=== PATIENT | female | born 1995 | race Caucasian/White ===

== ENCOUNTER 2018-10-06 20:30 | Observation (INO) | payer OTHER, SELFPAY ==
[2018-10-06 20:32] VITALS: BP 116/68; PULSE 73; RESP 27; TEMP 36.4; O2SAT 100; BMI 27.4
--- NOTE | 2018-10-06 20:38 | NURSING ---
PT WITH ABRASION TO RIGHT KNEE.
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
[2018-10-06] MEDS: Morphine 4 MG/ML Syringe IV (20:55)
[2018-10-06] MEDS: Ondansetron 4 MG/2 ML Vial IV (20:55)
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
[2018-10-06 21:30] VITALS: BP 126/72; PULSE 88; RESP 20; O2SAT 100
[2018-10-06 22:00] VITALS: BP 133/83; PULSE 85; RESP 16; O2SAT 100
[2018-10-06 23:00] VITALS: BP 118/71; PULSE 98; RESP 20; O2SAT 100
[2018-10-06] MEDS: Diphth,Pertuss(Acell),Tet Vac 0.5 ML Vial IM (23:58)
[2018-10-06] MEDS: Lidocaine/Epi/Tetracaine 50 ML 1 APPLIC TOPICAL (23:59)
[2018-10-07] VITALS: BP 121/66; PULSE 81; RESP 16; O2SAT 99
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
[2018-10-07] MEDS: Ibuprofen 600 MG Tablet PO (01:46)
[2018-10-07] MEDS: proMETHazine 25 MG/ML Syringe 6.25 MG IV (01:47)
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
[2018-10-07 03:49] VITALS: BMI 28.3; BMI 28.4
[2018-10-07 04:00] VITALS: BP 117/68; PULSE 76; RESP 18; TEMP 37; O2SAT 98
[2018-10-07] MEDS: 0.9% Normal Saline 1,000 ML 125 ML IV (04:22)
[2018-10-07] MEDS: 0.9% NaCl Peripheral Flush Adult/Peds IV ×2 (04:23→10:42)
[2018-10-07 05:12] LABS: Absolute Lymphocyte Count 1.49 X10^3/ul (0.83-4.51); Absolute Neutrophil Count 10.5 X10^3/uL (2.0-7.7); Basophil# 0.04 X10^3/uL; Basophil% 0.3 % (0-1); Eosinophil# 0.08 X10^3/uL; Eosinophils% 0.6 % (0-5); Hematocrit 38.8 % (37-47); Hemoglobin 12.5 g/dl (12.0-15.0); Lymphocyte # 1.49 X10^3/ul (4.0); Lymphocyte % 11.5 % (19-41); Mean Corp Hgb Conc 32.2 g/gl (32-36); Mean Corpuscular Hgb 26.5 pg (27.0-32.0); Mean Corpuscular Volume 82.4 fL (81-99); Mean Platelet Vol. 11.4 fl (6.2-12.0); Monocyte% 6.2 % (0-10); Neutrophil # 10.51 X10^3/uL (2.7-7.7); Neutrophil % 81.2 % (47-70); Platelet Count 288 K/mm3 (150-450); RBC Distribution Width CV 14.3 % (11.6-14.6); RBC Distribution Width SD 42.9 fl (35.1-43.9); Red Blood Count 4.71 M/mm3 (4.2-5.4)
[2018-10-07 05:17] LABS: POSITIVE COUNT NO; POSITIVE DIFFERENTIAL NO; POSITIVE MORPHOLOGY NO
[2018-10-07 05:20] LABS: Anion Gap 11 (5-15); BUN 11 mg/dL (7-18); BUN/Creat Ratio 12.6 RATIO (10-20); Calcium,Total 8.8 mg/dL (8.5-10.1); Chloride 109 mmol/L (98-107); Creatinine, Serum 0.87 mg/dL (0.55-1.02); EST Glomerular Filtration Rate 85 mL/min (>60); Est Glom Filt Rate - Afr Amer 103 mL/min (>60); Estimated Creatinine Clearance 89.72 ml/min; Glucose 96 mg/dL (74-106); Potassium 4.2 mmol/L (3.5-5.1); Sodium Level 137 mmol/L (136-145)
[2018-10-07 05:21] VITALS: BP 120/68
[2018-10-07 08:30] VITALS: BP 97/54; PULSE 73; RESP 18; TEMP 36.9; O2SAT 100
[2018-10-07] MEDS: Ketorolac 30 MG/ML Syringe IV (10:42)
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
[2018-10-07 13:06] VITALS: BP 109/59; PULSE 72; RESP 18; TEMP 36.7; O2SAT 100
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
== END 2018-10-07 13:15 | disposition home or self-care (01) ==
LOC: ED 21:04 → MS3 10-07 03:04
PROVIDERS: Admitting Provider Student in an Organized Health Care Education/Training Program; Emergency Provider Emergency Medicine; Family Provider Pediatrics; PCP Pediatrics; Visit Provider Internal Medicine
DX: F07.81 Postconcussional syndrome (principal); S81.011A Laceration without foreign body, right knee, initial encounter; V49.50XA Passenger injured in collision with unspecified motor vehicles in traffic accident, initial encounter; Y93.9 Activity, unspecified; Y92.9 Unspecified place or not applicable; Y99.9 Unspecified external cause status; S00.91XA Abrasion of unspecified part of head, initial encounter; R10.9 Unspecified abdominal pain; S90.31XA Contusion of right foot, initial encounter
CPT/HCPCS: 12001; 70450; 71260; 72125; 73564; 73630; 74177; 80048; 85025; 90715; 96361; 96374; 96375; 99218; 99285; J7030; Q9967; A4216; G0378; J2405

== ENCOUNTER 2018-12-26 08:07 | Day surgery (SDC) | payer OTHER, SELFPAY ==
[2018-10-07 03:49] VITALS: BMI 28.3
--- NOTE | 2018-12-25 13:42 | HP.PCM_ITS ---
History and Physical Date of Admission: 12/26/18 Pre-Op History and Physical ? HPI: The patient is a 23 year old female presenting for pre-operative visit. She is scheduled for laparoscopic removal of left adnexal mass, likely ovarian cyst or paratubal cyst, for adnexal mass on?12/26/18. ??Procedure discussed along with risks, benefits and complications. ?Other alternatives discussed for management. Consent form signed??Yes.? PAST?MEDICAL?HISTORY PAST MEDICAL HISTORY Diagnosis Date ? Irregular menstrual cycle ? ? Menarche ? ? 2007 age 11 ? NEGATIVE HISTORY OF --2011 ? Normal Color Vision ? ? PAST?SURGICAL?HISTORY PAST SURGICAL HISTORY Procedure Laterality Date ? NONE ? CURRENT?MEDICATIONS ? Current Outpatient Medications: zonisamide (ZONEGRAN) 50 mg capsule Take 1-3 capsules by mouth once daily. Disp: 90 capsule Rfl: 3 albuterol HFA (PROAIR HFA) 90 mcg/actuation inhaler Inhale 2 Puffs as instructed every 4 hours as needed. Disp: 1 Inhaler Rfl: 0 ? No current facility-administered medications for this visit.? ? ALLERGIES:?Ceclor [Cefaclor]; Environmental [Other] ? PERSONAL HISTORY:? SOCIAL?HISTORY Social History ??Socioeconomic History ?Marital status: Single ?Spouse name: Not on file ?Number of children: 0 ?Years of education: Not on file ?Highest education level: Not on file ??Social Needs ?Financial resource strain: Not on file ?Food insecurity - worry: Not on file ?Food insecurity - inability: Not on file ?Transportation needs - medical: Not on file ?Transportation needs - non-medical: Not on file ??Occupational History ?Comment: student/[place] ??Tobacco Use ?Smoking status: Never Smoker ?Smokeless tobacco: Never Used ??Substance and Sexual Activity ?Alcohol use: No ?Drug use: No ?Sexual activity: Not Currently ?Comment: never SA ??Other Topics ?Concerns: ?Not on file ??Social History Narrative ?Not on file ? FAMILY HISTORY:? FAMILY?HISTORY FAMILY HISTORY Problem Relation Age of Onset ? Heart Father ?Stent - 09/2007 ? Cervical Cancer Maternal Grandmother ? ? Cancer Paternal Grandfather ? ? REVIEW OF SYMPTOMS: GENERAL: denies fevers or chills ENDOCRINOLOGY: has not been on steroids Cardiology : denies palpitations or chest pain Respiratory: denies SOB or cough Hematology: denies history of prolonged bleeding or easy bruising or VTE Allergy: Denies history of personal or family history of allergy to anesthesia ? ? PHYSICAL EXAMINATION: ? VITALS:?There were no vitals taken for this visit. ? GENERAL:??The patient is well nourished, well hydrated in no acute distress. ?, The patient is oriented to time, place, and person. NECK:?Supple. No lynphadenopathy, normal thyroid, no thyromegaly. LUNGS:?Clear to auscultation bilaterally. no wheezes, rhonchi or rales HEART:?Regular rate and rhythm, Normal heart sounds and No murmurs or gallops ? IMPRESSION:?left adexal mass, likely ovarian cyst or paratubal cyst ? PLAN:???The risks/benefits/alternatives and personal involved for the planned laparoscopic removal of left adnexal mass were reviewed with the patient. Her questions were answered to her satisfaction and she desires to proceed. ?Consent was signed. ?I reviewed with her postop instructions and expectations. ?Likely benign but discussed with her final determination cannot be made until pathology is back. Understands small risk of oophorectomy. ?Does not need to have ca 125 drawn ? ? I have reviewed and updated past medical and surgical history, medications and allergies? H&P completed in my office on 12/25/18. Taylor Maldonado M.D. No clinically relevant updates since entered.
[2018-12-26] VITALS (8 sets, daily range): BP systolic 112–127; BP diastolic 67–74; PULSE 52–100; RESP 16–18; TEMP 36.1–37.1; O2SAT 99–100; BMI 27.5
--- NOTE | 2018-12-26 | MASS_PTH ---
PATIENT: STAN DAI LOC: [facility] [place] U#:[id number] AGE/SX: 23/F ROOM: RE12/26/[address]: Dr. Taylor Maldonado MD : 1995 BED: DIS: 12/26/2018 SPEC #: [id number] RECD: 12/26/18 10:40 STATUS: UDLCE CINDI #: [id number] KENYA: 12/26/18 00:[address]: Taylor Maldonado DEPT: SURGICAL PATHOLOGY RECD BY: Kiley Li ENTERED: 12/26/18 11:04 SP TYPE: Mass OTHR DR: Dr. Kirk Prasad DO Tissues: A - OVARIAN CYST Procedures: Frozen Section (charge) Frozen Section Add'l ([facility]) Surgery Specimen Level IV Surgery Specimen Level V HEADER OPERATION: Laparoscopic left ovarian cystectomy, frozen section; left salpingo-oophorectomy PRE-OP DIAGNOSIS: Left adnexal mass TISSUE SUBMITTED: A - Left ovarian cyst wall, frozen section, B - Left ovary and fallopian tube FROZEN SECTION DIAGNOSIS A. Left ovarian cyst wall, biopsy: Negative for malignancy. MIGUEL ÁNGEL:lis 12/26/18 MICROSCOPIC DIAGNOSIS A. Left ovarian cyst wall, biopsy: Consistent with fragments of serous cystadenofibroma. B. Left ovary and fallopian tube, salpingo-oophorectomy: Serous cystadenofibroma. Hemorrhagic corpus luteal cysts. Left fallopian tube with no pathologic change. AM:lis 12/27/18 COMMENT Case has been reviewed in consultation with Dr. Mccray who concurs with the above diagnosis. IDC:MIGUEL ÁNGEL MICROSCOPIC DESCRIPTION Slides are reviewed. GROSS DESCRIPTION A - Received fresh for frozen section diagnosis labeled with the patient's name is a specimen designated left ovarian cyst wall. The specimen consists of a piece of saunders, indurated tissue consisting of cyst wall measuring 4 x 2 x 0.3 cm. One surface is inked. No papillations are identified. The entire specimen is submitted in two cassettes as follows: 1 - frozen section, 2 - rest of the specimen. B - Received in fixative is one container labeled with the patient's name and designated left ovary and fallopian tube. The specimen consists of a previously opened cyst, fallopian tube and ovary. The previously opened cyst is adherent to the fimbrial end of the fallopian tube. No connection of this cyst is noted with the ovary. The fallopian tube measures 9 cm in length and up to 0.7 cm in diameter. No tuboovarian adhesions are noted. A focal area of adhesion of fimbrial end with the cyst is noted. Sections of fallopian tube reveal unremarkable cut surfaces. The soft to cystic ovary measures 5 x 2.5 x 2 cm. Sections reveal multiple cysts filled with clear to hemorrhagic fluid. The largest cyst measures 1.5 cm in greatest dimension. A hemorrhagic corpus luteum is also noted measuring 1 cm in greatest dimension. The previously opened cyst measures 8.5 x 6.5 x 2 cm. The outer cyst wall is smooth. The inner cyst wall shows focal area of papillation. The largest area of papillation measures 4 x 1 x 0.3 cm. The cyst wall measures up to 0.2 cm in thickness. Embossing Press Operator Apprentice sections are submitted in eight cassettes as follows: 1 - fallopian tube, 2-4 - ovary, 5 - ovary with adherent portion of fimbrial end of the fallopian tube, 6-8 - cyst, entire area with papillation is submitted. / MIGUEL ÁNGEL:lis 12/26/18 TC:1 CPT: 17775, 04691, 40083, 74795
--- NOTE | 2018-12-26 | FLU_PTH ---
PATIENT: STAN DAI LOC: [facility] [place] U#:[id number] AGE/SX: 23/F ROOM: RE12/26/[address]: Dr. Taylor Maldonado MD : 1995 BED: DIS: 12/26/2018 SPEC #: [id number] RECD: 12/26/18 12:50 STATUS: DULCE CINDI #: [id number] KENYA: 12/26/18 00:[address]: Taylor Maldonado DEPT: CYTOLOGY RECD BY: Sunil Márquez ENTERED: 12/26/18 12:51 SP TYPE: Fluid OTHR DR: Dr. Kirk Prasad, Tissues: OVARIAN CYST Procedures: Special Stain Group II Surgery Specimen Level IV Cytospin Fluid HEADER OPERATION: Left ovarian cystectomy PRE-OP DIAGNOSIS: Left adnexal mass TISSUE SUBMITTED: Ovarian cyst fluid for cytology DIAGNOSIS CYTOLOGY Ovarian cyst fluid for cytology (cytospin and cell block): Negative for malignant cells. AM:lis 12/27/18 CYTOLOGY STUDY Slides are reviewed. CYTOLOGY GROSS Received is 25 ml of clear yellow fluid labeled with the patient's name and and designated per the requisition as left ovarian cyst. Submitted for cytology preparation including cell block. / 12/26/18 TC:5 CPT: 88760, 37809
[2018-12-26 08:31] LABS: Internal QC Validated? YES +Cl - CLEAR BKGD; Pregnancy, Urine Negative Negative
[2018-12-26 09:00] LABS: Hematocrit 39.7 % (37-47); Hemoglobin 12.9 g/dl (12.0-15.0); Mean Corp Hgb Conc 32.5 g/gl (32-36); Mean Corpuscular Volume 83.1 fL (81-99); Mean Platelet Vol. 11.2 fl (6.2-12.0); Platelet Count 289 K/mm3 (150-450); RBC Distribution Width CV 13.8 % (11.6-14.6); RBC Distribution Width SD 41.8 fl (35.1-43.9); Red Blood Count 4.78 M/mm3 (4.2-5.4); White Blood Count 5.9 K/mm3 (4.4-11.0)
[2018-12-26] MEDS: Celecoxib 200 MG Capsule PO (09:00)
[2018-12-26] MEDS: Acetaminophen 500 MG Tablet 1000 MG PO (09:00)
[2018-12-26 09:01] LABS: Scan Indicated on CBC? Y/N NO
[2018-12-26] MEDS: Bupivacaine Mpf 0.5% 30 ML VIAL (09:12)
[2018-12-26 11:06] LABS: Cytology, Body Fluid / CSF SEE PATHOLOGY REPORT
--- NOTE | 2018-12-26 11:10 | PCM.DC.TUB ---
Discharge Diet: No Restrictions - Increase fluid intake for the next 48 hours. Discharge Activity: Return to Normal Activity, May Drive - when you are no longer taking pain/narcotic meds., May Shower, May Take a Tub Bath - in 7 days Return to work on:: 12/31/18 May shower in (days): 1 May resume sexual activity in: 1 week Additional Activity Instructions:: Ambulate often the next week after surgery. Nothing in the vagina for 5 days. Call your doctor if your incision/area has: Continuous Slow Oozing, Sudden Increased Bleeding, Increased Pain/ Swelling, Increased Redness, Foul Smelling Discharge Call your doctor if you observe: Fever of 101 or Higher Cleanse incision/area with: Soap & Water, - - leave skin glue on for at least 10 days Allergies/Adverse Reactions: Allergies cefaclor [From Ceclor] Allergy (Verified 12/26/18 08:45) Unknown Medications to take at Discharge Zonisamide [Zonegran] 50 mg PO DAILY 12/19/18 Hydrocodone Bitart/Apap 5-325 [[place] 5MG-325MG] 1 tablet PO Q6H PRN PRN 4 Days #14 tablet 12/26/18 Ibuprofen [Motrin] 600 mg PO Q6H PRN #60 tablet 12/26/18 The following prescriptions were given: Hydrocodone Bitart/Apap 5-325 [[place] 5MG-325MG] 1 tablet PO Q6H PRN PRN 4 Days #14 tablet PRN Reason: Pain Ibuprofen [Motrin] 600 mg PO Q6H PRN #60 tablet PRN Reason: Pain Primary Care Physician: Kirk Prasad DO [Primary Care Provider] - Test Results: Test results from this visit will be discussed in further detail at your follow-up appointment, if applicable. Please Follow Up With: Taylor Maldonado MD - [phone] When: 1-3 weeks or prn
--- NOTE | 2018-12-26 11:12 | OP.PCM_ITS ---
Report of Operation Date of Procedure: 12/26/18 Pre-Operative Diagnosis: left ovarian cyst Post-Operative Diagnosis: same Surgery/Procedure Performed:: Laparoscopic left salpingo-oophorectomy Description of Surgical Findings:: Normal-appearing right tube and ovary, uterus, appendix and remainder of peritoneal cavity. Left ovary there is an approximately a 5 x 5 x 4 cm ovary, the tube is stretched over this portion of the ovary and there is then a pedunculated area of the ovary that extends into the entire posterior cul-de-sac and feels this entire space. It is attached to the left ovary. The tube is stretched over this and around it. The ovarian cyst itself is smooth. There are no excrescences externally. The cyst fluid was clear to grayish-yellow color. There did appear to be some excrescences on the inside of the ovarian cyst and the wall was very thick and firm. advisory application developer: Scar Minor advisory application developer: Cassidy Lindsey [email or web address] Type of Anesthesia:: General Special Medications: none Specimen's removed: left tube and ovary, ovarian cyst fluid Drains: none Estimated Blood Loss (mL): 10 Fluids Replaced: 1000cc Description of Procedure: The patient was taken to the operating room where she was prepped and draped in the dorsolithotomy position. A weighted speculum was placed in the vagina and the anterior lip of the cervix was grasped with a tenaculum. The Konn cannula uterine manipulator was placed and the remainder of the instruments were removed from the vagina. The Radha uterine manipulator was not placed due to having an stenotic internal cervical loss. Attention was turned to the abdomen. All port sites were infiltrated with 0.5% Marcaine before skin incisions were made. A 5 mm intraumbilical incision was made. The anterior abdominal wall was tented up with 2 towel clamps while a 5 mm blade less trocar and sleeve were directly inserted. Intraperitoneal placement was confirmed with the laparoscope. The pneumoperitoneum was created and the underlying abdominal contents were intact. The patient was placed in Trendelenburg. A left lower quadrant 5 mm was placed under direct visualization lateral to the inferior epigastric vessels. The bowel was swept away and the above findings were noted. Decision was then made to place a 12 mm port in the right lower quadrant. This was placed under direct visualization without difficulty. The suction director of corporate sponsorships was used to perforate the ovarian cyst and some of the fluid was suctioned out. Some of the fluid was collected to send a cytology. Scissors were then used to extend the incision in the ovary and it was noted that the thick wall was very firm and difficult to cut with the scissors. I then attempted to shell the cyst wall away from the ovary, but it was so adherent that I was unable to do so. It was then noted that there was some excrescences on the cyst wall. A portion of the cyst wall that was approximately 2 x 2 cm was excised with the LigaSure device and sent for frozen section. I then used the LigaSure device and attempted to remove the ovarian cyst and wall with the LigaSure device, but again the wall was so thick that it was difficult to get a grasp in the tissue with just slide directly out of the LigaSure every time I activated the device. The tube was also wrapped around the cyst. At this point, with the atypical appearance of the cyst and the large size, the decision was made that in order to remove the cyst the entire blood supply would have to be secured in the entire ovary removed. I attempted to separate the tube away from the ovary, but was unable to do so because of the dense adhesions between the 2. Decision was made to proceed with left salpingo- oophorectomy. The infundibulopelvic ligament was clamped, sealed and transected with the LigaSure device. The utero-ovarian ligament was clamped, transected and secured with the LigaSure device. The pedicles were hemostatic. The specimen was placed in an Endo Catch bag and brought out through the 12 mm port on the right side. The peritoneum and fascia had to be stretched somewhat to allow the specimen to come out intact in the bag. At this point, 2 L of saline were used to irrigate the peritoneal cavity. The pedicles were again examined and found to be hemostatic. An 0 Vicryl suture was placed through the fascia of the 12 mm port site and closure and secured. The lateral ports were removed under direct visualization and no active bleeding was noted. The pneumoperitoneum was released. The skin incisions were closed with Monocryl suture in a subcuticular fashion and skin glue by the DISTRIBUTION SYSTEMS SUPERINTENDENT. The vaginal instruments were removed and the vaginal sweep was completed by me. The procedure was performed by me with assistance other than as dictated above. All sponge and needle counts were correct and the patient was taken to the recovery room in stable condition. Grafts/Implants Used: none - Complications none - Admit VTE Documentation VTE Present on Admission: No VTE Mechan Device Prophylaxis: SCD's VTE Pharm Prophylaxis ordered?: No Reason prophylaxis not ordered:: Procedure Not Indicated
[2018-12-26] MEDS: Ketorolac 30 MG/ML Syringe IV (11:35)
== END 2018-12-26 14:43 | disposition home or self-care (01) ==
LOC: SDC 08:11 → AC 08:13
PROVIDERS: Family Provider Pediatrics; PCP Pediatrics; Referring Provider Obstetrics & Gynecology; Visit Provider Obstetrics & Gynecology
PROC: (CPT 58661; principal; 2018-12-26 09:45)
DX: N83.12 Corpus luteum cyst of left ovary (principal); Z79.899 Other long term (current) drug therapy; D27.1 Benign neoplasm of left ovary
CPT/HCPCS: 00840; 58661; 36415; 81025; 85027; 88108; 88305; 88307; 88313; 88331; 88332; J7120; J2405

== ENCOUNTER 2019-11-30 16:50 | Emergency (ER) | payer OTHER, SELFPAY ==
[2018-12-26 08:48] VITALS: BMI 27.5
[2019-11-30 16:50] VITALS: BP 134/74; PULSE 90; RESP 16; TEMP 36.6; O2SAT 100; BMI 26.8
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
[2019-11-30] MEDS: Ibuprofen 400 MG Tablet 800 MG PO (17:40)
== END 2019-11-30 18:42 | disposition home or self-care (01) ==
PROVIDERS: Emergency Provider Emergency Medicine; PCP Pediatrics
DX: S02.2XXA Fracture of nasal bones, initial encounter for closed fracture (principal); S16.1XXA Strain of muscle, fascia and tendon at neck level, initial encounter; R40.2410 Glasgow coma scale score 13-15, unspecified time; V49.9XXA Car occupant (driver) (passenger) injured in unspecified traffic accident, initial encounter; Y93.9 Activity, unspecified; Y92.9 Unspecified place or not applicable
CPT/HCPCS: 70160; 70450; 71045; 72125; 99283

== ENCOUNTER 2020-08-29 14:34 | Emergency (ER) | payer OTHER, SELFPAY ==
[2020-08-29 14:36] VITALS: BP 112/80; PULSE 70; RESP 16; TEMP 36.2; O2SAT 100; BMI 28.3
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
--- NOTE | 2020-08-29 14:53 | ED.VIS.UPPEX ---
History of Present Illness Chief Complaint: Upper Extremity Injury Informant: Patient Occurred: Today Mechanism/Context: Fall Onset: Today Context: Sudden Onset Timing: Continuous Quality of Pain: Sharp, Throbbing Location: Right hand and wrist Current Severity: Severe Maximum Severity: Severe Worsened by: Movement Relieved by: Rest Associated Symptoms: Negative for: Parasthesia, Weakness, Loss of Funtion Narrative: 25-year-old healthy female no significant past medical history [id number] presents to the emergency department with a right hand and wrist injury. She was on a sled being pulled by her mom's car and was holding onto a rope and she tried to fall off the sled and the rope got stuck on her hand and wrist jerked it and then she fell. Denies any other injuries. She was wearing a helmet. She is having pain and swelling over her hand and wrist. No history of injury or surgery previously. No numbness tingling or weakness. No other injuries are noted. Tetanus Immunization: Unknown Prior similar symptoms: No Recent Illness/Hospitalization: No Past Medical History - Allergies and Home Meds Allergies/Adverse Reactions: Allergies cefaclor [From Ceclor] Allergy (Verified 08/29/20 14:35) Unknown Primary Care Physician: Kirk Prasad DO [Primary Care Provider] - Prior records reviewed: Yes Past Medical History: None Surgical History: no surgical history, - - Left oophorectomy with cystectomy Smoking Status: Never smoker - Family History Maternal Family History: Reports: No pertinent history Paternal Family History: Reports: No pertinent history Review of Systems All systems negative except as indicated General: Denies: Chills, Fever, Sweats Eyes: Denies: Visual changes - bilaterally, Diplopia ENT: Denies: Rhinorrhea, Sore throat Cardiovascular: Denies: Chest pain, Palpitations Respiratory: Denies: Dyspnea, Cough, Dyspnea on exertion Gastrointestinal: Denies: Abdominal pain, Nausea, Vomiting, Diarrhea, Melena, Hematochezia Genitourinary: Denies: Dysuria, Hematuria, Frequency Musculoskeletal: Reports: Swelling, Extremity Pain. Denies: Back pain Skin: Denies: Rash, Wounds Neurological: Denies: Headache, Weakness, Numbness Physical Exam Vital Signs/Narrative: Vital Signs Temp Pulse Resp BP Pulse Ox 08/29/20 14:36 97.2 F L 70 16 112/80 100 Inital Vital Signs reviewed: Yes Right Hand: - - Swelling and bruising over the palmar aspect right hand over the thenar eminence. Diffusely tender on palpation over this area over the proximal phalanx of the thumb and the distal radius. No snuffbox tenderness. Limited range of motion of the thumb due to pain and swelling. NAROM wrist General: Well nourished, Well developed Head: Normocephalic, Atraumatic Eyes: Perrl, EOMI ENT: No Trauma, Moist Mucous Membranes Neck: Nontender, Full ROM Cardiovascular: Regular rate, Regular rhythm, No murmurs Respiratory: No distress, CTA bilaterally, Chest nontender Abdomen: Soft, Nontender, Nondistended, Normal bowel sounds Back: Nontender Skin: Normal color, No rash Neurological: Alert, Oriented x3, Cranial nerves II-XII grossly intact, Normal Strength, Normal Sensation Psychological: Normal affect Diagnostic/Tx/Re-eval Impressions Hand X-Ray 08/29/20 14:45 IMPRESSION: Normal x-ray examination of the hand. Electronically Signed: William Moura at 16:17 EST Tel , Service support , Wrist X-Ray 08/29/20 14:45 IMPRESSION: Normal x-ray examination of the wrist. Electronically Signed: Rm Torres MD at 15:54 EST , Service support , 08/29/20 14:45 Hand Min 3 Views [RAD] Stat Xray Wrist [Wrist min 3 Views] [RAD] Stat - Medical Decision Making Patient was given a dose of Tylenol for pain per her request. X-rays were obtained of the right hand and wrist, no acute abnormalities were noted per radiology. Repeat exam patient is feeling improved after the Tylenol. We will place her in a thumb spica splint for concern for a sprain of her thumb. She will be given follow-up with orthopedics. She has both Motrin and Tylenol at home to take for pain. She was advised to rest ice elevate and follow-up as directed or she is to return to the emergency department for worsening symptoms which were discussed. ED Disposition - Plan for ED Patient: Disposition: Home or Assisted Living Diagnosis: Sprain of hand, thumb, right, Sprain of right hand Instructions: ED Hand Sprain Referrals: Kirk Prasad DO [Primary Care Provider] - Pj Arellano DO [STAFF PHYSICIAN] -
[2020-08-29] MEDS: Acetaminophen 500 MG Tablet 1000 MG PO (15:48)
[2020-08-29 16:41] VITALS: RESP 16
== END 2020-08-29 16:42 | disposition home or self-care (01) ==
PROVIDERS: Emergency Provider Physician Assistant Medical; PCP Pediatrics
DX: S63.601A Unspecified sprain of right thumb, initial encounter (principal); S63.91XA Sprain of unspecified part of right wrist and hand, initial encounter; X50.1XXA Overexertion from prolonged static or awkward postures, initial encounter; Y93.23 Activity, snow (alpine) (downhill) skiing, snowboarding, sledding, tobogganing and snow tubing; Y92.9 Unspecified place or not applicable
CPT/HCPCS: 29125; 73110; 73130; 99283

== ENCOUNTER 2023-08-30 18:05 | Emergency (ER) | payer OTHER, SELFPAY ==
[2023-08-30 18:06] VITALS: BP 131/86; PULSE 88; RESP 18; TEMP 35.7; O2SAT 100; BMI 30.1
[2023-08-30 18:44] VITALS: BP 117/72; PULSE 71; RESP 16; O2SAT 98
--- NOTE | 2023-08-30 18:44 | ED.RN ---
PATIENT PRESENTS TAKE TO THE TRIAGE DESK COMPLAINS OF LIGHT HEADINESS SECONDARY EXAM COMPLETED
[2023-08-30 18:45] LABS: Absolute Lymphocyte Count 1.94 X10^3/uL (0.83-4.51); Absolute Neutrophil Count 4.7 X10^3/uL (2.0-7.7); Basophil# 0.07 X10^3/uL; Basophil% 0.9 % (0-1); Eosinophil# 0.39 X10^3/uL; Eosinophils% 5.1 % (0-5); Hematocrit 41.7 % (37-47); Hemoglobin 12.8 g/dL (12.0-15.0); Lymphocyte # 1.94 X10^3/ul (0.83-4.51); Lymphocyte % 25.5 % (19-41); Mean Corp Hgb Conc 30.7 g/dL (32-36); Mean Corpuscular Hgb 25.7 pg (27.0-32.0); Mean Corpuscular Volume 83.6 fL (81-99); Monocyte# 0.49 X10^3/uL; Monocyte% 6.4 % (0-10); NRBC Flagged by Analyzer 0 % (0-5); Neutrophil # 4.69 X10^3/uL (2.7-7.7); Neutrophil % 61.7 % (47-70); Platelet Count 333 K/mm3 (150-450); RBC Distribution Width CV 13.8 % (11.6-14.6); RBC Distribution Width SD 42.1 fl (35.1-43.9); Red Blood Count 4.99 M/mm3 (4.2-5.4); White Blood Count 7.6 K/mm3 (4.4-11.0)
[2023-08-30 18:53] LABS: Internal QC Validated? YES +Cl - CLEAR BKGD; Pregnancy, Serum, hCG Quali. NEGATIVE Negative
[2023-08-30 18:57] VITALS: BP 116/75; PULSE 76; RESP 18; O2SAT 100
[2023-08-30 19:01] LABS: AST(SGOT) 12 U/L (15-37); Alanine Aminotransfer ALT/SGPT 13 U/L (13-56); Alkaline Phosphatase 71 U/L (45-117); Anion Gap 5 (5-15); BUN 13 mg/dL (7-18); BUN/Creat Ratio 13.5 RATIO (10-20); Chloride 109 mmol/L (98-107); Creatinine, Serum 0.96 mg/dL (0.55-1.02); EST Glomerular Filtration Rate 73 mL/min (>60); Est Glom Filt Rate - Afr Amer 88 mL/min (>60); Estimated Creatinine Clearance 77.81 ml/min; Globulin 4.1 g/dL (2.2-4.2); Glucose 103 mg/dL (74-106); Potassium 3.3 mmol/L (3.5-5.1); Protein, Total 8.1 g/dL (6.4-8.2); Sodium Level 141 mmol/L (136-145)
--- NOTE | 2023-08-30 19:48 | ED.VIS.GI ---
HPI HPI - GI History of Present Illness Chief Complaint: Abd Pain Informant: patient Narrative Narrative: Patient having suprapubic cramping for the past 4 to 5 days, she states this started after her last menstrual cycle ended which was unusually irregular. She states the cramping feels like pelvic cramping that she gets during her cycle, as far as the type and location of discomfort. No back discomfort. She states for the past 2 or 3 days, she has had urinary frequency and urgency. No dysuria or hematuria. No fevers or chills or nausea or vomiting. However yesterday, the pain ramped up as she was doing light activity, helping to unload a truck at work, and she felt lightheaded like she may pass out but she did not. She eventually recovered and felt better but the pain persisted, just not as bad. The pain is there today but she has not had any near syncopal episodes today, but notes that when nursing placed an IV here prior to my evaluation, the needle made her feel like she was going to pass out as well. [facility] Medical History (Updated 08/30/23 @ 21:[address] Rm Connelly MD) Ovarian cyst Home Medications sulfamethoxazole 800 mg-trimethoprim 160 mg tablet 1 tab PO BID #6 TABLETS 08/30/23 [Rx Last Taken Unknown] Allergy/AdvReac Type Severity Reaction Status Date / Time cefaclor [From [facility]] Allergy Unknown Verified 08/30/23 18:06 Surgical History (Updated 08/30/23 @ 19:[address] Rm Connelly MD) History of left salpingo-oophorectomy Social History Smoking Status: Never smoker ROS ROS ED Constitutional Constitutional ED: Denies chills or fever(s) Eyes Eyes: Denies change in vision or diplopia ENT ENT ED: Denies rhinorrhea or sore throat Cardiovascular Cardiovascular: Reports lightheadedness; Denies chest pain, palpitations or syncope Respiratory/Chest Respiratory/Chest: Denies cough or dyspnea Gastrointestinal Gastrointestinal: Reports abdominal pain; Denies diarrhea, nausea or vomiting Genitourinary Genitourinary ED: Reports as per HPI, urinary frequency and urinary urgency; Denies dysuria, flank pain, hematuria, vaginal bleeding or vaginal discharge Musculoskeletal Musculoskeletal: Denies back pain or neck pain Integumentary Denies abscess or rash Neurologic Neurologic: Denies headache(s), paresthesias or weakness Psychiatric Psychiatric: Denies anxiety or suicidal thoughts EXAM Physical Exam Const Vital Signs: 08/30/23 18:06 08/30/23 18:44 08/30/23 18:57 Temperature 96.2 F L Temperature Source Temporal Pulse Rate 88 71 76 Respiratory Rate 18 16 18 Blood Pressure 131/86 H 117/72 116/75 Blood Pressure Mean 101 87 88 Pulse Ox 100 98 100 Oxygen Delivery Method Room Air Room Air Room Air Positive well nourished and well developed General Appearance ED: well developed and NAD HEENT Reports moist mucous membranes normocephalic and atraumatic Eyes PERRL and EOMs intact bilaterally Neck full ROM and supple Resp normal respiratory effort and clear to auscultation bilaterally Cardio regular rate, regular rhythm and no murmurs GI non-distended GI Narrative: Mild suprapubic tenderness. No lateralizing pelvic tenderness. No guarding or rebound. Benign abdomen overall. Auscultation: normoactive bowel sounds Palpation: soft Speculum Exam - Vagina: Negative for vaginal bleeding or vaginal discharge Back/Spine no CVA tenderness General Back: other FROM Extremity normal to inspection General Extremety ED: Negative for edema, pulses abnormal or tenderness General Extremity: Negative for edema or pulses abnormal Neuro oriented x3, CN's II-XII intact bilaterally and no sensory deficits noted Sensorium / Orientation: awake and alert Motor Exam: strength 5/5 throughout Skin no rashes or lesions noted and no wounds MDM MDM MDM Narrative Medical decision making narrative: Patient with urinary symptoms, seems like she has acute cystitis, this was confirmed with urinalysis. Seems uncomplicated I do not think we need to send her for culture she is healthy 28-year-old. Will place her on 3 days of Bactrim with the first dose being given here. The pain she is having certainly could be bladder related, in which case I would expect the pain and urinary symptoms to resolve together with the antibiotic. If not she should follow-up, indicating potential gynecologic etiology of the pain. Her exam is very benign and I do not think we need to emergently image her for an ovarian cyst or torsion, I discussed that with her and she is in agreement with this logic. She states that when urgent care sent her over here they said something about her appendix. I do not think this is appendicitis in any way, she has had pain for 5 days with a white blood count of 7.6, no leftward shift and no tenderness McBurney's point. I discussed that with her as well. We discussed reasons to return she comfortable with the plan. We did do a test which is negative, ruling out ectopic. With regards to the patient's lightheadedness and near syncopal episode yesterday, I suspect that this was vasovagal. She apparently has high vasovagal tone and/or is sensitive to this, especially since she had the exact same thing happen when nurses showed her the needle for the IV today. Lab Data Attestation: I reviewed the patient's lab results. Labs: Laboratory Results - last 24 hr 08/30/23 08/30/23 18:32 20:13 WBC 7.6 RBC 4.99 Hgb 12.8 Hct 41.7 MCV 83.6 MCH 25.7 L MCHC 30.7 L RDW Std Deviation 42.1 RDW Coeff of Imelda 13.8 Plt Count 333 MPV 11.0 Immature Gran % (Auto) 0.400 Neut % (Auto) 61.7 Lymph % (Auto) 25.5 [place] % (Auto) 6.4 Eos % (Auto) 5.1 H Baso % (Auto) 0.9 Absolute Neuts (auto) 4.7 Absolute Lymphs (auto) 1.94 Nucleated RBC % 0 Sodium 141 Potassium 3.3 L Chloride 109 H Carbon Dioxide 27.0 Anion Gap 5 BUN 13 Creatinine 0.96 Estim Creat Clear Calc 77.81 Est GFR (MDRD) Af Amer 88 Est GFR (MDRD) Non-Af 73 BUN/Creatinine Ratio 13.5 Glucose 103 Calcium 9.0 Total Bilirubin 0.30 AST 12 L ALT 13 Alkaline Phosphatase 71 Total Protein 8.1 Albumin 4.0 Globulin 4.1 Albumin/Globulin Ratio 1.0 Serum , Qual NEGATIVE Urine Color Yellow Urine Clarity Clear Urine pH 5.0 Ur Specific [place] 1.025 Urine Protein 15 H Urine Glucose (UA) Normal Urine Ketones 5 H Urine Occult Blood 150 H Urine Nitrite Negative Urine Bilirubin Negative Urine Urobilinogen Normal Ur Leukocyte Esterase 100 H Urine RBC 0-5 SEEN Urine WBC 25-50 SEEN Ur Squamous Epith Cells 0-5 SEEN Ur Transition Epith Cell 0 SEEN Urine Bacteria 0 SEEN Urine Mucus 1+ Discharge Plan Triage Chief Complaint: Abd Pain ED Provider: Rm Connelly Dx/Rx/DC Orders Clinical Impression: Acute cystitis without hematuria, Acute pelvic pain, female, Vasovagal near syncope Instructions: ED Cystitis Female Adult Prescriptions: New sulfamethoxazole-trimethoprim [sulfamethoxazole-trimethoprim] 800-160 mg tablet 1 tab PO BID Qty: 6 0RF Primary Care Provider: Sumaya Kaye NP Referrals: Sumaya Kaye NP, [facility] [Primary Care Provider] - 3-5 Days if not improving (If the antibiotic takes care of the urinary symptoms but the pain persists, follow-up) Disposition Disposition: Home, Self Care
--- OUTSIDE RECORDS SUMMARY | 2023-08-30 19:58 | XMS RPT_ITS | CCD ---
Author Name Unknown Address [address] [place] [address] Organization [facility] Care Team Providers Care Director Of Cardiopulmonary Services Name Role Phone BUCK ERWIN Referring Unavailable Mikki INTERNAL COMBUSTION ENGINE INSPECTOR.Sumaya GARRIDO Primary Care Provider SUMAYA KAYE Primary Care Unavailable MIKO WALKER Referring Unavailab MIKO Valentino Attending SUMAYA Granados Primary Care Unavailable CANDIE CAMARGO Referring Unavailable CANDIE CAMARGO Attending Unavailable SUMAYA KAYE Primary Care Unavailable Allergies Allergy Classification Reported Allergen(s) Allergy Type Date of Onset Reaction(s) Facility (5 sources) Cefaclor; Translations: [CEFACLOR] Drug Allergy 9 Rash [facility] Other [place] [facility] (2 sources) OTHER; Translations: [OTHER] Propensity to adverse reactions (disorder) 1 [facility] Other [place] [facility] (4 sources) Benzethonium / dyclonine; Translations: [DYCLONINE-BENZET HONIUM] Drug Allergy 9 Rash, Hives [facility] (3 sources) environmental [Other] Propensity to adverse reactions 1 Other: See Comments [facility] Medications Completed/Discontinued Medications Medication Drug Class(es) Dates Sig (Normalized) Sig (Original) acetaminophen 325 mg oral tablet (3 sources) Start: 10-07-2018 acetaminophen (TYLENOL) 325 mg tablet Acetaminophen Acetaminophen [Tylenol Tablet] 650 MG PO EVERY 6 HOURS NEEDED PRN For Pain October 07, 2018 Active 10-07-2018 [facility] ([id number]) 0 10/07/2018 Active Problems Active Problems Problem Classification Problem Date Documented Da te Episodic/Chronic Abdominal pain (2 sources) Unspecified abdominal pain; Translations: [Acute abdominal pain] Onset: 08-09-2022 08-09-2022 Episodic Immunizations and screening for infectious disease (1 source) Suspected disease caused by 2019-nCoV; Translations: [Suspected COVID-19 virus infection] 05-22-2023 Episodic Menstrual disorders (3 sources) Irregular periods; Translations: [Irregular menstruation, unspecified] Onset: 03-29-2015 03-29-2015 Chronic Other non-traumatic joint disorders (1 source) Pain in left ankle and joints of left foot; Translations: [Pain in left ankle and joints of left foot] Onset: 10-09-2018 Episodic Other screening for suspected conditions (not mental disorders or infectious disease) (2 sources) Patient encounter status; Translations: [Encounter for test, result unknown] Onset: 05-22-2023 05-22-2023 Episodic Other upper respiratory disease (3 sources) Seasonal allergy; Translations: [Other seasonal allergic rhinitis] Onset: 10-21-2011 10-21-2011 Chronic Unclassified (1 source) Suspected COVID-19 virus infection; Translations: [Suspected COVID-19 virus infection] Onset: 05-22-2023 Past or Other Problems Problem Classification Problem Date Documented Da te Episodic/Chronic Sprains and strains (3 sources) Injury of superior glenoid labrum of shoulder joint; Translations: [Superior glenoid labrum lesion of right shoulder, initial encounter] Onset: 03-13-2017 03-13-2017 Episodic Results Test Name Value Interpretation Reference Range Facil ity Vital Signs Date Time Vital Sign Value Performing Clinician Faci lity 05-22-2023 11:32-0400 Body temperature 98.49 [degF] Miko Walker MD Work Phone: [facility] 05-22-2023 11:32-0400 Diastolic blood pressure 72 mm[Hg] Miko Walker MD Work Phone: [facility] 05-22-2023 11:32-0400 Heart rate 88 /min Miko Walker MD Work Phone: [facility] 05-22-2023 11:32-0400 Respiratory rate 16 /min Miko Walker MD Work Phone: [facility] 05-22-2023 11:32-0400 SaO2% (BldA) [Mass fraction] 96 % Miko Walker MD Work Phone: [facility] 05-22-2023 11:32-0400 Systolic blood pressure 110 mm[Hg] Miko Walker MD Work Phone: [facility] Encounters Encounter Date Encounter Type Care Provider Facility Start: 05-23-2023 Telephone encounter Sumaya Zambrano INTERNAL COMBUSTION ENGINE INSPECTOR.GLASS BLOCK INSTALLER Work Phone: [facility] [place] Procedures Date Procedure Procedure Detail Performing Clinician Start: 05-22-2023 Urine test visual color cmprsn meths Miko Walker MD Work Phone: Start: 08-09-2022 Us transvaginal Candie Camargo MD Work Phone: Plan of Treatment Date Care Activity Detail Author Start: 10-06-2028 Urine microalbumin profile DTaP,Tdap,Td Vaccine (8 - Td or Tdap) [facility] Start: 05-04-2023 Influenza vaccination Influenza Vaccine (#1) [facility] Start: 09-03-2022 Depression Assessment Depression Assessment [facility] Start: 2015 Pap Testing Pap Testing [facility] Start: 2012 Hepatitis C Screening Hepatitis C Screening [facility] Start: 2012 HIV Screening HIV Screening [facility] Start: 01-19-1995 Covid-19 Vaccine (#1) Covid-19 Vaccine (#1) [facility] COVID & INFLUENZA A/ B & RSV NAAT, ROUTINE COVID & INFLUENZA A/B & RSV NAAT, ROUTINE Microbiology Routine Suspected COVID-19 virus infection 05/22/2023 12:03 PM EDT [facility] Work Phone: End: 08-09-2022 PELVIC US WHI PELVIC US WHI Anc Imaging Routine Acute abdominal pain 1 Occurrences starting 08/09/2022 until 08/09/2022 [facility] Work Phone: Immunizations Immunization Date Immunization Notes Care Provider Fa cility 08-12-2019 influenza, injectabl e, quadrivalent, contains preservative Miko Walker MD Work Phone: [facility] 08-12-2019 influenza virus vaccine, unspecified formulation Miko Walker MD Work Phone: [facility] 10-06-2018 tetanus toxoid, reduced diphtheria toxoid, and acellular pertussis vaccine, adsorbed Miko Walker MD Work Phone: [facility] Work Phone: 04-14-2013 Meningococcal, MCV4, unspecified conjugate formulation(groups A, C, Y and W-135) Miko Walker MD Work Phone: [facility] 04-06-2008 hepatitis A vaccine, unspecified formulation Miko Walker MD Work Phone: [facility] Work Phone: 04-11-2007 hepatitis A vaccine, unspecified formulation Miko Walker MD Work Phone: [facility] Work Phone: 04-11-2007 Meningococcal, MCV4, unspecified conjugate formulation(groups A, C, Y and W-135) Miko Walker MD Work Phone: [facility] Work Phone: 04-11-2007 tetanus toxoid, reduced diphtheria toxoid, and acellular pertussis vaccine, adsorbed Miko Walker MD Work Phone: [facility] Work Phone: 12-30-1999 diphtheria, tetanus toxoids and acellular pertussis vaccine Miko Walker MD Work Phone: [facility] Work Phone: 12-30-1999 measles, mumps and rubella virus vaccine Miko Walker MD Work Phone: [facility] Work Phone: 12-30-1999 poliovirus vaccine, inactivated Miko Walker MD Work Phone: [facility] Work Phone: 09-03-1996 chicken pox (disease) Den Walker MD Work Phone: [facility] Work Phone: 10-17-1995 diphtheria, tetanus toxoids and acellular pertussis vaccine Miko Walker MD Work Phone: [facility] Work Phone: 10-17-1995 haemophilus influenz ae type b vaccine, HbOC conjugate Miko Walker MD Work Phone: [facility] Work Phone: 07-23-1995 measles, mumps and rubella virus vaccine Miko Walker MD Work Phone: [facility] Work Phone: 01-20-1995 diphtheria, tetanus toxoids and acellular pertussis vaccine Miko Walker MD Work Phone: [facility] Work Phone: 01-20-1995 haemophilus influenz ae type b vaccine, HbOC conjugate Miko Walker MD Work Phone: [facility] Work Phone: 01-20-1995 hepatitis B vaccine, pediatric or pediatric/adolescent dosage Miko Walker MD Work Phone: [facility] Work Phone: 01-20-1995 poliovirus vaccine, inactivated Miko Walker MD Work Phone: [facility] Work Phone: 1994 diphtheria, tetanus toxoids and acellular pertussis vaccine Miko Walker MD Work Phone: [facility] Work Phone: 1994 haemophilus influenz ae type b vaccine, HbOC conjugate Miko Walker MD Work Phone: [facility] Work Phone: 1994 poliovirus vaccine, inactivated Miko Walker MD Work Phone: [facility] Work Phone: 1994 diphtheria, tetanus toxoids and acellular pertussis vaccine Miko Walker MD Work Phone: [facility] Work Phone: 1994 haemophilus influenz ae type b vaccine, HbOC conjugate Miko Walker MD Work Phone: [facility] Work Phone: 1994 poliovirus vaccine, inactivated Miko Walker MD Work Phone: [facility] Work Phone: 1994 hepatitis B vaccine, pediatric or pediatric/adolescent dosage Miko Walker MD Work Phone: [facility] Work Phone: 1994 hepatitis B vaccine, pediatric or pediatric/adolescent dosage Miko Walker MD Work Phone: [facility] Work Phone: Payers Date Payer Category Payer Private Health Insurance [employer] A ETNA ASA GENERIC [id number] 2022-Present [phone] [address] [place] [address] PPO [id number] 2022 Unknown [id number] Social History Date Type Detail Facility Start: 04-15-2014 Tobacco smoking stat us COIS Never smoked tobacco [facility] Start: 04-15-2014 Tobacco use and exposure Smoke less tobacco non-user [facility] Start: 07-26-2022 End: 05-22-2023 Alcohol intake Current non-drinker of alcohol (finding) [facility] Start: 08-10-2020 End: 05-22-2023 History of Social function [facility] Start: 08-10-2020 End: 05-22-2023 Tobacco use panel [facility] Adult Depression Scr eening Assessment 0 [facility] Start: 1994 Sex Assigned At Not on file [facility] Clinical Notes 10-21-2011 to 05-23-2023 Telephone Encounter - Sigrid Winkler RN - 05/23/2023 10:09 AM EDTTelephone Encounter - Tabatha Guerra RN - 05/23/2023 8:45 AM EDTBMiko alex MD - 05/22/2023 11:41 AM EDT Note Date & Type Note Facility 05-23-2023 Miscellaneous Notes Formattin g of this note might be different from the original. Patient notified of results and provider's instructions. Patient verbalizes understanding. Sigrid Winkler RN Images from the original note were not included. VM left for patient to contact provider's office to ensure she has received message below. Tabatha Guerra RN Result Notes Miko Walker MD 05/23/2023 8:05 AM EDT Patient is COVID positive. Flu and RSV negative. Recommend rest, supportive care, and should isolate until: At least 5 days have passed since symptoms first appeared and At least 24 hours have passed since last fever without the use of fever-reducing medications and Symptoms (e.g., cough, shortness of breath) have improved. Should wear mask for at least 5 days after she ends isolation to prevent spread to others. Return to work letter sent via [employer]. documented in this encounter [facility] 05-22-2023 Note HNO ID: [id number] Author: Miko Walker MD Service: ? Author Type: Physician Type: Progress Notes Filed: 05/22/2023 1:07 PM Note Text: Chief Complaint Patient presents with: Abdominal Pain Ear Problem Cough Sinus Problem Dizziness Diarrhea: Onset Sunday HPI Mili Loco is a 27 year old female who presents here today for Above Complaints.. Patient complaining of dry cough, SOB, chest congestion, headache, nasal congestion, rhinorrhea, ear fullness, diarrhea, abdominal pain for the last 2 days. Treating with Dayquil and benadryl at home. Symptoms were better today and are worse again today. Denies fever/chills, wheezing, chest pain, sore throat, myalgias, new loss of taste/smell, nausea, vomiting. No recent sick contacts. No known COVID exposure. Has not tested for COVID thus far. LMP 05/06. Does not think she is currently , but is trying to become . Past medical history, appointments, medications, allergies reviewed. Previous Medical History PAST MEDICAL HISTORY Diagnosis Date Irregular menstrual cycle Menarche 2007 age 11 NEGATIVE HISTORY OF - Normal Color Vision Previous Surgical History PAST SURGICAL HISTORY Procedure Laterality Date LAPAROSCOPY W/RMVL ADNEXAL STRUCTURES Left 12/26/2018 LSO for large atypical appearing cyst Family History FAMILY HISTORY Problem Relation Age of Onset No Known Problems Mother Heart Father Stent - 09/2007 Cervical Cancer Maternal Grandmother Cancer Paternal Grandfather Patient Allergies ALLERGIES Allergen Reactions Ceclor [Cefaclor] Rash Environmental [Othe* Other: See Comments trees (November, December and January) grasses (January and February) weeds (April, May and June) ragweed (April, May and June) Liquid Bandage [Dyc* Rash, Hives dermabond Current Medications Current Outpatient Medications on File Prior to Visit Medication Sig clotrimazole (LOTRIMIN, CLOTRIM) 1 % cream Apply to affected area twice daily. SUMAtriptan (IMITREX) 50 mg tablet Take 1 tablet by mouth at onset of migraine, may take again in 2 hours if necessary. Ibuprofen 200 mg cap 400 mg. acetaminophen (TYLENOL) 325 mg tablet Acetaminophen Acetaminophen [Tylenol Tablet] 650 MG PO EVERY 6 HOURS NEEDED PRN For Pain October 07, 2018 Active 10-07-2018 [facility] ([id number]) No current facility-administered medications on file prior to visit. Social History Social History Tobacco Use Smoking status: Never Smokeless tobacco: Never Vaping Use Vaping Use: Never used Substance Use Topics Alcohol use: No Drug use: No Review of Symptoms REVIEW OF SYSTEMS See HPI EXAM: BP 110/72 Pulse 88 Temp 36.9 ?C (98.5 ?F) Resp 16 LMP 05/06/2023 (Exact Date) SpO2 96% General Appearance: ill appearing, in no acute distress Skin: Skin color, texture, turgor normal, no suspicious rashes or lesions. Head: Normocephalic, no masses, lesions, tenderness or abnormalities. Eyes: Anicteric sclera. Pupils are equally round and reactive to light. Extraocular movements are intact. . Ears: External ears normal, canals clear. Nose/Sinuses: Nares normal, septum midline, mucosa normal, no drainage or sinus tenderness. Oropharynx: Lips, mucosa, and tongue normal, teeth and gums normal, oropharynx normal. Neck: Supple, no adenopathy; thyroid symmetric, normal size, no bruits. Lungs: Lungs clear to auscultation. No wheezing, rhonchi, rales.. Heart: RRR without murmur, gallop, or rubs. No ectopy. Abdomen: Normal abdominal exam, Abdomen soft, non-tender. Bowel sounds normal. No masses, organomegaly. Health Maintenance List Covid-19 Vaccine(1) Never done Hepatitis C Screening Never done HIV Screening Never done Pap Testing Never done Depression Assessment Never done Influenza Vaccine(1) due on 05/04/2023 DTaP,Tdap,Td Vaccine(8 - Td or Tdap) due on 10/06/2028 Hepatitis B Vaccine Completed HPV Vaccine Aged Out Data reviewed Urine HCG negative ASSESSMENT/PLAN: 1. Suspected COVID-19 virus infection - ICD9: V01.79, ICD10: Z20.822 (primary diagnosis) Recommend rest, supportive care, and should isolate until: At least 5 days have passed since symptoms first appeared and At least 24 hours have passed since last fever without the use of fever-reducing medications and Symptoms (e.g., cough, shortness of breath) have improved. Should wear mask for at least 5 days after he ends isolation to prevent spread to others. Red flags for re-assessment reviewed with patient in detail. - COVID AND INFLUENZA A/B AND RSV NAAT, ROUTINE - COVID NAAT, UPPER RESPIRATORY, ROUTINE - ROUTINE FLU A/B + RSV 2. Encounter for test, result unknown - ICD9: V72.40, ICD10: Z32.00 Urine testing negative. - HCG QUAL UR B/O Miko Walker MD [facility] 05-22-2023 History of Presen t illness Narrative Chief Complaint Patient presents with: Abdominal Pain Ear Problem Cough Sinus Problem Dizziness Diarrhea: Onset Sunday HPI Mili Loco is a 27 year old female who presents here today for Above Complaints.. Patient complaining of dry cough, SOB, chest congestion, headache, nasal congestion, rhinorrhea, ear fullness, diarrhea, abdominal pain for the last 2 days. Treating with Dayquil and benadryl at home. Symptoms were better today and are worse again today. Denies fever/chills, wheezing, chest pain, sore throat, myalgias, new loss of taste/smell, nausea, vomiting. No recent sick contacts. No known COVID exposure. Has not tested for COVID thus far. LMP 9/3. Does not think she is currently , but is trying to become . Past medical history, appointments, medications, allergies reviewed. Previous Medical History PAST MEDICAL HISTORY Diagnosis Date Irregular menstrual cycle Menarche 2006 age 11 NEGATIVE HISTORY OF 10-21-2011 Normal Color Vision Previous Surgical History PAST SURGICAL HISTORY Procedure Laterality Date LAPAROSCOPY W/RMVL ADNEXAL STRUCTURES Left 12/26/2018 LSO for large atypical appearing cyst Family History FAMILY HISTORY Problem Relation Age of Onset No Known Problems Mother Heart Father Stent - 09/2007 Cervical Cancer Maternal Grandmother Cancer Paternal Grandfather Patient Allergies ALLERGIES Allergen Reactions Ceclor [Cefaclor] Rash Environmental [Othe* Other: See Comments trees (November, December and January) grasses (January and February) weeds (April, May and June) ragweed (April, May and June) Liquid Bandage [Dyc* Rash, Hives dermabond Current Medications Current Outpatient Medications on File Prior to Visit Medication Sig clotrimazole (LOTRIMIN, CLOTRIM) 1 % cream Apply to affected area twice daily. SUMAtriptan (IMITREX) 50 mg tablet Take 1 tablet by mouth at onset of migraine, may take again in 2 hours if necessary. Ibuprofen 200 mg cap 400 mg. acetaminophen (TYLENOL) 325 mg tablet Acetaminophen Acetaminophen [Tylenol Tablet] 650 MG PO EVERY 6 HOURS NEEDED PRN For Pain October 07, 2018 Active 10-07-2018 [facility] ([id number]) No current facility-administered medications on file prior to visit. Social History Social History Tobacco Use Smoking status: Never Smokeless tobacco: Never Vaping Use Vaping Use: Never used Substance Use Topics Alcohol use: No Drug use: No Review of Symptoms REVIEW OF SYSTEMS See HPI EXAM: BP 110/72 Pulse 88 Temp 36.9 C (98.5 F) Resp 16 LMP 05/06/2023 (Exact Date) SpO2 96% General Appearance: ill appearing, in no acute distress Skin: Skin color, texture, turgor normal, no suspicious rashes or lesions. Head: Normocephalic, no masses, lesions, tenderness or abnormalities. Eyes: Anicteric sclera. Pupils are equally round and reactive to light. Extraocular movements are intact. . Ears: External ears normal, canals clear. Nose/Sinuses: Nares normal, septum midline, mucosa normal, no drainage or sinus tenderness. Oropharynx: Lips, mucosa, and tongue normal, teeth and gums normal, oropharynx normal. Neck: Supple, no adenopathy; thyroid symmetric, normal size, no bruits. Lungs: Lungs clear to auscultation. No wheezing, rhonchi, rales.. Heart: RRR without murmur, gallop, or rubs. No ectopy. Abdomen: Normal abdominal exam, Abdomen soft, non-tender. Bowel sounds normal. No masses, organomegaly. Health Maintenance List Covid-19 Vaccine(1) Never done Hepatitis C Screening Never done HIV Screening Never done Pap Testing Never done Depression Assessment Never done Influenza Vaccine(1) due on 05/04/2023 DTaP,Tdap,Td Vaccine(8 - Td or Tdap) due on 10/06/2028 Hepatitis B Vaccine Completed HPV Vaccine Aged Out Data reviewed Urine HCG negative ASSESSMENT/PLAN: 1. Suspected COVID-19 virus infection - ICD9: V01.79, ICD10: Z20.822 (primary diagnosis) Recommend rest, supportive care, and should isolate until: At least 5 days have passed since symptoms first appeared and At least 24 hours have passed since last fever without the use of fever-reducing medications and Symptoms (e.g., cough, shortness of breath) have improved. Should wear mask for at least 5 days after he ends isolation to prevent spread to others. Red flags for re-assessment reviewed with patient in detail. - COVID & INFLUENZA A/B & RSV NAAT, ROUTINE - COVID NAAT, UPPER RESPIRATORY, ROUTINE - ROUTINE FLU A/B + RSV 2. Encounter for test, result unknown - ICD9: V72.40, ICD10: Z32.00 Urine testing negative. - HCG QUAL UR B/O Miko Walker MD documented in this encounter [facility] 08-09-2022 Note HNO ID: [id number] Author: Nicole Velasquez RDMS Service: ? Author Type: Musical String Maker Type: Progress Notes Filed: 08/09/2022 9:10 AM Note Text: Radiology Service Progress Note PATIENT NAME: Mili Loco DATE OF SERVICE: August 09, 2022 TIME: 9:10 AM PATIENT IDENTITY VERIFICATION COMPLETED USING TWO (2) IDENTIFIERS: Name and Date of confirmed by patient verbally. FALL SCREENING: Has the patient had 2 falls in the last year or 1 fall with injury or currently using an Ambulatory Assistive Device (Walker, Cane, Wheelchair, Crutches, etc.)? No PATIENT GENDER DATA: Female. status: : No status: NO. PATIENT RELEVANT IMPLANT DATA REVIEWED: Not Applicable RADIOLOGY DEPARTMENT: Ultrasound PERIPHERAL IV DATA: Not applicable SIGNED BY: Nicole Velasquez RDMS August 09, 2022 9:10 AM [facility] 08-09-2022 History of Presen t illness Narrative Radiology Service Progress Note PATIENT NAME: Mili Loco DATE OF SERVICE: August 09, 2022 TIME: 9:10 AM PATIENT IDENTITY VERIFICATION COMPLETED USING TWO (2) IDENTIFIERS: Name and Date of confirmed by patient verbally. FALL SCREENING: Has the patient had 2 falls in the last year or 1 fall with injury or currently using an Ambulatory Assistive Device (Walker, Cane, Wheelchair, Crutches, etc.)? No PATIENT GENDER DATA: Female. status: : No status: NO. PATIENT RELEVANT IMPLANT DATA REVIEWED: Not Applicable RADIOLOGY DEPARTMENT: Ultrasound PERIPHERAL IV DATA: Not applicable SIGNED BY: Nicole Velasquez RDMS August 09, 2022 9:10 AM documented in this encounter [facility] 07-26-2022 Note HNO ID: [id number] Author: Candie Camargo MD Service: ? Author Type: Physician Type: Progress Notes Filed: 07/26/2022 4:39 PM Note Text: Wastewater Analyst offered: Patient declines. Mili Adamson is a 27 year old female who presents for problem visit for sharp pain across lower abdomen, happens acutely. Lasts a day or so and alternates tylenol and motrin. Last episode happened day before her menses. Resting finallyhelped and next day better but then menstrual cramps. Menses lasting about 5 days. A little vaginal pain occas. w/ intercourse but not anything she is concerned about and not related to this. Using condoms for contraception TEACHING PHYSICIAN NOTE OF PERSONAL INVOLVEMENT IN CARE: I have personally seen and examined the patient and performed the medical decision-making components. I have reviewed the medical student documentation and verified the findings in the note as written. Any additions or changes are noted in bold/italics. 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 History Comments: Sexual Activity: Yes; No partner data on record Contraception: No contraception data on record PAST MEDICAL HISTORY Diagnosis Date Irregular menstrual cycle Menarche 2006 age 11 NEGATIVE HISTORY OF 10-21-2011 Normal Color Vision PAST SURGICAL HISTORY Procedure Laterality Date LAPAROSCOPY W/RMVL ADNEXAL STRUCTURES Left 12/26/2018 LSO for large atypical appearing cyst FAMILY HISTORY Problem Relation Age of Onset No Known Problems Mother Heart Father Stent - 09/2007 Cervical Cancer Maternal Grandmother Cancer Paternal Grandfather Social History Tobacco Use Smoking status: Never Smokeless tobacco: Never Vaping Use Vaping Use: Never used Substance Use Topics Alcohol use: No Drug use: No Current Outpatient Medications Medication Sig clotrimazole (LOTRIMIN, CLOTRIM) 1 % cream Apply to affected area twice daily. SUMAtriptan (IMITREX) 50 mg tablet Take 1 tablet by mouth at onset of migraine, may take again in 2 hours if necessary. Ibuprofen 200 mg cap 400 mg. acetaminophen (TYLENOL) 325 mg tablet Acetaminophen Acetaminophen [Tylenol Tablet] 650 MG PO EVERY 6 HOURS NEEDED PRN For Pain October 07, 2018 Active 10-07-2018 [facility] ([id number]) methylPREDNISolone (MEDROL, JAKOB,) 4 mg Dose-Pack Take as directed (Patient not taking: Reported on 09/15/2020 ) No current facility-administered medications for this visit. Allergies As of Date: 07/26/2022 Allergen Noted Reaction CECLOR [CEFACLOR] 01/14/2009 Rash ENVIRONMENTAL [OTHER] 07/20/2011 Other: See Comments LIQUID BANDAGE [DYCLONINE-BENZETH*01/07/2019 Rash and Hives Fully Assessed 07/26/2022 REVIEW OF SYSTEMS Abdomen: No bloating, early satiety, indigestion, or increased flatulence. No abdominal pain, nausea, vomiting, diarrhea, or constipation. Bladder: No dysuria, gross hematuria, urinary frequency, urinary urgency, or incontinence. Breast: No breast lumps, nipple d/c, overlying skin changes, redness or skin retraction. Expanded ROS: N/A Allergies and current medication updated:Yes EXAM: BP 120/74 Wt 167 lb 4.8 oz (75.9kg) LMP 07/12/2022 GENERAL: pleasant, female in no apparent distress ABDOMEN: soft, non-tender, no hernia, and no masses PELVIC: external genitalia normal, normal Bartholin's glands, urethra, [place]'s glands, no vulvar lesions, no cervical lesions, good vaginal support, physiologic discharge present, normal appearing perineal body and perianal region BIMANUAL: uterus normal size, shape and consistency, no adnexal masses, and non-tender NEURO: alert and oriented x3,exam grossly non-focal EXTREMITIES: normal ASSESSMENT AND PLAN: pelvic pain, acute episode, h/o ovarian cyst d/w her could be spasm, ovarian cyst, endometriosis. Offered trial OCPs, declines. Check pelvic US. Tramadol w/ NSAIDs and tylenol prn. If changes/worsens/fever or gi symptoms notify office. Medical Decision Making: Medical Decision Making Level: 1 - N/A Candie Camargo MD [facility] documented as of this encounter (statuses as of 05/22/2023) [facility]02[facility]2012 History of Past illness Narrative* Problem Noted Date Diagnosed Date Resolved Date Arm edema 10/21/2011 03/29/2015 Shoulder pain 06/30/2009 03/29/2015 documented as of this encounter (statuses as of 05/23/2023) [facility]2012 History of Past illness Narrative* Problem Noted Date Diagnosed Date Resolved Date Arm edema 10/21/2011 03/29/2015 Shoulder pain 06/30/2009 03/29/2015 documented as of this encounter (statuses as of 07/08/2023) [facility] [place] [facility] Diagnosis Suspected COVID-19 virus infection- Primary Encounter for test, result unknown documented in this encounter [facility] note* Diagnosis Acute abdominal pain Abdominal pain, unspecified site documented in this encounter [facility] for referral (narrative)* Diagnostic Procedure Only (Routine) - Closed Specialty Diagnoses / Procedures Referred By Contac t Referred To Contact [facility] Diagnoses Acute abdominal pain Procedures PELVIC US WHI US PELVIC NONOBSTETRIC REAL-TIME IMAGE COMPLETE Candie Camargo MD [address] [place] [address] [facility] [address] [place] [address] Referral ID Status Reason Start Date Expiration Date V isits Requested Visits Authorized [id number] Closed Auto-Generate d Referral 07/26/2022 07/26/2023 1 1 * Diagnostic Procedure Only (Routine) - Closed Specialty Diagnoses / Procedures Referred By Contac t Referred To Contact [facility] Diagnoses Acute abdominal pain Procedures US FEMALE PELVIS TRANSVAG US TRANSVAGINAL Candie Camargo MD [address] [place] [address] [place] [id number] Referral ID Status Reason Start Date Expiration Date V isits Requested Visits Authorized [id number] Closed Auto-Generate d Referral 07/26/2022 08/25/2023 1 1 [facility] Summary Purpose Family History No Family History Records FoundNo Family History Records Found Advance Directives No Advanced Directives Records FoundNo Advanced Directives Records Found Health Concerns Infection Onset Date Last Indicated Resolved Time COVID-19 Confirmed 05/22/2023 05/22/2023 Additional Source Comments INFORMATION SOURCE (unrecogn ized section and content) DATE CREATED AUTHOR AUTHOR'S ORGANIZ ATION 07/06/2023 [facility] Source Comments (unrecognize d section and content) In the event this informatio n is protected by the Federal Confidentiality of Alcohol and Drug Abuse Patient Records regulations: The Federal rules restrict any use of the information to criminally investigate or prosecute any alcohol or drug abuse patient.[facility] the event this information is protected by the Federal Confidentiality of Alcohol and Drug Abuse Patient Records regulations: The Federal rules restrict any use of the information to criminally investigate or prosecute any alcohol or drug abuse patient.[facility] the event this information is protected by the Federal Confidentiality of Alcohol and Drug Abuse Patient Records regulations: The Federal rules restrict any use of the information to criminally investigate or prosecute any alcohol or drug abuse patient.[facility] Reason for Visit (unrecogniz ed section and content) Specialty Diagnoses / Procedures Referred By Contac t Referred To Contact Family Medicine / FAMILY MEDICINE Diagnoses Sinus infection sinus infection Procedures OFFICE/OUTPATIENT ESTABLISHED MOD MDM 30-39 MIN 4C EST Miko Walker MD [address] [place] [address] Miko Walker MD [address] [place] [address] Referral ID Status Reason Start Date Expiration Date Visits Re quested Visits Authorized [id number] Closed 05/22/2023 09/02/2023 1 1 Reason Comments Results Reason Comments Radiology US Specialty Diagnoses / Procedures Referred By Rosales payan Referred To Contact [facility] Diagnoses Acute abdominal pain Procedures US FEMALE PELVIS TRANSVAG US TRANSVAGINAL Candie Camargo MD [address] [place] [address] [place] [id number] Referral ID Status Reason Start Date Expiration Date V isits Requested Visits Authorized [id number] Closed Auto-Generate d Referral 07/26/2022 08/25/2023 1 1 Care Teams (unrecognized sec tion and content) Director Of Cardiopulmonary Services Relationship Specialty Start Date End Date Sumaya Kaye APRN.[employer] INST[employer]ER [address], [place] [id number] PCP - General Family Medicine 08/31/20 Director Of Cardiopulmonary Services Relationship Specialty Start Date End Date Sumaya Kaye, INTERNAL COMBUSTION ENGINE INSPECTOR.[employer] INSTALLER [address], [place] [id number] PCP - General Family Medicine 08/31/20 FOR RECORDS PERTAINING TO PATIENTS WHO ARE OR HAVE BEEN ENROLLED IN A CHEMICAL DEPENDENCY/SUBSTANCEABUSE PROGRAM, SOME INFORMATION MAY BE OMITTED. This clinical summary was aggregated from multiple sources. Caution should be exercised in using it in the provision of clinical care. This summary normalizes information from multiple sources, and as a consequence, information in this document may materially change the coding, format and clinical context of patient data. In addition, data may be omitted in some cases. CLINICAL DECISIONS SHOULD BE BASED ON THE PRIMARY CLINICAL RECORDS. [employer] provides no warranty or guarantee of the accuracy or completeness of information in this document.
[2023-08-30] MEDS: Ketorolac 15 MG/ML Vial IV (20:11)
[2023-08-30] MEDS: 0.9% Normal Saline (500mL Bag) 500 ML 999 ML IV (20:11)
[2023-08-30 20:20] LABS: Bacteria 0 SEEN /hpf (None Seen)
[2023-08-30 20:30] LABS: Glucose, Dipstick Normal (Normal); Ketone-Dipstick 5 mg/dl (Negative); Leukocyte Esterase-Dipstick 100 /ul (Negative); Nitrite-Dipstick Negative (Negative); Occult Blood-Urine 150 /ul (Negative); Protein-Dipstick 15 mg/dl (Negative); Specific Gravity, Urine 1.025 (1.002-1.030); Urine Bilirubin Dipstick Negative (Negative); Urine Urobilinogen Normal (Normal)
[2023-08-30 20:37] LABS: Color, Urine Yellow (Yellow); Urine Clarity Clear (Clear)
[2023-08-30 20:38] LABS: Mucous, Urine 1+ /hpf (<or=2+); Red Blood Cells-Urine 0-5 SEEN /hpf (0-5); Squamous Epithelial Cells - UA 0-5 SEEN /hpf (5-10); Transitional Epithelial - Ur 0 SEEN /hpf (0-5); White Blood Cells 25-50 SEEN /hpf (0-5)
[2023-08-30] MEDS: Smz/Tmp Ds Tablet 1 TABLET PO (21:23)
== END 2023-08-30 21:28 | disposition home or self-care (01) ==
PROVIDERS: Emergency Provider Emergency Medicine; PCP Nurse Practitioner Family; Referring Provider Emergency Medicine; Visit Provider Emergency Medicine
DX: N30.00 Acute cystitis without hematuria (principal); R42 Dizziness and giddiness; R55 Syncope and collapse; R35.0 Frequency of micturition; R39.15 Urgency of urination; R10.2 Pelvic and perineal pain
CPT/HCPCS: 80053; 81001; 84703; 85025; 96361; 96374; 99283; J7040

== ENCOUNTER 2024-06-24 13:20 | Outpatient (CLI) | payer OTHER, BC, SELFPAY ==
[2024-06-24 13:37] VITALS: BP 127/82; PULSE 94; RESP 16; TEMP 36.7
[2024-06-24 13:41] VITALS: BMI 33.3
--- NOTE | 2024-06-24 17:55 | OB.TRI.NOTE ---
HPI - General General Date of Service: 06/24/24 HPI Narrative STAN DAI, is a 28 F who presents with ctxs. Maternal Data Information TIFFANIE Calculator Estimated Delivery Date Method Current WG Current Estimate 06/27/24 Manual 39w 4d PFSH PFS Medical History (Updated 06/24/24 @ 17:[address] Zachariah Mendoza MD) Ovarian cyst Home Medications ?Medication ?Instructions ?Recorded ?Last Taken ?Type sulfamethoxazole 800 1 tab PO BID #6 TABLETS 08/30/23 Unknown Rx mg-trimethoprim 160 mg tablet Allergy/AdvReac Type Severity Reaction Status Date / Time cefaclor (From [facility]) Allergy Intermediate rash, hives Verified 06/24/24 13:39 dyclonine Allergy Intermediate Rash Verified 06/24/24 13:40 Surgical History History of left salpingo-oophorectomy Social History Smoking Status: Never smoker History Elective abortions Hx Para 0 Spontaneous abortions Hx # Term Pregnancies Ectopic pregnancies Hx # Pregnancies Multiple births # of living children NST FHR Rate Baby A Baseline: 135 Variability:: Moderate Accelerations:: 15 x 15 Decelerations:: Variable NST Reactive:: Yes Uterine Activity:: Irregular Assessment & Plan (1) False labor: PLAN: Plan Reactive NST
== END 2024-06-24 16:53 | disposition home or self-care (01) ==
LOC: WPOUT 13:28 → WP 13:29
PROVIDERS: PCP Nurse Practitioner Family; Referring Provider Obstetrics & Gynecology; Visit Provider Obstetrics & Gynecology
DX: O47.9 False labor, unspecified (principal); Z3A.00 Weeks of gestation of pregnancy not specified
CPT/HCPCS: 59025; 59050; 99221; G0378

== ENCOUNTER 2024-06-26 08:10 | Inpatient (IN) | payer OTHER, BC, SELFPAY ==
[2024-06-26] VITALS (70 sets, daily range): BP systolic 104–139; BP diastolic 58–91; PULSE 80–127; RESP 14–22; TEMP 36.1–38.1; O2SAT 98–100; BMI 33.3
--- NOTE | 2024-06-26 | VUL_PTH ---
PATHOLOGY RESULTS PATIENT: STAN DAI LOC: WP U#:[id number] AGE/SX: 28/F ROOM: WP015 RE06/26/[address]: Dr. Taylor Maldonado MD : 1995 BED: 1 DIS: 06/28/2024 SPEC #: [id number] RECD: 06/27/24 00:09 STATUS: DULCE CINDI #: [id number] KENYA: 06/26/24 00:[address]: Taylor Maldonado DEPT: SURGICAL PATHOLOGY RECD BY: Chet Ho ENTERED: 06/27/24 07:52 SP TYPE: VULVA BX OTHR DR: Sumaya Kaye, CAMERON Tissues: Vulva, NOS Procedures: Surgery Specimen Level IV HEADER OPERATION: Vulvar lesion PRE-OP DIAGNOSIS: Vulvar lesion TISSUE SUBMITTED: Vulvar biopsy right labium marjoram MICROSCOPIC DIAGNOSIS Vulvar lesion, excision: Inflamed benign fibroepithelial polyp with acanthosis and hyperkeratosis. 06/30/2024 MICROSCOPIC DESCRIPTION Slides are reviewed. GROSS DESCRIPTION Received is one container labeled with the patient's name and not further designated. The specimen consists of a raisinoid fragment of saunders tissue measuring 1.5 x 1.0 x 0.6cm. The specimen is inked, bisected and totally submitted in one cassette. 06/27/2024 TC:5 CPT:33060
--- OUTSIDE RECORDS SUMMARY | 2024-06-26 06:46 | XMS RPT_ITS | CCD ---
Author Organization [facility] Care Team Providers Care Production Operator Name Role Phone BUCK ERWIN Referring Unavailable Gerardo BATCH OR CONTINUOUS STILL OPERATOR.FLIGHT COMMUNICATIONS SPECIALIST, [facility] Primary Care Provider Gerardo BATCH OR CONTINUOUS STILL OPERATOR.FLIGHT COMMUNICATIONS SPECIALIST, [facility] Primary Care Provider GERARDO, COCO Primary Care Unavailable HAURY, GORAN Referring Unavailable GERARDO, COCO Primary Care Unavailable CANDIE CAMARGO Attending Unavailable GERARDO, COCO Primary Care Unavailable CANDIE CAMARGO Attending Unavailable SELF Referring Unavailable GERARDO, COCO Primary Care Unavailable RAMAN CANDIE L Referring Unavailable GERARDO, COCO Primary Care Unavailable GERARDO, COCO Primary Care Unavailable HAURY, GORAN Referring Unavailable HAURY, GORAN Attending Unavailable GERARDO, COCO Primary Care Unavailable GERARDO, COCO Referring Unavailable RAMAN CANDIE L Attending Unavailable GERARDO, COCO Primary Care Unavailable HAURY, GORAN Referring Unavailable RAMAN CANDIE L Attending Unavailable GERARDO, COCO Primary Care Unavailable SELF Referring Unavailable RAMAN CANDIE L Attending Unavailable GERARDO, COCO Primary Care Unavailable SELF Referring Unavailable RAMAN CANDIE L Referring Unavailable GERARDO, COCO Primary Care Unavailable RAMAN CANDIE L Attending Unavailable GERARDO, COCO Primary Care Unavailable RAMAN CANDIE L Referring Unavailable GERARDO, COCO Primary Care Unavailable GERARDO, COCO Primary Care Unavailable RAMAN CANDIE L Attending Unavailable GERARDO, COCO Primary Care Unavailable RAMAN CANDIE L Referring Unavailable RAMAN CANDIE L Attending Unavailable GERARDO, COCO Primary Care Unavailable SELF Referring Unavailable GERARDO, COCO Referring Unavailable HAURY, GORAN Attending Unavailable GERARDO, COCO Primary Care Unavailable MARILYN CAMARGOECCA L Attending Unavailable GERARDO, COCO Primary Care Unavailable SELF Referring Unavailable RAMAN CANDIE L Attending Unavailable GERARDO, COCO Primary Care Unavailable SELF Referring Unavailable RAMAN CANDIE L Attending Unavailable GERARDO, COCO Primary Care Unavailable SELF Referring Unavailable GERARDO, COCO Referring Unavailable GERARDO, COCO Primary Care Unavailable GERARDO, COCO Referring Unavailable RAMAN CANDIE L Attending Unavailable GERARDO, COCO Primary Care Unavailable RAMAN CANDIE L Attending Unavailable GERARDO, COCO Primary Care Unavailable SELF Referring Unavailable MARILYN CAMARGOECCA L Attending Unavailable GERARDO, COCO Primary Care Unavailable SELF Referring Unavailable Allergies Allergy Classification Reported Allergen(s) Allergy Type Date of Onset Reaction(s) Facility (20 sources) Cefaclor; Translations: [CEFACLOR] Drug Allergy 9 Rash [facility] Repository (2 sources) OTHER; Translations: [OTHER] Propensity to adverse reactions (disorder) 1 [facility] Repository (20 sources) Benzethonium / dyclonine; Translations: [DYCLONINE-BENZET HONIUM] Drug Allergy 9 Rash, Hives [facility] (3 sources) environmental [Other] Propensity to adverse reactions 1 Other: See Comments [facility] Medications Current Medications Medication Drug Class(es) Dates Sig (Normalized) Sig (Original) acetaminophen 325 mg oral tablet (20 sources) Start: 10-07-2018 acetaminophen (TYLENOL) 325 mg tablet Acetaminophen Acetaminophen [Tylenol Tablet] 650 MG PO EVERY 6 HOURS NEEDED PRN For Pain October 07, 2018 Active 10-07-2018 [facility] ([id number]) 10/07/2018 Active Comment on above: Acetaminophen Acetam inophen [Tylenol Tablet] 650 MG PO EVERY 6 HOURS NEEDED PRN For Pain October 07, 2018 Active 10-07-2018 [facility] ([id number]) Breast Pump (7 sources) Start: 04-16-2024 End: 06-17-2024 Breast Pump Use as directed 1 Each 04/16/2024 06/17/2024 Discontinued Start: 04-16-2024 End: 04-16-2025 Breast Pump Use as directed 1 Each 04/16/2024 04/16/2025 Active Start: 04-16-2024 End: 04-16-2025 Breast Pump Use as directed 1 Each 0 04/16/2024 04/16/2025 Active clotrimazole 10 mg/ml topical cream (20 sources) Azole Antifungal Start: 05-11-2022 clotrimazole (LOTRIMIN, CLOTRIM) 1 % cream Apply to affected area twice daily. 60 g 1 05/11/2022 Active Comment on above: Apply to affected ar ea twice daily. ferrous sulfate (8 sources) ferrous sulfate (IRON ORAL) Take by mouth. Active fluocinolone acetonide 0.36686 mg/mg topical ointment (16 sources) Corticosteroid Start: 09-05-2023 End: 06-17-2024 fluocinolone (SYNALAR) 0.025 % ointment Apply to affected area as directed. apply a pea-sized amount tid x 2 weeks, bid x 2 weeks, daily x 2 weeks then every other day x 2 weeks 30 g 1 09/05/2023 06/17/2024 Discontinued Comment on above: Apply to affected ar ea as directed. apply a pea-sized amount tid x 2 weeks, bid x 2 weeks, daily x 2 weeks then every other day x 2 weeks vit 03-zopj-ffcuv-dha (PRENATE MINI, FERR ASP GLYCIN,) 18-1-350 mg cap (19 sources) Start: 09-05-2023 take 1 capsule by mouth once daily vit 02-pfha-parwt-dha (PRENATE MINI, FERR ASP GLYCIN,) 18-1-350 mg cap Take 1 Dose by mouth once daily. 30 capsule 12 09/05/2023 Active Comment on above: Take 1 Dose by mouth once daily. Completed/Discontinued Medications Medication Drug Class(es) Dates Sig (Normalized) Sig (Original) ibuprofen 200 mg oral capsule (5 sources) Nonsteroidal Anti-inflammatory Drug Start: 10-07-2018 End: 11-07-2023 Ibuprofen 200 mg cap 400 mg. 0 10/07/2018 11/07/2023 Discontinued (Course of therapy completed) Comment on above: 400 mg. SUMAtriptan 50 mg oral tablet (5 sources) Serotonin-1b and Serotonin-1d Receptor Agonist Start: 05-14-2020 End: 11-07-2023 take 1 tablet by mouth every two hours SUMAtriptan (IMITREX) 50 mg tablet Indications: Dizziness , Intractable migraine without status migrainosus, unspecified migraine type , Post concussive syndrome Take 1 tablet by mouth at onset of migraine, may take again in 2 hours if necessary. 9 tablet 2 05/14/2020 11/07/2023 Discontinued (Discontinued by Patient) Comment on above: Take 1 tablet by jennifer th at onset of migraine, may take again in 2 hours if necessary. Problems Active Problems Problem Classification Problem Date Documented Date Episodic/Chronic Early or threatened labor (1 source) False labor before 37 completed weeks of gestation; Translations: [False labor before 37 completed weeks of gestation, third trimester] 06-24-2024 Episodic Immunizations and screening for infectious disease (3 sources) Suspected disease caused by 2019-nCoV; Translations: [Suspected COVID-19 virus infection] 05-22-2023 Episodic Menstrual disorders (3 sources) Irregular periods; Translations: [Irregular menstruation, unspecified] Onset: 03-29-2015 03-29-2015 Chronic Other complications of (20 sources) Maternal obesity complicating , childbirth and the puerperium, antepartum; Translations: [Obesity complicating , first trimester] Onset: 11-07-2023 11-07-2023 Chronic Other complications of (16 sources) Anemia in mother complicating , childbirth AND/OR puerperium; Translations: [Anemia complicating , third trimester] Onset: 04-16-2024 04-16-2024 Chronic Other complications of (9 sources) Group B Streptococcus carrier; Translations: [Streptococcus B carrier state complicating ] Onset: 06-03-2024 06-03-2024 Episodic Other female genital disorders (8 sources) Lesion of vulva; Translations: [Other specified noninflammatory disorders of vulva and perineum] Onset: 05-28-2024 05-28-2024 Episodic Other non-traumatic joint disorders (1 source) Pain in left ankle and joints of left foot; Translations: [Pain in left ankle and joints of left foot] Onset: 10-09-2018 Episodic Other upper respiratory disease (20 sources) Seasonal allergy; Translations: [Other seasonal allergic rhinitis] Onset: 10-21-2011 10-21-2011 Chronic Residual codes; unclassified (2 sources) Gestation period, 6 weeks; Translations: [Less than 8 weeks gestation of ] 11-07-2023 Episodic Residual codes; unclassified (1 source) Gestation period, 10 weeks; Translations: [10 weeks gestation of ] 12-06-2023 Episodic Residual codes; unclassified (1 source) Gestation period, 12 weeks; Translations: [12 weeks gestation of ] 12-19-2023 Episodic Residual codes; unclassified (1 source) Gestation period, 15 weeks; Translations: [15 weeks gestation of ] 01-09-2024 Episodic Residual codes; unclassified (2 sources) Gestation period, 19 weeks; Translations: [19 weeks gestation of ] 02-06-2024 Episodic Residual codes; unclassified (1 source) Gestation period, 23 weeks; Translations: [23 weeks gestation of ] 03-05-2024 Episodic Residual codes; unclassified (1 source) Gestation period, 29 weeks; Translations: [29 weeks gestation of ] 04-16-2024 Episodic Residual codes; unclassified (1 source) Gestation period, 31 weeks; Translations: [31 weeks gestation of ] 04-30-2024 Episodic Residual codes; unclassified (1 source) Gestation period, 33 weeks; Translations: [33 weeks gestation of ] 05-14-2024 Episodic Residual codes; unclassified (1 source) Gestation period, 35 weeks; Translations: [35 weeks gestation of ] 05-28-2024 Episodic Residual codes; unclassified (1 source) Gestation period, 36 weeks; Translations: [36 weeks gestation of ] 06-03-2024 Episodic Residual codes; unclassified (1 source) Gestation period, 37 weeks; Translations: [37 weeks gestation of ] 06-10-2024 Episodic Residual codes; unclassified (1 source) Gestation period, 38 weeks; Translations: [38 weeks gestation of ] 06-17-2024 Episodic Residual codes; unclassified (2 sources) Gestation period, 39 weeks; Translations: [39 weeks gestation of ] 06-23-2024 Episodic Residual codes; unclassified (1 source) 23 weeks gestation of ; Translations: [23 weeks gestation of ] Onset: 04-16-2024 Episodic Unclassified (15 sources) [facility] Education - COMMON Onset: 11-06-2023 11-06-2023 Unclassified (15 sources) Education - [place] Onset: 11-06-2023 11-06-2023 Past or Other Problems Problem Classification Problem Date Documented Date Episodic/Chronic Abdominal pain (2 sources) Acute abdominal pain; Translations: [Unspecified abdominal pain] Onset: 09-05-2023 08-09-2022 Episodic Cardiac dysrhythmias (3 sources) Tachycardia; Translations: [Tachycardia, unspecified] Onset: 02-25-2024 02-06-2024 Episodic Contraceptive and procreative management (1 source) Encounter for other general counseling and advice on procreation; Translations: [Encounter for preconception consultation] Onset: 09-05-2023 Episodic Other complications of (17 sources) RhD negative; Translations: [Other specified related conditions, unspecified trimester] Onset: 12-07-2023 12-07-2023 Episodic Other inflammatory condition of skin (1 source) Pruritus vulvae; Translations: [Vulvar pruritus] Onset: 09-05-2023 Episodic Other non-traumatic joint disorders (15 sources) Shoulder pain; Translations: [Pain in unspecified shoulder] Onset: 06-30-2009 Resolved: 03-29-2015 03-29-2015 Episodic Other and delivery including normal (20 sources) First trimester ; Translations: [Encounter for supervision of normal first , first trimester] Onset: 11-07-2023 11-07-2023 Episodic Other screening for suspected conditions (not mental disorders or infectious disease) (4 sources) Patient encounter status; Translations: [Encounter for test, result unknown] Onset: 09-05-2023 05-22-2023 Episodic Other skin disorders (1 source) Disorder of pigmentation, unspecified; Translations: [Hypopigmented skin lesion] Onset: 09-05-2023 Episodic Residual codes; unclassified (15 sources) Edema of the upper extremity ; Translations: [Localized edema] Onset: 10-21-2011 Resolved: 03-29-2015 03-29-2015 Episodic Residual codes; unclassified (1 source) 19 weeks gestation of ; Translations: [19 weeks gestation of ] Onset: 02-06-2024 Episodic Residual codes; unclassified (1 source) 15 weeks gestation of ; Translations: [15 weeks gestation of ] Onset: 02-06-2024 Episodic Residual codes; unclassified (1 source) Less than 8 weeks gestation of ; Translations: [6 weeks gestation of ] Onset: 12-19-2023 Episodic Residual codes; unclassified (1 source) 10 weeks gestation of ; Translations: [10 weeks gestation of ] Onset: 12-06-2023 Episodic Sprains and strains (20 sources) Injury of superior glenoid labrum of shoulder joint; Translations: [Superior glenoid labrum lesion of right shoulder, initial encounter] Onset: 03-13-2017 Resolved: 06-03-2024 03-13-2017 Episodic Results Test Name Value Interpretation Reference Range Facil ity URINE OB DIP B/Oon 4 Glucose Ql (U) Negative Neg mg/dL [facility] Interpretation and review of laboratory results Normal [facility] Protein.monoclonal (U) [Mass/Vol] Negative Neg mg/dL [facility] CNCOon 06-23-2024 CNCO Letter Text Normal [facility] URINE OB DIP B/Oon 4 Glucose Ql (U) Negative Neg mg/dL [facility] Interpretation and review of laboratory results Normal [facility] Protein.monoclonal (U) [Mass/Vol] Negative Neg mg/dL [facility] URINE OB DIP B/Oon 4 Glucose Ql (U) Negative Neg mg/dL [facility] Interpretation and review of laboratory results Normal [facility] Protein.monoclonal (U) [Mass/Vol] Negative Neg mg/dL [facility] ROUTINE, GROUP B ST REP PCRon 05-28-2024 ROUTINE, GROUP B STREP PCR GROUP B STREP PCR: Positive for Group B Streptococcus by PCR. Abnormal [facility] Comment on above: Performed By: #### G BPCR ####[facility] LABCLIA [id number] [place] [address] [place] CBC W Auto Differential pane l (Bld)on 04-16-2024 Basophils (Bld) [#/Vol] 0.07 10*3/uL Normal <0.11 [facility] Comment on above: Order Comment: Speci men Type: BLOOD SPECIMENOrdering Facility: [facility] Address: [address] [place] [address] Performed By: #### 5 7021-8 ####[facility] CONSUELOCROWDERDONGLIA [id number] [place] [address] [place] Basophils/100 WBC (Bld) 0.7 % Normal [facility] Comment on above: Order Comment: Speci men Type: BLOOD SPECIMENOrdering Facility: [facility] Address: [address] [place] [address] Performed By: #### 5 7021-8 ####[facility]ENTERLIA [id number] [place] [address] [place] Differential cell count method Nom (Bld) Auto Normal [facility] Comment on above: Order Comment: Speci men Type: BLOOD SPECIMENOrdering Facility: [facility] Address: [address] [place] [address] Performed By: #### 5 7021-8 ####[facility]ENTERLIA [id number] [place] [address] [place] Eosinophils (Bld) [#/Vol] 0.28 10*3/uL Normal <0.46 [facility] Comment on above: Order Comment: Speci men Type: BLOOD SPECIMENOrdering Facility: [facility] Address: [address] [place] [address] Performed By: #### 5 7021-8 ####[facility]ENTERLIA [id number] [place] [address] [place] Eosinophils/100 WBC (Bld) 2.8 % Normal [facility] Comment on above: Order Comment: Speci men Type: BLOOD SPECIMENOrdering Facility: [facility] Address: [address] [place] [address] Performed By: #### 5 7021-8 ####[facility]ERNCLIA [id number] [place] [address] [place] Erythrocyte distribution width (RBC) [Ratio] 13.5 % Normal 11.5-15.0 [facility] Comment on above: Order Comment: Speci men Type: BLOOD SPECIMENOrdering Facility: [facility] Address: [address] [place] [address] Performed By: #### 5 7021-8 ####[facility]ERNCA [id number] [place] [address] [place] Hematocrit (Bld) [Volume fraction] 30.4 % Low 36.0-46.0 [facility] Comment on above: Order Comment: Speci men Type: BLOOD SPECIMENOrdering Facility: [facility] Address: [address] [place] [address] Performed By: #### 5 7021-8 ####[facility] [id number] [place] [address] [place] Hemoglobin (Bld) [Mass/Vol] 9.4 g/dL Low 11.5-15.5 [facility] Comment on above: Order Comment: Speci men Type: BLOOD SPECIMENOrdering Facility: [facility] Address: [address] [place] [address] Performed By: #### 5 7021-8 ####[facility]ERNCLIA [id number] [place] [address] [place] Immature granulocytes (Bld) [#/Vol] 0.34 10*3/uL High <0.10 [facility] Comment on above: Order Comment: Speci men Type: BLOOD SPECIMENOrdering Facility: [facility] Address: [address] [place] [address] Performed By: #### 5 7021-8 ####[facility]ERNCLIA [id number] [place] [address] [place] Immature granulocytes/100 WBC (Bld) 3.4 % Normal [facility] Comment on above: Order Comment: Speci men Type: BLOOD SPECIMENOrdering Facility: [facility] Address: [address] [place] [address] Performed By: #### 5 7021-8 ####[facility] CONSUELOADRIEL [id number] [place] [address] [place] Lymphocytes (Bld) [#/Vol] 1.33 10*3/uL Normal 1.00-4.00 [facility] Comment on above: Order Comment: Speci men Type: BLOOD SPECIMENOrdering Facility: [facility] Address: [address] [place] [address] Performed By: #### 5 7021-8 ####[facility]ENTERDONGA [id number] [place] [address] [place] Lymphocytes/100 WBC (Bld) 13.3 % Normal [facility] Comment on above: Order Comment: Speci men Type: BLOOD SPECIMENOrdering Facility: [facility] Address: [address] [place] [address] Performed By: #### 5 7021-8 ####[facility] CENTERLAUROA [id number] [place] [address] [place] MCH (RBC) [Entitic mass] 24.8 pg Low 26.0-34.0 [facility] Comment on above: Order Comment: Speci men Type: BLOOD SPECIMENOrdering Facility: [facility] Address: [address] [place] [address] Performed By: #### 5 7021-8 ####[facility] CENTERLIA [id number] [place] [address] [place] MCHC (RBC) [Mass/Vol] 30.9 g/dL Normal 30.5-36.0 [facility] Comment on above: Order Comment: Speci men Type: BLOOD SPECIMENOrdering Facility: [facility] Address: [address] [place] [address] Performed By: #### 5 7021-8 ####[facility]ERNCLIA [id number] [place] [address] [place] MCV (RBC) [Entitic vol] 80.2 fL Normal 80.0-100.0 [facility] Comment on above: Order Comment: Speci men Type: BLOOD SPECIMENOrdering Facility: [facility] Address: [address] [place] [address] Performed By: #### 5 7021-8 ####[facility] CENTERLIA [id number] [place] [address] [place] Monocytes (Bld) [#/Vol] 0.64 10*3/uL Normal <0.87 [facility] Comment on above: Order Comment: Speci men Type: BLOOD SPECIMENOrdering Facility: [facility] Address: [address] [place] [address] Performed By: #### 5 7021-8 ####[facility]A [id number] [place] [address] [place] Monocytes/100 WBC (Bld) 6.4 % Normal [facility] Comment on above: Order Comment: Speci men Type: BLOOD SPECIMENOrdering Facility: [facility] Address: [address] [place] [address] Performed By: #### 5 7021-8 ####[facility]ENTERLIA [id number] [place] [address] [place] Neutrophils (Bld) [#/Vol] 7.35 10*3/uL Normal 1.45-7.50 [facility] Comment on above: Order Comment: Speci men Type: BLOOD SPECIMENOrdering Facility: [facility] Address: [address] [place] [address] Performed By: #### 5 7021-8 ####[facility] [id number] [place] [address] [place] Neutrophils/100 WBC (Bld) 73.4 % Normal [facility] Comment on above: Order Comment: Speci men Type: BLOOD SPECIMENOrdering Facility: [facility] Address: [address] [place] [address] Performed By: #### 5 7021-8 ####[facility] [id number] [place] [address] [place] Nucleated RBC (Bld) [#/Vol] 10*3/uL Normal <0.01 [facility] Comment on above: Order Comment: Speci men Type: BLOOD SPECIMENOrdering Facility: [facility] Address: [address] [place] [address] Performed By: #### 5 7021-8 ####[facility] [id number] [place] [address] [place] Nucleated RBC/100 WBC (Bld) [Ratio] 0.0 /100 WBC Normal [facility] Comment on above: Order Comment: Speci men Type: BLOOD SPECIMENOrdering Facility: [facility] Address: [address] [place] [address] Performed By: #### 5 7021-8 ####[facility] [id number] [place] [address] [place] Platelet mean volume (Bld) [Entitic vol] 10.8 fL Normal 9.0-12.7 [facility] Comment on above: Order Comment: Speci men Type: BLOOD SPECIMENOrdering Facility: [facility] Address: [address] [place] [address] Performed By: #### 5 7021-8 ####[facility] [id number] [place] [address] [place] Platelets (Bld) [#/Vol] 291 10*3/uL Normal 150-400 [facility] Comment on above: Order Comment: Speci men Type: BLOOD SPECIMENOrdering Facility: [facility] Address: [address] [place], [place] [address] Performed By: #### 5 7021-8 ####[facility]ENTERDONGLIOmar [id number] [place] [address] [place] RBC (Bld) [#/Vol] 3.79 10*6/uL Low 3.90-5.20 [facility] Comment on above: Order Comment: Speci men Type: BLOOD SPECIMENOrdering Facility: [facility] Address: [address] [place], [place] [address] Performed By: #### 5 7021-8 ####[facility]ERNCLI [id number] [place] [address] [place] WBC (Bld) [#/Vol] 10.01 10*3/uL Normal 3.70-11.00 [facility] Comment on above: Order Comment: Speci men Type: BLOOD SPECIMENOrdering Facility: [facility] Address: [address] [place], [place] [address] Performed By: #### 5 7021-8 ####[facility]A [id number] [place] [address] [place] CNCOon 04-16-2024 CNCO Letter Text Normal [facility] GESTATIONAL GLUCOSE SCREEN, 1-HOUR, 50 GRAM, NON-FASTINGon 04-16-2024 Glucose [Mass/Vol] 121 mg/dL Normal 74-134 [facility] Comment on above: Order Comment: Speci men Type: BLOOD SPECIMENOrdering Facility: [facility] Address: [address] [place] [address] Result Comment: [facility] Congress of Obstetricians and Gynecologists (Aryan/Asa) guidelines state a gestational diabetes mellitus positive screen is made, in women not previously diagnosed with overt diabetes, when the 1 hr plasma glucose level is equal to or above 140 mg/dL. [facility] [employer] [facility] [place] recommends a 135 mg/dL cutoff. Performed By: #### G LTGST ####[facility] [id number] [place] [id number] [place] Reagin and Treponema pallidu m IgG and IgM [Interp]on 04-16-2024 T. pallidum IgG+IgM IA Ql (S) Non-Reactive Normal Nonreactive [facility] Comment on above: Order Comment: Speci men Type: BLOOD SPECIMENOrdering Facility: [facility] Address: [address] [place] [address] Performed By: #### 7 3752-8 ####[facility] LABCLIA [id number] [place] [address] [place] Reagin+T pallidum IgG+IgM Se rPl-Impon 04-16-2024 Reagin and Treponema pallidum IgG and IgM [Interp] Cannot exclude recent Treponemal infection if specimen collected within 7-10 days after appearance of suspect lesions or 2-3 weeks after an exposure. Clinical correlation is required. Normal [facility] Comment on above: Order Comment: Speci men Type: BLOOD SPECIMENOrdering Facility: [facility] Address: [address] [place] [address] Performed By: #### 7 3752-8 ####[facility] LABIA [id number] [place] [address] [place] TYPE + SCREEN PRENATALon ABO O Normal [facility] Comment on above: Order Comment: Speci men Type: BLOOD SPECIMENOrdering Facility: [facility] Address: [address] [place] [address] Performed By: #### T SPN ####[facility] BLOOD BANKIA [id number] [place] [address] [place] HISTORICAL AB SCR STATUS Negative Normal [facility] Comment on above: Order Comment: Speci men Type: BLOOD SPECIMENOrdering Facility: [facility] Address: [address] [place] [address] Performed By: #### T SPN ####CC [facility] BLOOD BANKCLIA [id number] [place] [address] [place] Rh Nom (Bld) Negative Normal [facility] Comment on above: Order Comment: Speci men Type: BLOOD SPECIMENOrdering Facility: [facility] Address: [address] [place] [address] Performed By: #### T SPN ####CC MA[facility] BLOOD BANKCLIA [id number] [address] [place] TYPE AND SCREEN EXPIRATION 04/19/2024 23:59 Normal [facility] Comment on above: Order Comment: Speci men Type: BLOOD SPECIMENOrdering Facility: [facility] Address: [address] [place] [address] Performed By: #### T SPN ####CC MAIN BLOOD BANKCLIA [id number] [address] [place] CNNURSEon 02-25-2024 [facility] ([facility] STAN DAI ([id number]) 1995 F Date Time Provider Department 02/25/24 3:45 PM [place] NURSE FAMPWS During your visit today, we recorded the following information about you: Payam Falcon LPN 02/25/2024 4:21 PM Signed EKG completed and reviewed by Referring Provider: CANDIE CAMARGO [[id number]] Allergies As of Date: 02/25/2024 Noted Allergy Reaction CECLOR (CEFACLOR) 01/14/2009 2 - Rash LIQUID BANDAGE (DYCLONINE-BENZETH*0 01/07/2019 2 - Rash 4 - Hives Comments: dermabond Date Reviewed: 02/06/2024 Reviewed by: Candie Camargo MD - Fully Assessed Reason for Visit: Nurse Visit [792] Cmt: EKG per OB Dr.Rebecca Raman Harmon Visit Diagnoses:Encounter for supervision of normal first in second trimester [Z34.02] Tachycardia [R00.0] Order(s):ECG COMPLETE [ECG01] Order #: [id number] Prescriptions as of 02/25/2024 - fluocinolone (SYNALAR) 0.025 % ointment Apply to affected area as directed. apply a pea-sized amount tid x 2 weeks, bid x 2 weeks, daily x 2 weeks then every other day x 2 weeks - vit 08-ndhc-ovfqo-dha (PRENATE MINI, FERR ASP GLYCIN,) 18-1-350 mg cap Take 1 Dose by mouth once daily. - clotrimazole (LOTRIMIN, CLOTRIM) 1 % cream Apply to affected area twice daily. - acetaminophen (TYLENOL) 325 mg tablet Acetaminophen Acetaminophen [Tylenol Tablet] 650 MG PO EVERY 6 HOURS NEEDED PRN For Pain October 07, 2018 Active 10-07-2018 [facility] ([id number]) Meds Comments as of 04/15/2014: Problem List As Of Date 02/25/2024 Noted Resolved Shoulder pain [M25.519] 06/30/2009 03/29/2015 Seasonal allergies [J30.2] 10/21/2011 Arm edema [R60.0] 10/21/2011 03/29/2015 Superior glenoid labrum lesion of right shoulde*03/13/2017 Obesity affecting in first trimester *11/07/2023 Encounter for care in first trimester *11/07/2023 Rh negative state in antepartum period [O26.899*12/07/2023 Encounter Status:Closed by PAYAM FALCON LPN on 02/25/24 Normal [facility] ECG COMPLETEon 02-25-2024 ECG COMPLETE Ventricular Rate : 101 BPM Atrial Rate : 101 BPM P-R Interval : 124 ms QRS Duration : 74 ms Q-T Interval : 342 ms QTC Calculation(Bazett) : 443 ms Calculated P [place] : 52 degrees Calculated R [place] : 61 degrees Calculated T [place] : 38 degrees SINUS TACHYCARDIA OTHERWISE NORMAL ECG Confirmed by MD IZAGUIRRE GREGORY () on 02/26/2024 1:06:19 PM NAME : STAN DAI PID : [id number] : 1995 Gender : Female Race : ORD : [id number] Procedure Date : Feb 25 2024 16:13:30 Edit Date : Feb 26 2024 13:06:23 Diagnosis: SINUS TACHYCARDIA OTHERWISE NORMAL ECG Confirmed by MD IZAGUIRRE GREGORY () on 02/26/2024 1:06:19 PM Test Reason : Location : 185 : [facility] Overread By : MD IZAGUIRRE GREGORY Edited By : MD IZAGUIRRE GREGORY Referred By : CANDIE CAMARGO Acquired by : Pasquale SALINAS [facility] ALPHA FETOPRO MATERNALon AFP, MATERNAL 0.66 MoM Normal [facility] Comment on above: Order Comment: Speci men Type: BLOOD SPECIMENOrdering Facility: [facility] Address: [address] [place] [address] Result Comment: 34.2 3 ng/mL Performed By: #### A FPMAT ####[facility] LABCLIA [id number] [address] [place] DATE OF COLLECTION #1 02/06/24 Normal [facility] Comment on above: Order Comment: Speci men Type: BLOOD SPECIMENOrdering Facility: [facility] Address: [address] [place] [address] Performed By: #### A FPMAT ####[facility] LABCLIA [id number] [place] [address] [place] DATE RECEIVED 02/07/24 Normal [facility] Comment on above: Order Comment: Speci men Type: BLOOD SPECIMENOrdering Facility: [facility] Address: [address] [place] [address] Performed By: #### A FPMAT ####[facility] LABCLIA [id number] [place] [address] [place] TIFFANIE 06/27/24 Normal [facility] Comment on above: Order Comment: Speci men Type: BLOOD SPECIMENOrdering Facility: [facility] Address: [address] [place] [address] Performed By: #### A FPMAT ####[facility] LABCLIA [id number] [place] [id number] [place] GESTATION AT DATE OF SAMPLE 19 weeks 5 days (by dates) Normal [facility] Comment on above: Order Comment: Speci men Type: BLOOD SPECIMENOrdering Facility: [facility] Address: [address] [place] [address] Performed By: #### A FPMAT ####[facility] LABCLIA [id number] [place] [address] [place] INSULIN DEPENDENT DIABETES None Normal [facility] Comment on above: Order Comment: Speci men Type: BLOOD SPECIMENOrdering Facility: [facility] Address: [address] [place] [address] Performed By: #### A FPMAT ####[facility] LABCLIA [id number] [place] [address] [place] IVF No Normal [facility] Comment on above: Order Comment: Speci men Type: BLOOD SPECIMENOrdering Facility: [facility] Address: [address] [place] [address] Performed By: #### A FPMAT ####[facility] LABCLIA [id number] [place] [address] [place] LMP 09/21/23 Normal [facility] Comment on above: Order Comment: Speci men Type: BLOOD SPECIMENOrdering Facility: [facility] Address: [address] [place] [address] Performed By: #### A FPMAT ####[facility] LABCLIA [id number] [place] [address] [place] MATERNAL AFP COMMENT See comments below Normal [facility] Comment on above: Order Comment: Erica wang Type: BLOOD SPECIMENOrdering Facility: [facility] Address: [address] [place] [address] Result Comment: INTE RPRETATION Screening result : Screen negative Risk of NTD : 1 in 7,000 Comment : The interpretation is for NTD only A screen negative result does not exclude the possibility of a neural tube defect, because screening does not detect all affected pregnancies Performed By: #### A FPMAT ####[facility] LABCLIA [id number] [place] [address] [place] MATERNAL AGE AT TIFFANIE 28 years Normal [facility] Comment on above: Order Comment: Erica wang Type: BLOOD SPECIMENOrdering Facility: [facility] Address: [address] [place] [address] Performed By: #### A FPMAT ####[facility] LABCLIA [id number] [place] [address] [place] PATIENT'S WEIGHT DAY OF COLLECTION 179 lb. Normal [facility] Comment on above: Order Comment: Erica wang Type: BLOOD SPECIMENOrdering Facility: [facility] Address: [address] [place] [address] Performed By: #### A FPMAT ####[facility] LABCLIA [id number] [place] [address] [place] INTERP-MATERNAL AFP Negative Normal Screen Negative [facility] Comment on above: Order Comment: Erica wang Type: BLOOD SPECIMENOrdering Facility: [facility] Address: [address] [place] [address] Performed By: #### A FPMAT ####[facility] LABCLIA [id number] [address] [place] PREVIOUS NTD None Normal [facility] Comment on above: Order Comment: Speci men Type: BLOOD SPECIMENOrdering Facility: [facility] Address: [address] [place] [address] Performed By: #### A FPMAT ####[facility] LABCLIA [id number] [place] [address] [place] RISK OF NTD ;1:7000 Normal [facility] Comment on above: Order Comment: Speci men Type: BLOOD SPECIMENOrdering Facility: [facility] Address: [address] [place] [address] Performed By: #### A FPMAT ####[facility] LABCLIA [id number] [address] [place] SAMPLE #1 [id number] Normal [facility] Comment on above: Order Comment: Speci men Type: BLOOD SPECIMENOrdering Facility: [facility] Address: [address] [place] [address] Performed By: #### A FPMAT ####[facility] LABCLIA [id number] [address] [place] STAFF REVIEW (MATERNAL SCREENS) Reviewed by Albaro Frias MD, Ph.D ([id number]) Normal [facility] Comment on above: Order Comment: Speci men Type: BLOOD SPECIMENOrdering Facility: [facility] Address: [address] [place] [address] Performed By: #### A FPMAT ####[facility] LABCLIA [id number] [place] [address] [place] Examination level ultrasound on 02-06-2024 Indication anatomy survey Obesity, BMI >30 Impression REMOTE READ 1. Single, live, intrauterine . 2. biometry is consistent with the established gestational age. 3. Unremarkable anatomic survey. No markers for aneuploidy are noted. 4. Amniotic fluid normal amount. 5. The placenta is posterior, fundal. 6. Normal transabdominal cervical length without evidence of funneling or dynamic changes. Recommendations Follow up as clinically indicated. Maternal Assessment Height 165 cm Height (ft) 5 ft Height (in) 5 in Physical Exam Initial weight (lb) 181 lb Initial BMI 30.12 kg/m Maternal assessment other: 1 Para 0 Method Transabdominal ultrasound examination. View: Adequate visualization Coy . Number of fetuses: 1 Dating LMP on: 09/21/2023 GA by LMP 19 w + 5 d TIFFANIE by LMP: 06/27/2024 GA by prior assessment 19 w + 5 d TIFFANIE by prior assessment: 06/27/2024 Ultrasound examination on: 02/06/2024 GA by U/S based upon: AC, BPD, Femur, HC GA by U/S 19 w + 5 d TIFFANIE by U/S: 06/27/2024 Assigned: based on the LMP, selected on 12/19/2023 Assigned GA 19 w + 5 d Assigned TIFFANIE: 06/27/2024 General Evaluation Cardiac activity present. FHR 159 bpm. movements: present. Presentation: transverse head right Placenta: Placental site: posterior, fundal Umbilical cord: normal insertion, 3 vessel cord Amniotic fluid: Amount of AF: normal amount. MVP 7.1 cm Growth Overview Exam date GA BPD (mm) HC (mm) AC (mm) FL (mm) HL (mm) EFW (g) 02/06/2024 19w 5d 43.7 29% 165.3 34% 151.6 67% 31.1 62% 32.6 90% 320 55% Biometry Standard BPD 43.7 mm 19w 2d 29% Hadlock OFD 58.8 mm 19w 1d 46% Nicolaides HC 165.3 mm 19w 1d 34% Alicia Cerebellum tr 19.9 mm 19w 1d 47% Hill Nuchal fold 3.1 mm AC 151.6 mm 20w 3d 67% Hadlock Femur 31.1 mm 19w 6d 62% Alicia Humerus 32.6 mm 21w 0d 90% Alicia EFW 320 g 19w 6d 55% Hadlock EFW (lb) 0 lb EFW (oz) 11 oz EFW by: Hadlock (HC-AC-FL) Extended Fusion Juncture Grinder 6.4 mm CM 3.2 mm 6% Nicolaides Extremities / Bony Struc FL / HC 0.19 71% Hadlock Other Structures FHR 159 bpm Anatomy Cranium: normal Lateral ventricles: normal Choroid plexus: normal Midline falx: normal Cavum septi pellucidi: normal Cerebellum: normal Cisterna magna: normal Head / Neck Vermis: normal Neck: normal Nuchal fold: normal Lips: normal Profile: normal Nose: normal Face Maxilla: normal Mandible: normal Orbits: normal Lens: normal 4-chamber view: normal RVOT view: normal LVOT view: normal 3-vessel view: normal 1-ozjlwy-dggfqrl view: normal Heart / Thorax Situs: situs solitus (normal) Aortic arch view: normal Ductal arch view: normal SVC: normal IVC: normal Cardiac axis: normal Rt lung: normal Lt lung: normal Diaphragm: normal Cord insertion: normal Stomach: normal Kidneys: normal Bladder: normal Genitals: normal Abdomen Abdom. wall: normal Cervical spine: normal Thoracic spine: normal Lumbar spine: normal Sacral spine: normal Arms: normal Legs: normal Rt upper arm: normal Rt forearm: normal Rt hand: normal Rt fingers: normal Lt upper arm: normal Lt forearm: normal Lt hand: normal Lt fingers: normal Rt upper leg: normal Rt lower leg: normal Rt foot: normal Lt upper leg: normal Lt lower leg: normal Lt foot: normal Gender: Unspecified Wants to know sex: no Maternal Structures Uterus / Cervix Uterus: Visualized Cervix: Visualized Approach: Transabdominal Cervical length 37.5 mm Ovaries / Tubes / Adnexa Rt ovary: Not visualized Lt ovary: Not visualized Performed By: Shavon Garay RDMS, RVT Read By: Rosa Nettles M.D. MATERNAL MEDICINE [facility] Radiology Study observation (narrative) [facility] nuchal translucency me asured by USon 12-19-2023 [facility] CARRIER SCREEN, STANDARDon 0 12-06-2023 CARRIER SCREEN RESULTS View results in Scanned Documents link when available. Normal [facility] Comment on above: Order Comment: Speci men Type: BLOOD SPECIMENOrdering Facility: [facility] Address: [address] [place] [address] Performed By: #### C RRSCN ####MYRIADCLIA [id number] [place] [address] CBC panel Auto (Bld)on 12-05 Erythrocyte distribution width (RBC) [Ratio] 14.5 % Normal 11.5-15.0 [facility] Comment on above: Order Comment: Speci men Type: BLOOD SPECIMENOrdering Facility: [facility] Address: [address] [place] [address] Performed By: #### 5 8410-2 ####[facility] [id number] [address] [place] Hematocrit (Bld) [Volume fraction] 36.2 % Normal 36.0-46.0 [facility] Comment on above: Order Comment: Speci men Type: BLOOD SPECIMENOrdering Facility: [facility] Address: [address] [place] [address] Performed By: #### 5 8410-2 ####[facility] [id number] [address] [place] Hemoglobin (Bld) [Mass/Vol] 11.8 g/dL Normal 11.5-15.5 [facility] Comment on above: Order Comment: Speci men Type: BLOOD SPECIMENOrdering Facility: [facility] Address: [address] [place] [address] Performed By: #### 5 8410-2 ####[facility] [id number] [place] [address] [place] MCH (RBC) [Entitic mass] 26.3 pg Normal 26.0-34.0 [facility] Comment on above: Order Comment: Speci men Type: BLOOD SPECIMENOrdering Facility: [facility] Address: [address] [place] [address] Performed By: #### 5 8410-2 ####[facility]ENTERDONGLIOmar [id number] [place] [address] [place] MCHC (RBC) [Mass/Vol] 32.6 g/dL Normal 30.5-36.0 [facility] Comment on above: Order Comment: Speci men Type: BLOOD SPECIMENOrdering Facility: [facility] Address: [address] [place] [address] Performed By: #### 5 8410-2 ####[facility] [id number] [place] [address] [place] MCV (RBC) [Entitic vol] 80.6 fL Normal 80.0-100.0 [facility] Comment on above: Order Comment: Speci men Type: BLOOD SPECIMENOrdering Facility: [facility] Address: [address] [place] [address] Performed By: #### 5 8410-2 ####[facility] [id number] [place] [address] [place] Nucleated RBC (Bld) [#/Vol] 10*3/uL Normal <0.01 [facility] Comment on above: Order Comment: Speci men Type: BLOOD SPECIMENOrdering Facility: [facility] Address: [address] [place] [address] Performed By: #### 5 8410-2 ####[facility] [id number] [place] [address] [place] Platelet mean volume (Bld) [Entitic vol] 11.0 fL Normal 9.0-12.7 [facility] Comment on above: Order Comment: Speci men Type: BLOOD SPECIMENOrdering Facility: [facility] Address: [address] [place] [address] Performed By: #### 5 8410-2 ####[facility] [id number] [place] [address] [place] Platelets (Bld) [#/Vol] 282 10*3/uL Normal 150-400 [facility] Comment on above: Order Comment: Speci men Type: BLOOD SPECIMENOrdering Facility: [facility] Address: [address] [place] [address] Performed By: #### 5 8410-2 ####[facility]ENTERNCA [id number] [place] [address] [place] RBC (Bld) [#/Vol] 4.49 10*6/uL Normal 3.90-5.20 [facility] Comment on above: Order Comment: Speci men Type: BLOOD SPECIMENOrdering Facility: [facility] Address: [address] [place] [address] Performed By: #### 5 8410-2 ####[facility] [id number] [place] [address] [place] WBC (Bld) [#/Vol] 7.78 10*3/uL Normal 3.70-11.00 [facility] Comment on above: Order Comment: Speci men Type: BLOOD SPECIMENOrdering Facility: [facility] Address: [address] [place] [address] Performed By: #### 5 8410-2 ####[facility] [id number] [place] [address] [place] HBV surface Ag Ser Qlon HBV surface Ag Ql (S) Negative Normal Negative [facility] Comment on above: Order Comment: Speci men Type: BLOOD SPECIMENOrdering Facility: [facility] Address: [address] [place] [address] Performed By: #### 7 3752-8, 33921-1, 5195-3 ####[facility] LABCLIA [id number] [place] [address] [place] HCV Ab Ser Qlon 12-06-2023 HCV Ab Ql (S) Negative Normal Negative [facility] Comment on above: Order Comment: Speci men Type: BLOOD SPECIMENOrdering Facility: [facility] Address: [address] [place] [address] Result Comment: The result suggests no evidence of active infection with Hepatitis C virus. Should recent infection be suspected, repeat testing may be considered 4-6 weeks after this draw. Performed By: #### 1 6128-1 ####[facility] LABCLIA [id number] [place] [address] [place] HIV 1+2 Ab IA Qlon 4 HIV 1 and 2 Ab IA.rapid Nom (S/P/Bld) Normal [facility] Comment on above: Order Comment: Speci men Type: BLOOD SPECIMENOrdering Facility: [facility] Address: [address] [place] [address] Result Comment: Test not indicated. Performed By: #### 7 3752-8, 28067-0, 5195-3 ####[facility] LABCLIA [id number] [place] [address] [place] HIV 1+2 Ab+HIV1 p24 Ag IA Ql Non-Reactive Normal Nonreactive [facility] Comment on above: Order Comment: Speci men Type: BLOOD SPECIMENOrdering Facility: [facility] Address: [address] [place] [address] Performed By: #### 7 3752-8, 11634-7, 5195-3 ####[facility]ITAL[facility] [id number] [place] [address] [place] HIV immunoassay testing algorithm interpretation (S/P/Bld) [Interp] Normal [facility] Comment on above: Order Comment: Speci men Type: BLOOD SPECIMENOrdering Facility: [facility] Address: [address] [place] [address] Result Comment: No e vidence of HIV-1 or HIV-2 infection. Should recent infection be suspected, repeat testing may be considered 2-3 weeks after this draw. [place] Rev. Code 3701.243(E): This information has been disclosed to you from confidential records protected from disclosure by state law. ???You shall make no further disclosure of this information without the specific, written, and informed release of the individual to whom it pertains or as otherwise permitted by state law. A general authorization for the release of medical or other information is not sufficient for the purpose of the release of HIV test results or diagnoses. Performed By: #### 7 3752-8, 60781-9, 5195-3 ####[facility] LABCLIA [id number] [address] [place] HbA1c (Bld)on 12-06-2023 Average glucose Estimated from glycated hemoglobin (Bld) [Mass/Vol] 94 mg/dL Normal [facility] Comment on above: Order Comment: Speci men Type: BLOOD SPECIMENOrdering Facility: [facility] Address: [address] [place] [address] Result Comment: eAG: (Estimated average glucose) is a calculated value from HgbA1c and is medical sales representative of the average blood glucose level in the last 2-3 month period. Performed By: #### 5 5454-3 ####[facility] LABIA [id number] [address] [place] HbA1c (Bld) [Mass fraction] 4.9 % Normal 4.3-5.6 [facility] Comment on above: Order Comment: Inocencioi men Type: BLOOD SPECIMENOrdering Facility: [facility] Address: [address] [place] [address] Result Comment: [place] Diabetes Association guidelines indicate that patients with HgbA1c in the range 5.7-6.4% are at increased risk for development of diabetes, and intervention by lifestyle modification may be beneficial. HgbA1c greater or equal to 6.5% is considered diagnostic of diabetes. Performed By: #### 5 5454-3 ####[facility] LABIA [id number] [place] [address] [place] [id number] PLUSon 12-06-2023 Cell-free DNA./Cell-free DNA.total Dosage of chromosome-specific cfDNA (cfDNA) [Molar fraction] 7% Normal [facility] Comment on above: Order Comment: Speci men Type: BLOOD SPECIMENOrdering Facility: [facility] Address: [address] [place] [address] Performed By: #### M AT21 ####[facility] LABCLIA [id number] [place] [address] Chr 13+18+21+X+Y aneuploidy Dosage of chromosome-specific cfDNA Ql (cfDNA) Negative Normal [facility] Comment on above: Order Comment: Speci men Type: BLOOD SPECIMENOrdering Facility: [facility] Address: [address] [place] [address] Performed By: #### M AT21 ####[facility] LABCLIA [id number] [place] [address] Chr 21 trisomy Dosage of chromosome-specific cfDNA Ql (cfDNA) Negative Normal [facility] Comment on above: Order Comment: Speci men Type: BLOOD SPECIMENOrdering Facility: [facility] Address: [address] [place] [address] Performed By: #### M AT21 ####[facility] LABCLIA [id number] [place] [address] Chr X and Y aneuploidy risk Sequencing Ql (cfDNA) [Interp] Not detected Normal [facility] Comment on above: Order Comment: Speci men Type: BLOOD SPECIMENOrdering Facility: [facility] Address: [address] [place] [address] Result Comment: Not Detected Not Detected Performed By: #### M AT21 ####[facility] LABCLIA [id number] [place] [address] Citation Thai (Reference lab test) Comment [facility] Comment on above: Order Comment: Speci men Type: BLOOD SPECIMENOrdering Facility: [facility] Address: [address] [place] [address] Result Comment: 1. P josue CANCINO et al. Terrie Med. 2012;14(3):296-305. 2. Ari YOU et al. Prenat Diag. 2013;33(6):591-597. 3. Vidal C, et al. Clin Chem. 2015 Apr;61(4):608-616. 4. Gnia CANCINO et al. Terrie Med. 2011;13(11):913-920. 5. ACOG/SMFM Practice Bulletin No. 226, Jun 2020. Performed By: #### M AT21 ####[facility] LABCLIA [id number] [place] [address] Gestational age Estimated from conception date Coy Normal [facility] Comment on above: Order Comment: Inocencioi kathleen Type: BLOOD SPECIMENOrdering Facility: [facility] Address: [address] [place] [address] Performed By: #### M AT21 ####[facility] LABCLIA [id number] [place] [address] GESTATIONALAGE AGE > OR = 9W Yes Normal [facility] Comment on above: Order Comment: Erica wang Type: BLOOD SPECIMENOrdering Facility: [facility] Address: [address] [place] [address] Performed By: #### M AT21 ####[facility] LABCLIA [id number] [place] [address] Laboratory comment Thai (Report) Comment [facility] Comment on above: Order Comment: Erica wang Type: BLOOD SPECIMENOrdering Facility: [facility] Address: [address] [place] [address] Result Comment: The MaterniT(R) 21 PLUS laboratory-developed test (LDT) analyzes circulating cell-free DNA from a maternal blood sample. This test is used for screening purposes and not diagnostic. Clinical correlation is recommended. Validation data on twin pregnancies is limited and the ability of this test to detect aneuploidy in higher multiple gestations has not yet been validated. Performed By: #### M AT21 ####[facility] LABCLIA [id number] [place] [address] director of vital statistics name Nom (Provider) Comment [facility] Comment on above: Order Comment: Erica wang Type: BLOOD SPECIMENOrdering Facility: [facility] Address: [address] [place] [address] Result Comment: This specimen showed an expected representation of chromosome 21, 18 and 13 material. Clinical correlation is suggested. Comment aNs Lawrence MD, PhD, Director, De Correspondent Performed By: #### M AT21 ####[facility] LABCLIA [id number] [place] [address] LIMITATIONS OF THE TEST Comment [facility] Comment on above: Order Comment: Speci men Type: BLOOD SPECIMENOrdering Facility: [facility] Address: [facility] [place] [address] Result Comment: Mague see the results of these tests are highly reliable, discordant results, including inaccurate sex prediction, may occur due to placental, maternal, or mosaicism or neoplasm; vanishing twin; prior maternal organ transplant; or other causes. These tests are screening tests and not diagnostic; they do not replace the accuracy and precision of diagnosis with CVS or amniocentesis. A patient with a positive test result should be referred for genetic counseling and offered invasive diagnosis for confirmation of test results.[5] The results of this testing, including the benefits and limitations, should be discussed with a qualified healthcare provider. management decisions, including termination of the , should not be based on the results of these tests alone. The healthcare provider is responsible for the use of this information in the management of their patient. Sex chromosomal aneuploidies are not reportable for known multiple gestations. A negative result does not ensure an unaffected nor does it exclude the possibility of other chromosomal abnormalities or defects which are not a part of these tests. An uninformative result may be reported, the causes of which may include, but are not limited to, insufficient sequencing coverage, noise or artifacts in the region, amplification or sequencing bias, or insufficient fraction. These tests are not intended to identify pregnancies at risk for neural tube defects or ventral wall defects. Testing for whole chromosome abnormalities (including sex chromosomes) and for subchromosomal abnormalities could lead to the potential discovery of both and maternal genomic abnormalities that could have major, minor, or no, clinical significance. Evaluating the significance of a positive or a non-reportable result may involve both invasive testing and additional studies on the mother. Such investigations may lead to a diagnosis of maternal chromosomal or subchromosomal abnormalities, which on occasion may be associated with benign or malignant maternal neoplasms. These tests may not accurately identify triploidy, balanced rearrangements, or the precise location of subchromosomal duplications or deletions; these may be detected by diagnosis with CVS or amniocentesis. The ability to report results may be impacted by maternal BMI, maternal weight, maternal systemic lupus erythematosus (SLE) and/or by certain pharmaceutical agents such as low molecular weight heparin (for example: Lovenox(R), Xaparin(R), Clexane(R) and Fragmin(R)). Performed By: #### M AT21 ####[employer] LABCLIA [id number] [place] [address] Monosomy X risk Dosage of chromosome-specific cfDNA Ql (Plasma cell-free+WBC DNA) [Interp] Not detected [facility] Comment on above: Order Comment: Speci men Type: BLOOD SPECIMENOrdering Facility: [facility] Address: [address] [place] [address] Performed By: #### M AT21 ####5 CUPS [facility] some [facility]RP LABCLIA [id number] [place] [address] NEGATIVE PREDICTIVE VALUE Note [facility] Comment on above: Order Comment: Speci kathleen Type: BLOOD SPECIMENOrdering Facility: [facility] Address: [address] [place] [address] Result Comment: The Negative Predictive Value (NPV) for trisomy 21, 18, and 13 is greater than 99%. The NPV for SCA and ESS cannot be calculated as SCA and ESS are only reported when an abnormality is detected. Performed By: #### M AT21 ####[facility] LABCLIA [id number] [place] [address] NOTE Comment Normal [facility] Comment on above: Order Comment: Speci men Type: BLOOD SPECIMENOrdering Facility: [facility] Address: [address] [place] [address] Result Comment: See Notes [employer] is a subsidiary of [employer], using the brand [employer]. This test was developed and its performance characteristics determined by [employer]. It has not been cleared or approved by the Food and Drug Administration. This laboratory is certified under the Clinical Laboratory Improvement Amendments (CLIA) as qualified to perform high complexity clinical laboratory testing and accredited by the [employer] (CAP). If there is future clinical need for adding MaterniT GENOME testing, this specimen will be available until term. [facility] samples will not be retained beyond 60 days. [facility] patients will have to send a new sample for re-sequencing ([facility] Test Code: [id number]). Performed By: #### M AT21 ####[facility] LABCLIA [id number] [place] [address] PERFORMANCE CHARACTERISTICS Note Normal [facility] Comment on above: Order Comment: Erica wang Type: BLOOD SPECIMENOrdering Facility: [facility] Address: [address] [place] [address] Result Comment: ! Sex ! Accuracy: 99.4% ! ! ! ! Region (associated syndrome) ! Est. Sens# ! Est. Spec ! ! ! ! Trisomy 21 (Down Syndrome) ! 99.1% ! 99.9% ! ! ! ! Trisomy 18 (Hein Syndrome) ! >99.9% ! 99.6% ! ! ! ! Trisomy 13 (Patau Syndrome) ! 91.7% ! 99.7% ! ! ! ! Sex Chromosome Aneuploidies## ! 96.2% ! 99.7% ! ! ! * As reported in [facility] database nstd37 [https://www.ncbi.nlm.nih.gov/dbvar/studies/nstd37/ ] # Estimated Sensitivity. Sensitivity estimated across the observed size distribution of each syndrome [per [facility] database nstd37] and across the range of fractions observed in routine clinical NIPT. Actual sensitivity can also be influenced by other factors such as the size of the event, total sequence counts, amplification bias, or sequence bias. ## Coy gestation only. Performed By: #### Shannan AT21 ####[employer] Capture TechnologiesIA [id number] [place] [address] POSITIVE PREDICTIVE VALUE N/A [facility] Comment on above: Order Comment: Erica wang Type: BLOOD SPECIMENOrdering Facility: [facility] Address: [address] [place] [address] Performed By: #### Shannan AT21 ####[employer] LABCyterix PharmaceuticalsIA [id number] [place] [address] Reference Lab Test Method Comment Normal [facility] Comment on above: Order Comment: Erica wang Type: BLOOD SPECIMENOrdering Facility: [facility] Address: [address] [place] [address] Result Comment: See Notes Circulating cell-free DNA was purified from the plasma component of maternal blood. The extracted DNA was then converted into a genomic DNA library for aneuploidy analysis of chromosomes 21, 18, and 13 via next generation sequencing.[1] Optional findings based on the test order include sex chromosome aneuploidy (SCA)[2], and enhanced sequencing series (ESS)[3], which will only be reported on as an additional finding when an abnormality is detected. SCA testing includes information on X and Y representation, while ESS testing includes deletions in selected regions (22q, 15q, 11q, 8q, 5p, 4p, 1p) and trisomy of chromosomes 16 and 22. Performed By: #### M AT21 ####S[employer] Capture TechnologiesIA [id number] [place] [address] Sex Dosage of chromosome-specific cfDNA Nom (cfDNA) Comment [facility] Comment on above: Order Comment: Speci men Type: BLOOD SPECIMENOrdering Facility: [facility] Address: [address] [place] [address] Result Comment: Cons istent with Female Performed By: #### M AT21 ####[employer] Capt[employer] TechnologiesIA [id number] [place] [address] Test performance information Thai (Unsp spec) Comment Normal [facility] Comment on above: Order Comment: Speci men Type: BLOOD SPECIMENOrdering Facility: [facility] Address: [address] [place] [address] Result Comment: The performance characteristics of the MaterniT(R) 21 PLUS laboratory-developed test (LDT) have been determined in a clinical validation study with women at increased risk for chromosomal aneuploidy.[1-4] Performed By: #### M AT21 ####5 CUPS and some sugarRP LABCLIA [id number] [place] [address] Trisomy 13 risk Dosage of chromosome-specific cfDNA Ql (cfDNA) [Interp] Negative Normal [facility] Comment on above: Order Comment: Speci men Type: BLOOD SPECIMENOrdering Facility: [facility] Address: [address] [place] [address] Performed By: #### M AT21 ####5 CUPS and some sugarRP LABCLIA [id number] [place] [address] Trisomy 18 risk Dosage of chromosome-specific cfDNA Ql (Plasma cell-free+WBC DNA) [Interp] Negative Normal [facility] Comment on above: Order Comment: Speci kathleen Type: BLOOD SPECIMENOrdering Facility: [facility] Address: [address] [place] [address] Performed By: #### M AT21 ####[facility] LABCLIA [id number] [place] [address] RUBELLA IGG ABon 12-06-2023 RUBELLA IGG AB, QUAL Positive Normal Positive [facility] Comment on above: Order Comment: Speci kathleen Type: BLOOD SPECIMENOrdering Facility: [facility] Address: [address] [place] [address] Result Comment: The result suggests recent or past exposure to Rubella virus or history of Rubella vaccination. Positive result may also be seen due to presence of passively-transferred antibodies. Please correlate with patient's history. Performed By: #### R UBIGG ####[facility] LABCLIA [id number] [place] [address] [place] Reagin and Treponema pallidu m IgG and IgM [Interp]on 12-06-2023 T. pallidum IgG+IgM IA Ql (S) Non-Reactive Normal Nonreactive [facility] Comment on above: Order Comment: Erica kathleen Type: BLOOD SPECIMENOrdering Facility: [facility] Address: [address] [place] [address] Performed By: #### 7 3752-8, 00665-7, 5195-3 ####[facility] LABCLIA [id number] [place] [address] [place] Reagin+T pallidum IgG+IgM Se rPl-Impon 12-06-2023 Reagin and Treponema pallidum IgG and IgM [Interp] Cannot exclude recent Treponemal infection if specimen collected within 7-10 days after appearance of suspect lesions or 2-3 weeks after an exposure. Clinical correlation is required. Normal [facility] Comment on above: Order Comment: Speci kathleen Type: BLOOD SPECIMENOrdering Facility: [facility] Address: [address] [place] [address] Performed By: #### 7 3752-8, 45831-9, 5195-3 ####[facility] LABCLIA [id number] [place] [address] [place] TYPE + SCREEN PRENATALon ABO O [facility] Comment on above: Order Comment: Speci men Type: BLOOD SPECIMENOrdering Facility: [facility] Address: [address] [place] [address] Performed By: #### T SPN ####[facility] BLOOD BANKCLIA [id number] [place] [address] [place] HISTORICAL AB SCR STATUS Negative Normal [facility] Comment on above: Order Comment: Speci men Type: BLOOD SPECIMENOrdering Facility: [facility] Address: [address] [place] [address] Performed By: #### T SPN ####[facility] BLOOD BANKCLIA [id number] [place] [address] [place] Rh Nom (Bld) Negative Normal [facility] Comment on above: Order Comment: Speci men Type: BLOOD SPECIMENOrdering Facility: [facility] Address: [address] [place] [address] Performed By: #### T SPN ####[facility] BLOOD BANKCLIA [id number] [place] [address] [place] TYPE AND SCREEN EXPIRATION 12/09/2023 23:59 Normal [facility] Comment on above: Order Comment: Speci men Type: BLOOD SPECIMENOrdering Facility: [facility] Address: [address] [place] [address] Performed By: #### T SPN ####[facility] BLOOD BANKCLIA [id number] [place] [address] [place] Bacteria Ur Culton 4 Bacteria identified Cx Nom (U) CULTURE, URINE: No growth (<1,000 CFU/ml) Normal [facility] Comment on above: Performed By: #### 6 30-4 ####[facility] LABCLIA [id number] [place] [address] [place] C. trachomatis+N. gonorrhoea e DNA NAYELY+probe Ql (Unsp spec)on 11-07-2023 C. trachomatis rRNA NAYELY+probe Ql (Unsp spec) Negative Normal Negative for Chlamydia trachomatis by amplificaton [facility] Comment on above: Order Comment: Speci men Type: SWABOrdering Facility: [facility] Address: [address] [place] [address] Performed By: #### 3 6902-5 ####[facility] LABIA [id number] [address] [place] N. gonorrhoeae rRNA NAYELY+probe Ql (Unsp spec) Negative Normal Negative for Neisseria gonorrhoeae by amplification [facility] Comment on above: Order Comment: Speci men Type: SWABOrdering Facility: [facility] Address: [address] [place] [address] Performed By: #### 3 6902-5 ####[facility] [id number] [place] [address] [place] CNCOon 11-07-2023 CNCO Letter Text [facility] No Panel Informationon 11-06 [facility] Noe 11-06-2023 HEMAN Telephone (SHOSHANA) STAN DAI ([id number]) 1995 F Date Time Provider Department 11/06/23 GORAN HEAD During your visit today, we recorded the following information about you: Claire Reed MA 11/06/2023 1:31 PM Signed Left voicemail for patient to call back to complete intake. I can be reached at ext: [phone]. JAMES Mcgee Trisha, RN 11/06/2023 1:57 PM Signed Patient called back, but Claire was unavailable. She only has 5 more minutes of her break at work now. Her next break isn't until 430. PARISH Bruce Kimberly, LPN 11/06/2023 4:43 PM Signed Pt returned call and OB questionnaire completed. Carly Coburn LPN Allergies As of Date: 11/06/2023 Noted Allergy Reaction CECLOR (CEFACLOR) 01/14/2009 2 - Rash LIQUID BANDAGE (DYCLONINE-BENZETH*0 01/07/2019 2 - Rash 4 - Hives Comments: dermabond Date Reviewed: 11/06/2023 Reviewed by: Carly Coburn LPN - Fully Assessed Reason for Visit: Patient message [Other] Prescriptions as of 11/06/2023 - fluocinolone (SYNALAR) 0.025 % ointment Apply to affected area as directed. apply a pea-sized amount tid x 2 weeks, bid x 2 weeks, daily x 2 weeks then every other day x 2 weeks - vit 10-smev-eveqh-dha (PRENATE MINI, FERR ASP GLYCIN,) 18-1-350 mg cap Take 1 Dose by mouth once daily. - clotrimazole (LOTRIMIN, CLOTRIM) 1 % cream Apply to affected area twice daily. - SUMAtriptan (IMITREX) 50 mg tablet Take 1 tablet by mouth at onset of migraine, may take again in 2 hours if necessary. - Ibuprofen 200 mg cap 400 mg. - acetaminophen (TYLENOL) 325 mg tablet Acetaminophen Acetaminophen [Tylenol Tablet] 650 MG PO EVERY 6 HOURS NEEDED PRN For Pain October 07, 2018 Active 10-07-2018 [facility] ([id number]) Meds Comments as of 04/15/2014: Problem List As Of Date 11/06/2023 Noted Resolved Shoulder pain [M25.519] 06/30/2009 03/29/2015 Seasonal allergies [J30.2] 10/21/2011 Arm edema [R60.0] 10/21/2011 03/29/2015 Irregular menstrual cycle [N92.6] 03/29/2015 Superior glenoid labrum lesion of right shoulde*03/13/2017 Encounter Status:Closed by CARLY COBURN on 11/06/23 [facility] US FEMALE PELVIS TRANSVAGon 09-06-2023 US FEMALE PELVIS TRANSVAG * * *Final Report* * * DATE OF EXAM: Sep 06 2023 2:53PM WRU 1060 - US FEMALE PELVIS TRANSVAG / PROCEDURE REASON: Pelvic pain in female * * * * Physician Interpretation * * * * EXAMINATION: TRANSVAGINAL AND LIMITED TRANSABDOMINAL FEMALE PELVIC ULTRASOUND CLINICAL HISTORY: 28 years old Female with Pelvic pain in female. LMP 08/21/2023. TECHNIQUE: Sonography of the pelvis was performed by transvaginal and transabdominal (limited) techniques. Images were obtained and stored in a permanent archive. MQ: [facility]_2021 COMPARISON: Pelvic ultrasound 08/09/2022 RESULT: Uterus: -Size: 8.4 x 4.0 x 4.5 cm -Orientation: Anteverted -Endometrial echo complex: Evaluation of the endometrium was adequate. No endometrial abnormality. The endometrial echo complex measured 1.6 cm. -Cervix: Unremarkable. -Adenomyosis assessment: There are no sonographic findings of adenomyosis. -Fibroids: There are no fibroids. Right Ovary: 4.7 x 2.8 x 3.0 cm - Normal sonographic appearance with physiologic follicles and a corpus luteum. Doppler imaging showed normal arterial and venous flow throughout the ovary. Left Ovary: Surgically absent. Free Fluid: No abnormal free fluid is present. IMPRESSION: Status post LEFT oophorectomy. Otherwise, normal sonographic appearance of the female pelvis for patient's age. Car Pincher: PSCB Transcribe Date/Time: Sep 07 2023 5:12P Dictated by : ALEJANDRINA VALVERDE DO This examination was interpreted and the report reviewed and electronically signed by: ALEJANDRINA VALVERDE DO on Sep 07 2023 5:16PM EST [id number] [facility] Bacteria Ur Culton Bacteria identified Cx Nom (U) ORGANISM ID: 1 <10,000 CFU/ml Normal urogenital jennifer Normal [facility] Comment on above: Performed By: #### 6 30-4 ####[facility] LABCLIA [id number] [address] [id number] [address] [place] CNOVon 09-05-2023 CNOV Office Visit (OBGYWM) STAN DAI ([id number]) 1995 F Date Time Provider Department 09/05/23 2:00 PM CANDIE CAMARGO OBGYWM During your visit today, we recorded the following information about you: Blood pressure Weight 112/78 80.3 kg Candie Camargo MD 09/05/2023 3:15 PM Signed Timurart Dai is a 28 year old female who presents for problem visit for some pelvic and urinary symptoms. HPI: 28 YOF seen in ED last week for pelvic pressure, frequency of urination, incontinence x 2 and dysuria. Took 3 days of bactrim, no culture sent and symptoms improved but not resolved. Last menses was a little different for her but only lasted 3 days. Now having menstrual type cramping 5/10 and using ibuprofen prn. No abnormal vaginal discharge/ Some vulvar irritation. Pain more in the middle. Patient has not been preventing . Has been attempting since February 2023. Has not had any success. Neither she nor her partner have any medical issues or surgeries in the past that should limit fertility other than patient had an oophorectomy for large ovarian cyst in the past. She had no evidence of endometriosis or tubal damage at that time. OB History T0 L0 SAB0 IAB0 Ectopic0 Multiple0 Live Births0 Wire Stockkeeper History LMP: 08/21/2023 (Exact Date), Having periods Age at Menarche: Age at First : Age at Menopause: Wire Stockkeeper History Comments: Sexual Activity: Yes; No partner [...] cream Apply to affected area twice daily. Ibuprofen 200 mg cap 400 mg. acetaminophen (TYLENOL) 325 mg tablet Acetaminophen Acetaminophen [Tylenol Tablet] 650 MG PO EVERY 6 HOURS NEEDED PRN For Pain October 07, 2018 Active 10-07-2018 [facility] ([id number]) SUMAtriptan (IMITREX) 50 mg tablet Take 1 tablet by mouth at onset of migraine, may take again in 2 hours if necessary. (Patient not taking: Reported on 08/30/2023) No current facility-administere d medications for this visit. Allergies As of Date: 09/05/2023 Allergen Noted Reaction CECLOR [CEFACLOR] 01/14/2009 Rash LIQUID BANDAGE [DYCLONINE-BENZETH*0 01/07/2019 Rash and Hives Fully Assessed 09/05/2023 REVIEW OF SYSTEMS Abdomen: No bloating, early satiety, indigestion, or increased flatulence. No abdominal pain, nausea, vomiting, diarrhea, or Allergies and current medication updated:Yes EXAM: BP 112/78 Wt 177 lb (80.3kg) LMP 08/21/2023 GENERAL: pleasant, female in no apparent distress ABDOMEN: soft, non-tender, no masses, Mild tenderness in suprapubic area, rebound Absent, and guarding Absent PELVIC: normal Bartholin's glands, urethra, Mcnair's glands, no vulvar lesions, no cervical lesions, good vaginal support, physiologic discharge present, normal appearing perineal body and perianal region, External genitalia around the posterior fourchette and perineal area shows thin papery white skin with hypopigmentation. Some sleep hypopigmentation at the vaginal introitus at 6:00. No obvious periclitoral or periurethral hypopigmentation. There is no hyperpigmentation. There are no fissures or ulcerations. No erythema. BIMANUAL: uterus normal size, shape and consistency, no adnexal masses, and non-tender ASSESSMENT AND PLAN: Encounter Diagnosis ICD-10-CM 1. Pelvic pain in female R10.2 Discussed with patient uncertain etiology of her pain. Check pelvic ultrasound. Continue NSAIDs as needed. Check urine culture as well to be thorough. Vulvar pruritus and focal pigmentation of the vulva. I discussed with the patient I think most of her urinary and vulvar irritation symptoms are more due to what appears to be lichen sclerosis. There is hypopigmentation of the vulva. Discussed with her chronic recurring nature of this. Will recommend a vulvar biopsy but for now we will treat with steroid taper and return in 6 weeks for biopsy and assess how she is doing. Patient is comfortable with this plan. Preconceptual counseling. I discussed with the patient recommend that she start a vitamin. We discussed this shivani healthy lifestyle and gen (more content not included)... [facility] PAP TESTon 09-05-2023 ADEQUACY Satisfactory for interpretation Normal [facility] Comment on above: Order Comment: Speci men Type: FLUID SPECIMENOrdering Facility: SELECT [facility] Address: [address] [place] [address] Performed By: #### L [id number] ####[facility] LABCLIA [id number] [place] [address] [place] CASE REPORT [facility] Comment on above: Order Comment: Speci men Type: FLUID SPECIMENOrdering Facility: [facility] Address: [address] [place] [address] Result Comment: Gyne cologic Cytology Report Case: [id number] Authorizing Provider: Candie Camargo MD Collected: 09/05/2023 02:47 PM Ordering Location: OB/Gynecology Received: 09/05/2023 04:33 PM First Screen: [place], [place], [place], ASCP Specimen: Pap Test, ThinPrep, Cervix Performed By: #### L [id number] ####[facility] LABCLIA [id number] [address] [address] [place] CLINICAL HISTORY, CYTOLOGY, CLASP MACHINE OPERATOR Routine Exam Normal [facility] Comment on above: Order Comment: Speci men Type: FLUID SPECIMENOrdering Facility: [facility] Address: [address] [place] [address] Performed By: #### L [id number] ####[facility] LABCLIA [id number] [place] [address] [place] FINAL PERFORMING LAB Normal [facility] Comment on above: Order Comment: Speci men Type: FLUID SPECIMENOrdering Facility: [facility] Address: [address] [place] [address] Result Comment: Tech nical component, electrician ship screening performed at [facility], [address] [place] [address] CLIA# [id number] Diagnostic interpretation performed at [facility], [address] [place] [address] CLIA# [id number] Circulating Nurse: Gabriel Burnham M.D. Performed By: #### L [id number] ####[facility] LABCLIA [id number] [place] [address] [place] HPV REFLEX HPV if Atypical Normal [facility] Comment on above: Order Comment: Speci men Type: FLUID SPECIMENOrdering Facility: [facility] Address: [address] [place] [address] Performed By: #### L [id number] ####[facility] LABCLIA [id number] [place] [id number] [place] INTERPRETATION, CYTOLOGY, CLASP MACHINE OPERATOR [facility] Comment on above: Order Comment: Speci men Type: FLUID SPECIMENOrdering Facility: [facility] Address: [address] [place] [address] Result Comment: Nega tive for intraepithelial lesion or malignancy. Performed By: #### L [id number] ####[facility] LABCLIA [id number] [address] [place] LMP 08/21/2023 Normal [facility] Comment on above: Order Comment: Speci men Type: FLUID SPECIMENOrdering Facility: [facility] Address: [address] [place] [address] Performed By: #### L [id number] ####[facility] LABIA [id number] [address] [place] PAP DISCLAIMER COMMENT The Pap Smear is a screening test for cervical cancer. False negative results occur with all screening tests, emphasizing the need for rescreening at recommended intervals, and clinical correlation. Normal [facility] Comment on above: Order Comment: Speci men Type: FLUID SPECIMENOrdering Facility: [facility] Address: [address] [place] [address] Performed By: #### L [id number] ####[facility] LABIA [id number] [address] [place] PAP PROPERTY COORDINATOR COMMENT This specimen has been analyzed by the ThinPrep Imaging System, an automated imaging and review system, which assists the laboratory in evaluating cells on ThinPrep Pap tests. Following automated imaging, selected diop from every slide are reviewed by a electrician ship. Normal [facility] Comment on above: Order Comment: Speci men Type: FLUID SPECIMENOrdering Facility: [facility] Address: [address] [place] [address] Performed By: #### L [id number] ####[facility] LABIA [id number] [address] [place] CNOVon 08-30-2023 CNOV Office Visit (UCWSTR) STAN DAI ([id number]) 1995 F Date Time Provider Department 08/30/23 5:30 PM CATINA CHAVEZ [facility] During your visit today, we recorded the following information about you: Temperature Pulse Respiration Blood pressure 98.9 degrees 89/minute 16/minute 132/80 Weight Last Period 81.6 kg 08/21/23 Catina Chavez APRN.FLIGHT COMMUNICATIONS SPECIALIST 08/30/2023 5:56 PM Signed This note was created using NoteWriter. Subjective Stan Dai is a 28 year old female. 28 year old female with PMH ovarian cyst presents for possible UTI Acute onset 4 days ago +urgency +lower abdominal pain severe +nausea Denies fever or chills. She is sexually active, and attempting to conceive LMP- through 08/26/23 but endorses it was abnormal compared to others History of ovarian cyst with x 1 ovary removed She further endorses that she has been experiencing bouts of feeling as though she is going to pass out. The history is provided by the patient. No ui architect was used. Abdominal Pain This is a new problem. The current episode started more than 2 days ago. The problem occurs constantly. The problem has been gradually worsening. The pain is located in the LLQ and RLQ. The pain is at a severity of 8/10. The pain is moderate. Associated symptoms include frequency. Pertinent negatives include arthralgias. Nothing aggravates the symptoms. Nothing relieves the symptoms. PAST MEDICAL HISTORY Diagnosis Date Irregular menstrual cycle Menarche 2006 age 11 NEGATIVE HISTORY OF 10-21-2011 Normal Color Vision PAST SURGICAL HISTORY Procedure Laterality Date LAPAROSCOPY W/RMVL ADNEXAL STRUCTURES Left 12/26/2018 LSO for large atypical appearing cyst ALLERGIES Ceclor [Cefaclor], Environmental [Other], and Liquid Bandage [Dyclonine-Benzethon ium] MEDICATIONS clotrimazole (LOTRIMIN, CLOTRIM) 1 % cream Apply to affected area twice daily. Ibuprofen 200 mg cap 400 mg. acetaminophen (TYLENOL) 325 mg tablet Acetaminophen Acetaminophen [Tylenol Tablet] 650 MG PO EVERY 6 HOURS NEEDED PRN For Pain October 07, 2018 Active 10-07-2018 [facility] ([id number]) SUMAtriptan (IMITREX) 50 mg tablet Take 1 tablet by mouth at onset of migraine, may take again in 2 hours if necessary. (Patient not taking: Reported on 08/30/2023) FAMILY HISTORY Problem Relation Age of Onset No Known Problems Mother Heart Father Stent - 09/2007 Cervical Cancer Maternal Grandmother Cancer Paternal Grandfather Social History Tobacco Use Smoking status: Never Smokeless tobacco: Never Vaping Use Vaping Use: Never used Substance Use Topics Alcohol use: No Drug use: No Review of Systems Respiratory: Negative for apnea, cough, choking and chest tightness. Cardiovascular: Negative for chest pain, palpitations and leg swelling. Gastrointestinal: Positive for abdominal pain. Genitourinary: Positive for frequency. Musculoskeletal: Negative for arthralgias, back pain and gait problem. Skin: Negative for color change, pallor, rash and wound. Hematological: Negative for adenopathy. Does not bruise/bleed easily. Psychiatric/Behavior al: Negative for agitation and behavioral problems. Objective BP 132/80 Pulse 89 Temp 37.2 ?C (98.9 ?F) Resp 16 Wt 81.6 kg (179 lb 12.8 oz) LMP 08/21/2023 (Exact Date) SpO2 98% BMI 29.92 kg/m? Physical Exam Vitals and nursing note reviewed. Constitutional: General: She is not in acute distress. Appearance: Normal appearance. She is normal weight. She is not ill-appearing, toxic-appearing or diaphoretic. HENT: Head: Normocephalic and atraumatic. Right Ear: Ear canal and external ear normal. Left Ear: Ear canal and external ear normal. Nose: Nose normal. No congestion or rhinorrhea. Mouth/Throat: Mouth: Mucous membranes are moist. Pharynx: No oropharyngeal exudate or posterior oropharyngeal erythema. Eyes: General: Right eye: No discharge. Left eye: No discharge. Extraocular Movements: Extraocular movements intact. Conjunctiva/sclera: Conjunctivae normal. Pupils: Pupils are equal, round, and reactive to light. Cardiovascular: Rate and Rhythm: Normal rate and regular rhythm. Pulses: Normal pulses. Heart sounds: Normal heart sounds. No murmur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 Serum HEP B SURF AG SCRN Lab Routine Encounter for care in first trimester of first 6 weeks gestation of Expected: 11/07/2023, Expires: 02/06/2024 [facility] Work Phone: Comment on above: Expected: 11/07/2023 , Expires: 02/06/2024 Start: 11-07-2023 End: 02-06-2024 Hepatitis C virus Ab [Presence] in Serum HEPATITIS C ANTIBODY IA WITH CONFIRMATION Lab Routine Encounter for care in first trimester of first 6 weeks gestation of Expected: 11/07/2023, Expires: 02/06/2024 [facility] Work Phone: Comment on above: Expected: 11/07/2023 , Expires: 02/06/2024 Start: 11-07-2023 End: 02-06-2024 HIV 1+2 Ab [Presence] in Serum or Plasma by Immunoassay HIV 1 2 COMBO(AG/AB),WITH REFLEX TO DIFFERENTIATION Lab Routine Encounter for care in first trimester of first 6 weeks gestation of Expected: 11/07/2023, Expires: 02/06/2024 [facility] Work Phone: Comment on above: Expected: 11/07/2023 , Expires: 02/06/2024 Start: 11-07-2023 End: 11-06-2024 NUCHAL TRANSLUCENCY WHI NUCHAL TRANSLUCENCY WHI Anc Imaging Routine Encounter for care in first trimester of first 6 weeks gestation of Expected: 11/07/2023, Expires: 11/06/2024 [facility] Work Phone: Comment on above: Expected: 11/07/2023 , Expires: 11/06/2024 Start: 11-07-2023 End: 02-06-2024 RUBELLA IGG AB RUBELLA IGG AB Lab Routine Encounter for care in first trimester of first 6 weeks gestation of Expected: 11/07/2023, Expires: 02/06/2024 [facility] Work Phone: Comment on above: Expected: 11/07/2023 , Expires: 02/06/2024 Start: 11-07-2023 End: 02-06-2024 SYPHILIS TOTAL W/REFLEX SYPHILIS TOTAL W/REFLEX Lab Routine Encounter for care in first trimester of first 6 weeks gestation of Expected: 11/07/2023, Expires: 02/06/2024 [facility] Work Phone: Comment on above: Expected: 11/07/2023 , Expires: 02/06/2024 Start: 11-07-2023 End: 02-06-2024 TYPE + SCREEN TYPE + SCREEN Blood Bank Routine Encounter for care in first trimester of first 6 weeks gestation of Expected: 11/07/2023, Expires: 02/06/2024 [facility] Work Phone: Comment on above: Expected: 11/07/2023 , Expires: 02/06/2024 Start: 09-03-2023 Behavioral Health Screening Behavioral Health Screening [facility] Start: 09-03-2023 Depression Assessment Depression Ass [facility] Start: 05-04-2023 Covid-19 Vaccine () Covid-19 Vaccine () [facility] Start: 05-04-2023 Influenza vaccination Influenza Vacc ine (#1) [facility] Start: 09-03-2022 Depression Assessment Depression Ass [facility] Start: 2015 Pap Testing Pap Testing [facility] Start: 2012 Anxiety Screening Anxiety Screening [facility] Start: 2012 Depression Screening Depression Scre ening [facility] Start: 2012 Hepatitis C Screening Hepatitis C [facility] Start: 2012 Hepatitis C screening Hepatitis C [facility] Start: 2012 HIV Screening HIV Screening [facility] Start: 2012 HIV screening HIV Screening [facility] Start: 01-19-1995 Covid-19 Vaccine (#1) Covid-19 Vacci ne (#1) [facility] Bacteria identified in Urine by Culture URINE CULTURE Microbiology Routine Encounter for care in first trimester of first 6 weeks gestation of 11/07/2023 9:59 AM EST [facility] Work Phone: Chlamydia trachomatis+Neisseria gonorrhoeae DNA [Presence] in Unspecified specimen by NAYELY with probe detection GONORRHEA/CHLAMYDIA NAAT Lab Routine Encounter for care in first trimester of first 6 weeks gestation of 11/07/2023 9:59 AM EST [facility] Work Phone: COVID & INFLUENZA A/ B & RSV NAAT, ROUTINE COVID & INFLUENZA A/B & RSV NAAT, ROUTINE Microbiology Routine Suspected COVID-19 virus infection 05/22/2023 12:03 PM EDT [facility] Work Phone: End: 02-05-2025 ECG COMPLETE ECG COMPLETE ECG Routine Encounter for supervision of normal first in second trimester Tachycardia 1 Occurrences starting 02/06/2024 until 02/05/2025 [facility] Comment on above: 1 Occurrences starti ng 02/06/2024 until 02/05/2025 End: 08-09-2022 PELVIC US WHI PELVIC US I Anc Imaging Routine Acute abdominal pain 1 Occurrences starting 08/09/2022 until 08/09/2022 [facility] Work Phone: Comment on above: 1 Occurrences starti ng 08/09/2022 until 08/09/2022 ROUTINE FLU A/B + RSV ROUTINE FL U A/B + RSV Lab Routine Suspected COVID-19 virus infection 05/22/2023 12:03 PM EDT [facility] Work Phone: ROUTINE, GROUP B STREP PCR ROUTINE, GROUP B STREP PCR Microbiology Routine 35 weeks gestation of Anemia complicating , third trimester 05/28/2024 11:31 AM EDT [facility] Work Phone: SARS-CoV-2 (COVID-19 ) RNA [Presence] in Respiratory specimen by NAYELY with probe detection COVID NAAT, UPPER RESPIRATORY, ROUTINE Microbiology Routine Suspected COVID-19 virus infection 05/22/2023 12:03 PM EDT [facility] Work Phone: Therapeutic prophylactic/dx injection subq/im THER/PROPH/DIAG INJ, SC/IM Procedures Routine Rh negative state in antepartum period Ordered: 04/16/2024 [facility] Work Phone: Comment on above: Ordered: 04/16/2024 URINE OB DIP B/O URINE OB DIP B/ O Lab Routine 36 weeks gestation of Anemia complicating , third trimester Encounter for supervision of normal first in third trimester Ordered: 06/03/2024 [facility] Work Phone: Comment on above: Ordered: 06/03/2024 URINE OB DIP B/O URINE OB DIP B/ O Lab Routine Anemia complicating , third trimester Encounter for supervision of normal first in third trimester GBS (group B Streptococcus carrier), +RV culture, currently 37 weeks gestation of Ordered: 06/10/2024 [facility] Work Phone: Comment on above: Ordered: 06/10/2024 [facility] Immunizations Immunization Date Immunization Notes Care Provider Corinna cruz 05-28-2024 respiratory syncytia l virus (RSV) vaccine, bivalent (ABRYSVO) Candie Camargo MD Work Phone: [facility] 04-30-2024 tetanus toxoid, reduced diphtheria toxoid, and acellular pertussis vaccine, adsorbed Candie Camargo MD Work Phone: [facility] 04-16-2024 RHO(D) immune globulin- IV or IM Candie Camargo MD Work Phone: [facility] 09-08-2019 tuberculin skin test ; purified protein derivative solution, intradermal Candie Camargo MD Work Phone: [facility] 08-20-2019 tuberculin skin test ; purified protein derivative solution, intradermal Candie Camargo MD Work Phone: [facility] 08-12-2019 influenza, injectabl e, quadrivalent, contains preservative Miko Walker MD Work Phone: [facility] 08-12-2019 tuberculin skin test ; purified protein derivative solution, intradermal Candie Camargo MD Work Phone: [facility] 08-12-2019 influenza virus vaccine, unspecified formulation Miko Walker MD Work Phone: [facility] 10-06-2018 tetanus toxoid, reduced diphtheria toxoid, and acellular pertussis vaccine, adsorbed Miko Walker MD Work Phone: [facility] Work Phone: 01-29-2018 tuberculin skin test ; purified protein derivative solution, intradermal Candie Camargo MD Work Phone: [facility] 04-14-2013 Meningococcal, MCV4, unspecified conjugate formulation(groups A, C, Y and W-135) Miko Walker MD Work Phone: [facility] 04-06-2008 hepatitis A vaccine, unspecified formulation Miko Walker MD Work Phone: [facility] Work Phone: 04-11-2007 hepatitis A vaccine, unspecified formulation Miko Walker MD Work Phone: [facility] Work Phone: 04-11-2007 Meningococcal, MCV4, unspecified conjugate formulation(groups A, C, Y and W-135) Miko Walker MD Work Phone: [facility] Work Phone: 04-11-2007 tetanus toxoid, reduced diphtheria toxoid, and acellular pertussis vaccine, adsorbed Miko Walker MD Work Phone: [facility] Work Phone: 12-30-1999 diphtheria, tetanus toxoids and acellular pertussis vaccine Miko Walker MD Work Phone: [facility] Work Phone: 12-30-1999 measles, mumps and rubella virus vaccine Miko Walker MD Work Phone: [facility] Work Phone: 12-30-1999 poliovirus vaccine, inactivated Miko Walker MD Work Phone: [facility] Work Phone: 09-03-1996 chicken pox (disease) Den Walker MD Work Phone: [facility] Work Phone: 10-17-1995 diphtheria, tetanus toxoids and acellular pertussis vaccine Miko Walker MD Work Phone: [facility] Work Phone: 10-17-1995 haemophilus influenz ae type b vaccine, HbOC conjugate Miko Walker MD Work Phone: [facility] Work Phone: 07-23-1995 measles, mumps and rubella virus vaccine Miko Walker MD Work Phone: [facility] Work Phone: 01-20-1995 diphtheria, tetanus toxoids and acellular pertussis vaccine Miko Walker MD Work Phone: [facility] Work Phone: 01-20-1995 haemophilus influenz ae type b vaccine, HbOC conjugate Miko Walker MD Work Phone: [facility] Work Phone: 01-20-1995 hepatitis B vaccine, pediatric or pediatric/adolescent dosage Miko Walker MD Work Phone: [facility] Work Phone: 01-20-1995 poliovirus vaccine, inactivated Miko Walker MD Work Phone: [facility] Work Phone: 1994 diphtheria, tetanus toxoids and acellular pertussis vaccine Miko Walker MD Work Phone: [facility] Work Phone: 1994 haemophilus influenz ae type b vaccine, HbOC conjugate Miko Walker MD Work Phone: [facility] Work Phone: 1994 poliovirus vaccine, inactivated Miko Walker MD Work Phone: [facility] Work Phone: 1994 diphtheria, tetanus toxoids and acellular pertussis vaccine Miko Walker MD Work Phone: [facility] Work Phone: 1994 haemophilus influenz ae type b vaccine, HbOC conjugate Miko Walker MD Work Phone: [facility] Work Phone: 1994 poliovirus vaccine, inactivated Miko Walker MD Work Phone: [facility] Work Phone: 1994 hepatitis B vaccine, pediatric or pediatric/adolescent dosage Miko Walker MD Work Phone: [facility] Work Phone: 1994 hepatitis B vaccine, pediatric or pediatric/adolescent dosage Miko Walker MD Work Phone: [facility] Work Phone: Payers Date Payer Category Payer Unknown [employer] PPO [id number] 2024-Present [phone] [address] [place] [address] PPO [id number] 2024 Unknown [id number] 2022 Private Health Insurance [id number] 2022 Unknown [id number] Social History Date Type Detail Facility Start: 04-15-2014 End: 11-06-2023 Tobacco smoking status NHIS Never smoked tobacco [facility] Start: 04-15-2014 End: 11-06-2023 Tobacco use and exposure Smokeless tobacco non-user [facility] Start: 05-22-2023 End: 06-23-2024 Alcohol intake Current non-drinker of alcohol (finding) [facility] Start: 05-22-2023 End: 02-06-2024 History of Social function [facility] Start: 05-22-2023 End: 02-06-2024 Tobacco use panel [facility] Adult Depression Screening Assessment 0 [facility] Start: 1994 Sex Assigned At Not on file [facility] Start: 11-06-2023 Education 17 [facility] Start: 10-05-2023 [facility] NEGATED: Highlighted rowStart: NINF History of tobacco use Passive smoker [facility] Goals Date Patient Goal Desired Activity /State Personal health goal Clinical Notes 10-21-2011 to 06-24-2024 Telephone Encounter - Zachariah Mendoza MD - 06/24/2024 3:41 PM EDTTelephone Encounter - Zachariah Mendoza MD - 06/24/2024 3:41 PM EDTTelephone Encounter - Kenyatta Funes RN - 06/24/2024 12:49 PM EDT Note Date & Type Note Facility 06-24-2024 Telephone encounter Note Noted & agree. Zachariah Mendoza MD [facility] Work Phone: 06-24-2024 Miscellaneous Notes Noted & agree. Zachariah Mendoza MD 39w4d Patient seen in office today with RR for contractions. Patient states that they are 3 min apart and more painful. She was 3 cm in the office. Going to go to L&D. Called L&D and sent updated H&P. Kenyatta Funes RN documented in this encounter [facility] 06-24-2024 Telephone encounter Note 39w4d Patient seen in office today with RR for contractions. Patient states that they are 3 min apart and more painful. She was 3 cm in the office. Going to go to L&D. Called L&D and sent updated H&P. Kenyatta Funes RN [facility] 06-24-2024 Note HNO ID: [id number] Author: CANDIE CAMARGO MD Service: ? Author Type: Physician Type: Progress Notes Filed: 06/24/2024 10:24 Note Text: NST SUMMARY PROVIDER ASSESSMENT AND INTERPRETATION Stan Dai is a 28 year old female, , who is at 39w4d with an TIFFANIE of 06/27/2024, by Last Menstrual Period dating method. Indications for NST: Other: contracetions Baseline: 140 Variability: Moderate Accelerations: Present 15 X 15 Decelerations: None Contractions: TOCO: None Interpretation: Category I and Reactive SIGNATURE: Candie Camargo MD [facility] 06-24-2024 History of Presen t illness Narrative NST SUMMARY PROVIDER ASSESSMENT AND INTERPRETATION Stan Dai is a 28 year old female, , who is at 39w4d with an TIFFANIE of 06/27/2024, by Last Menstrual Period dating method. Indications for NST: Other: contracetions Baseline: 140 Variability: Moderate Accelerations: Present 15 X 15 Decelerations: None Contractions: TOCO: None Interpretation: Category I and Reactive SIGNATURE: Candie Camargo MD documented in this encounter [facility] 06-24-2024 Progress note Formatting of t his note might be different from the original. RR- VB No. LOF No. CTXS yes since 130 am, getting more frequent and more painful . Movement: present. Other c/o: No. Medication list reviewed. Physical Exam See Flow Sheet Abd: soft, nontender, gravid Ext: edema: no A/P 39w4d Estimated Date of Delivery: 06/27/24 c/o ctxs. Prodromal labor. D/w her option to L&D for augmentation vs expectant management. Desires to D/c home for now and will return w/ SROM or worsening./closer ctxs or other concerns. If ctxs stop f/u next week as scheduled GBS + will need prophylaxis in labor. Candie Camargo M.D. [facility] 06-24-2024 Miscellaneous Notes RR- VB No. LOF No. CTXS yes since 130 am, getting more frequent and more painful . Movement: present. Other c/o: No. Medication list reviewed. Physical Exam See Flow Sheet Abd: soft, nontender, gravid Ext: edema: no A/P 39w4d Estimated Date of Delivery: 06/27/24 c/o ctxs. Prodromal labor. D/w her option to L&D for augmentation vs expectant management. Desires to D/c home for now and will return w/ SROM or worsening./closer ctxs or other concerns. If ctxs stop f/u next week as scheduled GBS + will need prophylaxis in labor. Candie Camargo M.D. documented in this encounter [facility] 06-24-2024 Instructions Shantal Teague MA - 06/24/2024 9:26 AM EDT SEQUENTIAL SCREENINGS The [facility] offers sequential screenings for women who are interested in screenings for chromosomal abnormalities and certain defects during a . The sequential screen combines ultrasound and blood tests to determine the risk of chromosomal abnormalities, including Down's Syndrome (Trisomy 21) and Trisomy 18, as well as open neural tube defects including spina bifida. Ultrasound examination is performed between 11 weeks and 13 weeks gestational age. Blood tests are drawn after the ultrasound and again later in the between 15 and 21 weeks gestational age. Please let your physician know if you are interested in this testing. It will require an appointment with our soil field technician. This is not an ultrasound performed by a physician in our office during a routine visit. SIGNS AND SYMPTOMS OF LABOR 1. Contractions every 10 minutes or more often 2. Clear, pink, or brownish fluid (water) leaking from vagina 3. Feeling that baby is pushing down, pressure 4. Low, dull backache 5. Cramps that feel like a period 6. Cramps with or without diarrhea If you notice any of the above symptoms, contact our office at [phone] and ask to speak with a nurse. After hours, you can call [facility] at [phone] OR call [facility] at [phone] and ask to have the doctor staff weapons officer paged. If you consider this an emergency, dial 1-8-8 or go to your nearest emergency department. NEED HELP? Are you dealing with a violent or abusive relationship? Are you a victim of rape or sexual assult? Call [facility] 24 hour Crisis Hotline: 356.682.9111 or 526-330-5758. MANUAL Your Guide to a Healthy manual is now on-line. Visit [email or web address] [email or web address] to download your free copy documented in this encounter [facility] 06-23-2024 Progress note Formatting of t his note might be different from the original. RR- VB No. LOF No. CTXS few Movement: present. Other c/o: No. Medication list reviewed. Physical Exam See Flow Sheet Abd: soft, nontender, gravid Ext: edema: Trace A/P 39w3d Estimated Date of Delivery: 06/27/24 kick counts. f/u in 1 week if not delivered The sensitive examination was discussed with the Patient or Patient's Authorized Light Armored Reconnaissance Officer. As applicable, any other physician, advance practice provider, medical student, or other health professional student that will be observing or involved in the sensitive examination for educational or training purposes was discussed with the Patient or Authorized Light Armored Reconnaissance Officer. The Patient or Authorized Light Armored Reconnaissance Officer has agreed to proceed with the sensitive examination. (Sensitive examination includes inspection and/or palpation of the breasts, pelvis, prostate and anorectal regions) Candie Camargo M.D. [facility] 06-23-2024 Miscellaneous Notes RR- VB No. LOF No. CTXS few Movement: present. Other c/o: No. Medication list reviewed. Physical Exam See Flow Sheet Abd: soft, nontender, gravid Ext: edema: Trace A/P 39w3d Estimated Date of Delivery: 06/27/24 kick counts. f/u in 1 week if not delivered The sensitive examination was discussed with the Patient or Patient's Authorized Light Armored Reconnaissance Officer. As applicable, any other physician, advance practice provider, medical student, or other health professional student that will be observing or involved in the sensitive examination for educational or training purposes was discussed with the Patient or Authorized Light Armored Reconnaissance Officer. The Patient or Authorized Light Armored Reconnaissance Officer has agreed to proceed with the sensitive examination. (Sensitive examination includes inspection and/or palpation of the breasts, pelvis, prostate and anorectal regions) Candie Camargo M.D. documented in this encounter [facility] 06-23-2024 Instructions Shantal Teague MA - 06/23/2024 8:56 AM EDT SEQUENTIAL SCREENINGS The [facility] offers sequential screenings for women who are interested in screenings for chromosomal abnormalities and certain defects during a . The sequential screen combines ultrasound and blood tests to determine the risk of chromosomal abnormalities, including Down's Syndrome (Trisomy 21) and Trisomy 18, as well as open neural tube defects including spina bifida. Ultrasound examination is performed between 11 weeks and 13 weeks gestational age. Blood tests are drawn after the ultrasound and again later in the between 15 and 21 weeks gestational age. Please let your physician know if you are interested in this testing. It will require an appointment with our soil field technician. This is not an ultrasound performed by a physician in our office during a routine visit. SIGNS AND SYMPTOMS OF LABOR 1. Contractions every 10 minutes or more often 2. Clear, pink, or brownish fluid (water) leaking from vagina 3. Feeling that baby is pushing down, pressure 4. Low, dull backache 5. Cramps that feel like a period 6. Cramps with or without diarrhea If you notice any of the above symptoms, contact our office at [phone] and ask to speak with a nurse. After hours, you can call doctors registry at [phone] OR call [facility] at [phone] and ask to have the doctor staff weapons officer paged. If you consider this an emergency, dial 6-3-7 or go to your nearest emergency department. NEED HELP? Are you dealing with a violent or abusive relationship? Are you a victim of rape or sexual assult? Call [facility] ([place]) 24 hour Crisis Hotline: 595.401.2657 or 072-095-0819. MANUAL Your Guide to a Healthy manual is now on-line. Visit [email or web address] to download your free copy documented in this encounter [facility] 06-17-2024 Progress note Formatting of t his note might be different from the original. RR- VB No. LOF No. CTXS No. Movement: present. Other c/o: No. Medication list reviewed. Physical Exam See Flow Sheet Abd: soft, nontender, gravid Ext: edema: Trace A/P 38w4d Estimated Date of Delivery: 06/27/24 kick counts, labor precautions . The sensitive examination was discussed with the Patient or Patient's Authorized Light Armored Reconnaissance Officer. As applicable, any other physician, advance practice provider, medical student, or other health professional student that will be observing or involved in the sensitive examination for educational or training purposes was discussed with the Patient or Authorized Light Armored Reconnaissance Officer. The Patient or Authorized Light Armored Reconnaissance Officer has agreed to proceed with the sensitive examination. (Sensitive examination includes inspection and/or palpation of the breasts, pelvis, prostate and anorectal regions) Candie Camargo M.D. [facility] 06-17-2024 Miscellaneous Notes RR- VB No. LOF No. CTXS No. Movement: present. Other c/o: No. Medication list reviewed. Physical Exam See Flow Sheet Abd: soft, nontender, gravid Ext: edema: Trace A/P 38w4d Estimated Date of Delivery: 06/27/24 kick counts, labor precautions . The sensitive examination was discussed with the Patient or Patient's Authorized Light Armored Reconnaissance Officer. As applicable, any other physician, advance practice provider, medical student, or other health professional student that will be observing or involved in the sensitive examination for educational or training purposes was discussed with the Patient or Authorized Light Armored Reconnaissance Officer. The Patient or Authorized Light Armored Reconnaissance Officer has agreed to proceed with the sensitive examination. (Sensitive examination includes inspection and/or palpation of the breasts, pelvis, prostate and anorectal regions) Candie Camargo M.D. documented in this encounter [facility] 06-17-2024 Instructions Shantal Teague MA - 06/17/2024 8:29 AM EDT SEQUENTIAL SCREENINGS The [facility] offers sequential screenings for women who are interested in screenings for chromosomal abnormalities and certain defects during a . The sequential screen combines ultrasound and blood tests to determine the risk of chromosomal abnormalities, including Down's Syndrome (Trisomy 21) and Trisomy 18, as well as open neural tube defects including spina bifida. Ultrasound examination is performed between 11 weeks and 13 weeks gestational age. Blood tests are drawn after the ultrasound and again later in the between 15 and 21 weeks gestational age. Please let your physician know if you are interested in this testing. It will require an appointment with our soil field technician. This is not an ultrasound performed by a physician in our office during a routine visit. SIGNS AND SYMPTOMS OF LABOR 1. Contractions every 10 minutes or more often 2. Clear, pink, or brownish fluid (water) leaking from vagina 3. Feeling that baby is pushing down, pressure 4. Low, dull backache 5. Cramps that feel like a period 6. Cramps with or without diarrhea If you notice any of the above symptoms, contact our office at [phone] and ask to speak with a nurse. After hours, you can call doctors registry at [phone] OR call [facility] at [phone] and ask to have the doctor staff weapons officer paged. If you consider this an emergency, dial 9-3-6 or go to your nearest emergency department. NEED HELP? Are you dealing with a violent or abusive relationship? Are you a victim of rape or sexual assult? Call [facility] ([place]) 24 hour Crisis Hotline: 972.235.9445 or 683-403-9480. MANUAL Your Guide to a Healthy manual is now on-line. Visit [email or web address] [email or web address] to download your free copy documented in this encounter [facility] 06-10-2024 Progress note Formatting of t his note might be different from the original. RM- Pt doing well today. Denies Vaginal Bleeding, Leaking fluid, or contractions. Pt reports good movement. Physical Exam See Flow Sheet Abd: soft, nontender, gravid, tiny pink dot rash just above the umbilicus, started last night, itching to only that area denies any changes in soaps or new food Ext: edema: no A/P 37w4d Estimated Date of Delivery: 06/27/24 GBS + reviewed, abx prophylaxis in labor. anemia- on FE f/u weekly labor precautions Call if rash gets worst Betty Espana APRN.FLIGHT COMMUNICATIONS SPECIALIST [facility] 06-10-2024 Miscellaneous Notes RM- Pt doing well today. Denies Vaginal Bleeding, Leaking fluid, or contractions. Pt reports good movement. Physical Exam See Flow Sheet Abd: soft, nontender, gravid, tiny pink dot rash just above the umbilicus, started last night, itching to only that area denies any changes in soaps or new food Ext: edema: no A/P 37w4d Estimated Date of Delivery: 06/27/24 GBS + reviewed, abx prophylaxis in labor. anemia- on FE f/u weekly labor precautions Call if rash gets worst Betty Espana APRN.FLIGHT COMMUNICATIONS SPECIALIST documented in this encounter [facility] 06-10-2024 Instructions Shantal Teague MA - 06/10/2024 10:00 AM EDT SEQUENTIAL SCREENINGS The [facility] offers sequential screenings for women who are interested in screenings for chromosomal abnormalities and certain defects during a . The sequential screen combines ultrasound and blood tests to determine the risk of chromosomal abnormalities, including Down's Syndrome (Trisomy 21) and Trisomy 18, as well as open neural tube defects including spina bifida. Ultrasound examination is performed between 11 weeks and 13 weeks gestational age. Blood tests are drawn after the ultrasound and again later in the between 15 and 21 weeks gestational age. Please let your physician know if you are interested in this testing. It will require an appointment with our soil field technician. This is not an ultrasound performed by a physician in our office during a routine visit. SIGNS AND SYMPTOMS OF LABOR 1. Contractions every 10 minutes or more often 2. Clear, pink, or brownish fluid (water) leaking from vagina 3. Feeling that baby is pushing down, pressure 4. Low, dull backache 5. Cramps that feel like a period 6. Cramps with or without diarrhea If you notice any of the above symptoms, contact our office at [phone] and ask to speak with a nurse. After hours, you can call doctors registry at [phone] OR call [facility] at [phone] and ask to have the doctor staff weapons officer paged. If you consider this an emergency, dial or go to your nearest emergency department. NEED HELP? Are you dealing with a violent or abusive relationship? Are you a victim of rape or sexual assult? Call [facility] ([place]) 24 hour Crisis Hotline: 716.123.5391 or 379-741-7449. MANUAL Your Guide to a Healthy manual is now on-line. Visit [email or web address] [email or web address] to download your free copy documented in this encounter [facility] 06-03-2024 Progress note Formatting of t his note might be different from the original. RR- VB No. LOF No. CTXS No. Movement: present. Other c/o: No. Medication list reviewed. Physical Exam See Flow Sheet Abd: soft, nontender, gravid Ext: edema: no A/P 36w4d Estimated Date of Delivery: 06/27/24 GBS + reviewed, abx prophylaxis in labor. anemia- on FE f/u weekly labor precautions Candie Camargo M.D. [facility] 06-03-2024 Miscellaneous Notes RR- VB No. LOF No. CTXS No. Movement: present. Other c/o: No. Medication list reviewed. Physical Exam See Flow Sheet Abd: soft, nontender, gravid Ext: edema: no A/P 36w4d Estimated Date of Delivery: 06/27/24 GBS + reviewed, abx prophylaxis in labor. anemia- on FE f/u weekly labor precautions Candie Camargo M.D. documented in this encounter [facility] 06-03-2024 Instructions Shantal Teague MA - 06/03/2024 9:16 AM EDT SEQUENTIAL SCREENINGS The [facility] offers sequential screenings for women who are interested in screenings for chromosomal abnormalities and certain defects during a . The sequential screen combines ultrasound and blood tests to determine the risk of chromosomal abnormalities, including Down's Syndrome (Trisomy 21) and Trisomy 18, as well as open neural tube defects including spina bifida. Ultrasound examination is performed between 11 weeks and 13 weeks gestational age. Blood tests are drawn after the ultrasound and again later in the between 15 and 21 weeks gestational age. Please let your physician know if you are interested in this testing. It will require an appointment with our soil field technician. This is not an ultrasound performed by a physician in our office during a routine visit. SIGNS AND SYMPTOMS OF LABOR 1. Contractions every 10 minutes or more often 2. Clear, pink, or brownish fluid (water) leaking from vagina 3. Feeling that baby is pushing down, pressure 4. Low, dull backache 5. Cramps that feel like a period 6. Cramps with or without diarrhea If you notice any of the above symptoms, contact our office at [phone] and ask to speak with a nurse. After hours, you can call doctors registry at [phone] OR call [facility] at [phone] and ask to have the doctor staff weapons officer paged. If you consider this an emergency, dial 7-3-8 or go to your nearest emergency department. NEED HELP? Are you dealing with a violent or abusive relationship? Are you a victim of rape or sexual assult? Call [facility] ([place]) 24 hour Crisis Hotline: 153.304.1243 or 331-769-2070. MANUAL Your Guide to a Healthy manual is now on-line. Visit [email or web address] to download your free copy documented in this encounter [facility] 05-28-2024 Progress note Formatting of t his note might be different from the original. RR- VB No. LOF No. CTXS No. Movement: present. Other c/o: No. Medication list reviewed. The sensitive examination was discussed with the Patient or Patient's Authorized Light Armored Reconnaissance Officer. As applicable, any other physician, advance practice provider, medical student, or other health professional student that will be observing or involved in the sensitive examination for educational or training purposes was discussed with the Patient or Authorized Light Armored Reconnaissance Officer. The Patient or Authorized Light Armored Reconnaissance Officer has agreed to proceed with the sensitive examination. (Sensitive examination includes inspection and/or palpation of the breasts, pelvis, prostate and anorectal regions) Physical Exam See Flow Sheet Abd: soft, nontender, gravid Ext: edema: Trace A/P 35w5d Estimated Date of Delivery: 06/27/24 Labs: GBS done. skin tag right labium would like removed at delivery, very raswonable as it rubs on clothing and gets irritated and scabs over f/u iweekly kick counts brief US confirms vtx d/w her flu/covid and rsv vaccine Candie Camargo M.D. [facility] 05-28-2024 Miscellaneous Notes RR- VB No. LOF No. CTXS No. Movement: present. Other c/o: No. Medication list reviewed. The sensitive examination was discussed with the Patient or Patient's Authorized Light Armored Reconnaissance Officer. As applicable, any other physician, advance practice provider, medical student, or other health professional student that will be observing or involved in the sensitive examination for educational or training purposes was discussed with the Patient or Authorized Light Armored Reconnaissance Officer. The Patient or Authorized Light Armored Reconnaissance Officer has agreed to proceed with the sensitive examination. (Sensitive examination includes inspection and/or palpation of the breasts, pelvis, prostate and anorectal regions) Physical Exam See Flow Sheet Abd: soft, nontender, gravid Ext: edema: Trace A/P 35w5d Estimated Date of Delivery: 06/27/24 Labs: GBS done. skin tag right labium would like removed at delivery, very raswonable as it rubs on clothing and gets irritated and scabs over f/u iweekly kick counts brief US confirms vtx d/w her flu/covid and rsv vaccine Candie Camargo M.D. documented in this encounter [facility] 05-14-2024 Miscellaneous Notes Patient at 33w5d w/o complaints reports ++FM Denies bleeding, lof, ctrx, cramping GTT normal Doing well RTO 2 weeks Sohan Escalante MD documented in this encounter [facility] 05-14-2024 Progress note Formatting of t his note might be different from the original. Patient at 33w5d w/o complaints reports ++FM Denies bleeding, lof, ctrx, cramping GTT normal Doing well RTO 2 weeks Sohan Escalante MD [facility] 04-30-2024 Progress note Formatting of t his note might be different from the original. RR-good fm. no vb/lof. TDAP today f/u in 2 weeks or prn anemia- add fe Candie Camargo MD [facility] 04-30-2024 Miscellaneous Notes RR-good fm. no vb/lof. TDAP today f/u in 2 weeks or prn anemia- add fe Candie Camargo MD documented in this encounter [facility] 04-30-2024 Note HNO ID: [id number] Author: SHANTAL TEAGUE MA Service: ? Author Type: Manager Solar Type: Progress Notes Filed: 04/30/2024 09:39 Note Text: Patient identified by name and date of . Stan Dai presents today for a vaccination of Tdap. Patient denies an allergy to latex: yes Patient denies a severe (life-threatening) allergy to a previous dose of Tdap, DTP, DTaP, DT or Td vaccine. Yes Patient denies history of epilepsy or neurological problems: Yes Patient is afebrile and denies being moderately or severely ill: Yes Patient denies history of Guillain-Hartshorne Syndrome (a severe paralytic illness): Yes Tdap Adacel injection was given without incident. See immunizations for details of immunizations administered today. VIS sheet provided: Yes Provider Dr Camargo was present in office at time of injection. Shantal Teague MA [facility] 04-30-2024 History of Presen t illness Narrative Patient identified by name and date of . Stan Dai presents today for a vaccination of Tdap. Patient denies an allergy to latex: yes Patient denies a severe (life-threatening) allergy to a previous dose of Tdap, DTP, DTaP, DT or Td vaccine. Yes Patient denies history of epilepsy or neurological problems: Yes Patient is afebrile and denies being moderately or severely ill: Yes Patient denies history of Guillain-Hartshorne Syndrome (a severe paralytic illness): Yes Tdap Adacel injection was given without incident. See immunizations for details of immunizations administered today. VIS sheet provided: Yes Provider Dr Camargo was present in office at time of injection. Shantal Teague MA documented in this encounter [facility] 04-30-2024 Instructions Shantal Teague MA - 04/30/2024 8:35 AM EDT SEQUENTIAL SCREENINGS The [facility] offers sequential screenings for women who are interested in screenings for chromosomal abnormalities and certain defects during a . The sequential screen combines ultrasound and blood tests to determine the risk of chromosomal abnormalities, including Down's Syndrome (Trisomy 21) and Trisomy 18, as well as open neural tube defects including spina bifida. Ultrasound examination is performed between 11 weeks and 13 weeks gestational age. Blood tests are drawn after the ultrasound and again later in the between 15 and 21 weeks gestational age. Please let your physician know if you are interested in this testing. It will require an appointment with our soil field technician. This is not an ultrasound performed by a physician in our office during a routine visit. SIGNS AND SYMPTOMS OF LABOR 1. Contractions every 10 minutes or more often 2. Clear, pink, or brownish fluid (water) leaking from vagina 3. Feeling that baby is pushing down, pressure 4. Low, dull backache 5. Cramps that feel like a period 6. Cramps with or without diarrhea If you notice any of the above symptoms, contact our office at [phone] and ask to speak with a nurse. After hours, you can call doctors registry at [phone] OR call [facility] at [phone] and ask to have the doctor staff weapons officer paged. If you consider this an emergency, dial 9--2 or go to your nearest emergency department. NEED HELP? Are you dealing with a violent or abusive relationship? Are you a victim of rape or sexual assult? Call [facility] ([place]) 24 hour Crisis Hotline: 906.795.2571 or 135-257-9099. MANUAL Your Guide to a Healthy manual is now on-line. Visit [email or web address] to download your free copy documented in this encounter [facility] 04-16-2024 Note HNO ID: [id number] Author: JENNIFER ARNOLD RN Service: ? Author Type: Registered Nurse Type: Progress Notes Filed: 04/16/2024 10:59 Note Text: Stan Dai 28 year old is here for her injection of Rhophylac. Stan Dai Antibody Screen (no units) Date Value 12/06/2023 Negative Stan Dai is RH Negative Rhophylac was given without incident. See immunizations for details of immunizations administered today. Provider RR was present in office at time of injection Stan Dai was given her Rhophylac pocket card. eJnnifer Arnold RN [facility] 04-16-2024 History of Presen t illness Narrative Stan Dai 28 year old is here for her injection of Rhophylac. Stan Dai Antibody Screen (no units) Date Value 12/06/2023 Negative Stan Dai is RH Negative Rhophylac was given without incident. See immunizations for details of immunizations administered today. Provider RR was present in office at time of injection Stan Dai was given her Rhophylac pocket card. Jennifer Arnold, RN documented in this encounter [facility] 04-16-2024 Progress note Formatting of t his note might be different from the original. RR- VB No. LOF No. CTXS No. Movement: present. Other c/o: No. Medication list reviewed. Physical Exam See Flow Sheet Abd: soft, nontender, gravid Ext: edema: no A/P 29w5d Estimated Date of Delivery: 06/27/24 Labs: 28 week labs. \Declines larc at delivery, does not plan to use contraception f/u in 2 weeks or prn decliens TDAP today, will consider next visit chilbirth and class information given breast pump rx given rh prophylaxis today note for work restrictions given Candie Camargo M.D. [facility] 04-16-2024 Miscellaneous Notes RR- VB No. LOF No. CTXS No. Movement: present. Other c/o: No. Medication list reviewed. Physical Exam See Flow Sheet Abd: soft, nontender, gravid Ext: edema: no A/P 29w5d Estimated Date of Delivery: 06/27/24 Labs: 28 week labs. \Declines larc at delivery, does not plan to use contraception f/u in 2 weeks or prn decliens TDAP today, will consider next visit chilbirth and class information given breast pump rx given rh prophylaxis today note for work restrictions given Candie Camargo M.D. documented in this encounter [facility] 04-16-2024 Instructions Shantal Teague MA - 04/16/2024 9:34 AM EDT SEQUENTIAL SCREENINGS The [facility] offers sequential screenings for women who are interested in screenings for chromosomal abnormalities and certain defects during a . The sequential screen combines ultrasound and blood tests to determine the risk of chromosomal abnormalities, including Down's Syndrome (Trisomy 21) and Trisomy 18, as well as open neural tube defects including spina bifida. Ultrasound examination is performed between 11 weeks and 13 weeks gestational age. Blood tests are drawn after the ultrasound and again later in the between 15 and 21 weeks gestational age. Please let your physician know if you are interested in this testing. It will require an appointment with our soil field technician. This is not an ultrasound performed by a physician in our office during a routine visit. SIGNS AND SYMPTOMS OF LABOR 1. Contractions every 10 minutes or more often 2. Clear, pink, or brownish fluid (water) leaking from vagina 3. Feeling that baby is pushing down, pressure 4. Low, dull backache 5. Cramps that feel like a period 6. Cramps with or without diarrhea If you notice any of the above symptoms, contact our office at [phone] and ask to speak with a nurse. After hours, you can call [employer] registry at [phone] OR call [facility] at [phone] and ask to have the doctor staff weapons officer paged. If you consider this an emergency, dial [phone] or go to your nearest emergency department. NEED HELP? Are you dealing with a violent or abusive relationship? Are you a victim of rape or sexual assult? Call [facility] ([place]) 24 hour Crisis Hotline: 428.711.8878 or 655-750-8449. MANUAL Your Guide to a Healthy manual is now on-line. Visit [email or web address] to download your free copy documented in this encounter [facility] 03-05-2024 Progress note Formatting of t his note might be different from the original. RR- VB No. LOF No. CTXS No. Movement: present. Other c/o: feels heart rate go up at times but when rests it decreases Medication list reviewed. Physical Exam See Flow Sheet Abd: soft, nontender, gravid Ext: edema: no A/P 23w5d Estimated Date of Delivery: 06/27/24 Labs: 28 week labs next visit d/w her symptomatic measures for constipation f/u in 4 weeks or prn It's a girl! Candie Camargo M.D. [facility] 03-05-2024 Miscellaneous Notes RR- VB No. LOF No. CTXS No. Movement: present. Other c/o: feels heart rate go up at times but when rests it decreases Medication list reviewed. Physical Exam See Flow Sheet Abd: soft, nontender, gravid Ext: edema: no A/P 23w5d Estimated Date of Delivery: 06/27/24 Labs: 28 week labs next visit d/w her symptomatic measures for constipation f/u in 4 weeks or prn It's a girl! Candie Camargo M.D. documented in this encounter [facility] 03-05-2024 Instructions Shantal Teague MA - 03/05/2024 8:33 AM EDT SEQUENTIAL SCREENINGS The [facility] offers sequential screenings for women who are interested in screenings for chromosomal abnormalities and certain defects during a . The sequential screen combines ultrasound and blood tests to determine the risk of chromosomal abnormalities, including Down's Syndrome (Trisomy 21) and Trisomy 18, as well as open neural tube defects including spina bifida. Ultrasound examination is performed between 11 weeks and 13 weeks gestational age. Blood tests are drawn after the ultrasound and again later in the between 15 and 21 weeks gestational age. Please let your physician know if you are interested in this testing. It will require an appointment with our soil field technician. This is not an ultrasound performed by a physician in our office during a routine visit. SIGNS AND SYMPTOMS OF LABOR 1. Contractions every 10 minutes or more often 2. Clear, pink, or brownish fluid (water) leaking from vagina 3. Feeling that baby is pushing down, pressure 4. Low, dull backache 5. Cramps that feel like a period 6. Cramps with or without diarrhea If you notice any of the above symptoms, contact our office at [phone] and ask to speak with a nurse. After hours, you can call doctors registry at [phone] OR call [facility] at [phone] and ask to have the doctor staff weapons officer paged. If you consider this an emergency, dial or go to your nearest emergency department. NEED HELP? Are you dealing with a violent or abusive relationship? Are you a victim of rape or sexual assult? Call [facility] ([place]) 24 hour Crisis Hotline: 885.672.3736 or 275-435-3378. MANUAL Your Guide to a Healthy manual is now on-line. Visit [email or web address] to download your free copy documented in this encounter [facility] 02-25-2024 Note HNO ID: [id number] Author: ?, ?, ? Service: ? Author Type: ? Type: Progress Notes Filed: 02/25/2024 16:21 Note Text: EKG completed and reviewed by [facility] 02-25-2024 History of Presen t illness Narrative EKG completed and reviewed by documented in this encounter [facility] 02-06-2024 Progress note Formatting of t his note might be different from the original. Anatomy ultrasound reviewed. No abnormalities identified. Follow up as clinically indicated. Please place copy in ob chart. Candie Camargo MD [facility] 02-06-2024 Miscellaneous Notes Anatomy ultrasound reviewed. No abnormalities identified. Follow up as clinically indicated. Please place copy in ob chart. Candie Camargo MD documented in this encounter [facility] 02-06-2024 Progress note Formatting of t his note might be different from the original. RR- VB No. LOF No. CTXS No. Movement: present. Other c/o: her watch noted she had a high heart rate over thew eekend. No SOB or cough. Looking back has had episodes in the past year when it was high. No lightheadeness or awareness of hear racing Medication list reviewed. Physical Exam See Flow Sheet Abd: soft, nontender, gravid A/P 19w5d Estimated Date of Delivery: 06/27/24 Labs: AFP .anatomy US done episodes of tachycardia, asymptomatic, check ECG and report to us if symptoms. Monitor for now. Candie Camargo M.D. [facility] 02-06-2024 Miscellaneous Notes RR- VB No. LOF No. CTXS No. Movement: present. Other c/o: her watch noted she had a high heart rate over thew eekend. No SOB or cough. Looking back has had episodes in the past year when it was high. No lightheadeness or awareness of hear racing Medication list reviewed. Physical Exam See Flow Sheet Abd: soft, nontender, gravid A/P 19w5d Estimated Date of Delivery: 06/27/24 Labs: AFP .anatomy US done episodes of tachycardia, asymptomatic, check ECG and report to us if symptoms. Monitor for now. Candie Camargo M.D. documented in this encounter [facility] 01-09-2024 Progress note Formatting of t his note might be different from the original. RR- VB No. LOF No. CTXS No. Movement: absent. Other c/o: some allergy symptoms. Medication list reviewed. Physical Exam See Flow Sheet Gen: no accute distress, well appearing A/P 15w5d Estimated Date of Delivery: 06/27/24 d/w her symptomatic measures for allergies f/u in 4 weeks for ob visit and anatoy US On ASA prophylaxis and PNV Reviewed labs from last visit Candie Camargo M.D. [facility] 01-09-2024 Miscellaneous Notes RR- VB No. LOF No. CTXS No. Movement: absent. Other c/o: some allergy symptoms. Medication list reviewed. Physical Exam See Flow Sheet Gen: no accute distress, well appearing A/P 15w5d Estimated Date of Delivery: 06/27/24 d/w her symptomatic measures for allergies f/u in 4 weeks for ob visit and anatoy US On ASA prophylaxis and PNV Reviewed labs from last visit Candie Camargo M.D. documented in this encounter [facility] 12-06-2023 Miscellaneous Notes RR- VB No. LOF No. CTXS No. Movement: absent. Other c/o: No. Medication list reviewed. Physical Exam See Flow Sheet Abd: soft, nontender A/P 10w6d Estimated Date of Delivery: 06/27/24 Labs: d/w her aneuploidy screening, desires NIPT today and routine PN labs some nausea, no emesis. f/u in 4 weeks or prn ASA prophylaxis recommended Candie Camargo M.D. documented in this encounter [facility] 12-06-2023 Instructions Shantal Teague MA - 12/06/2023 10:29 AM EDT SEQUENTIAL SCREENINGS The [facility] offers sequential screenings for women who are interested in screenings for chromosomal abnormalities and certain defects during a . The sequential screen combines ultrasound and blood tests to determine the risk of chromosomal abnormalities, including Down's Syndrome (Trisomy 21) and Trisomy 18, as well as open neural tube defects including spina bifida. Ultrasound examination is performed between 11 weeks and 13 weeks gestational age. Blood tests are drawn after the ultrasound and again later in the between 15 and 21 weeks gestational age. Please let your physician know if you are interested in this testing. It will require an appointment with our soil field technician. This is not an ultrasound performed by a physician in our office during a routine visit. SIGNS AND SYMPTOMS OF LABOR 1. Contractions every 10 minutes or more often 2. Clear, pink, or brownish fluid (water) leaking from vagina 3. Feeling that baby is pushing down, pressure 4. Low, dull backache 5. Cramps that feel like a period 6. Cramps with or without diarrhea If you notice any of the above symptoms, contact our office at [phone] and ask to speak with a nurse. After hours, you can call doctors registry at [phone] OR call [facility] at [phone] and ask to have the doctor staff weapons officer paged. If you consider this an emergency, dial or go to your nearest emergency department. NEED HELP? Are you dealing with a violent or abusive relationship? Are you a victim of rape or sexual assult? Call [facility] ([place]) 24 hour Crisis Hotline: 638.498.7506 or 740-435-0997. MANUAL Your Guide to a Healthy manual is now on-line. Visit [email or web address] to download your free copy documented in this encounter [facility] 11-07-2023 Note HNO ID: [id number] Author: GORAN HEAD APRN.CNP Service: ? Author Type: Nurse Practitioner Type: Progress Notes Filed: 11/07/2023 09:37 Note Text: OB point of care ultrasound was performed. See imaging tab for details. Goran Head APRN.CNP [facility] 11-07-2023 History of Presen t illness Narrative OB point of care ultrasound was performed. See imaging tab for details. Goran Head APRN.CNP documented in this encounter [facility] 11-06-2023 Note HNO ID: [id number] Author: GORAN HEAD APRN.CNP Service: ? Author Type: Nurse Practitioner Type: Progress Notes Filed: 11/07/2023 09:56 Note Text: Sponge Diver offered: Patient declines. INITIAL OB ASSESSMENT HPI: Stan is a 28 year old White here to establish Obstetrical Care. Patient's last menstrual period was 09/21/2023 (exact date). from OB Dating Form. was planned Complaints: (!) Abdominal pain (cramping); Shortness of breath (one episode) OB History T0 L0 SAB0 IAB0 Ectopic0 Multiple0 Live Births0 Previous history: Prior : never History of 4th degree laceration: No History of shoulder dystocia: No History of Hypertensive disorders including pre-eclampsia or gestational hypertension: No History of gestational diabetes: No Patient's Risk Screening for delivery: Have you had a prior coy between 20w and 36w6d? No How many pregnancies have you had before? 0 Did you have a previous baby with a GBS Infection? No Please select all that apply for any prior : N/A MEDICAL/PSYCHOSOCIAL HISTORY: History of hemorrhage or bleeding concerns: No Thyroid Disease: No History of chronic hypertension: No History of pre-existing diabetes: No No results found for: ABORHD BMI 30.19 kg/(m2) Last Pap: 09/10/2023 History of abnormal pap: No Prior treatment for cervical dysplasia: none. History of STDs: None Partner History of STDs: None Did you have a partner with Herpes? No Tobacco use: No E-Cigarette/Vaping Use: No Caffeine use: No Drug use: No Alcohol use: No Multivitamin with Folic acid: Yes Would refuse blood transfusion if medically necessary: No Social Needs: How often does this describe you? I don't have enough money to pay my bills: Never Within the past 12 months, have you worried that your food would run out before you had money to buy more? Never In the past 12 months, has lack of reliable transportation kept you from going to medical appointments or work, or from getting things needed for daily living? Never In the past 12 months, have you had any concerns about having a place to live, or about the condition or quality of your housing? Never Social History: Do you have any history of depression, anxiety, PTSD, or other mood problems? No Do you have a history of abuse or trauma that may impact your experience? No Are you currently employed? Yes, [employer] Depression/Anxiety Screening: denies symptoms of depression. OB Depression and Anxiety Screening- This Encounter (since 11/06/2023) Over the past 2 weeks have you felt down, depressed, or hopeless? Negative Over the past two weeks, have you felt little interest or pleasure in doing things?? Negative Feeling nervous, anxious or on edge 0-Not at all Not being able to stop or control worrying 0-Not al all Anxiety Pre-Screening Total (If >/= 3 additional questions will be reviewed) 0 Genetic Screening: Partner present: No Patient verbalized knowledge of partner family health history: Yes Do you or your partner have any personal or family history of defects not previously discussed: No Do you have history of a complicated by anomaly, genetic condition, or demise: No ACOG Recommended Screening: Screening for early gestational diabetes testing: Criteria for early testing requires elevated BMI plus one other risk factor: BMI 30.19 kg/(m2) (risk factor if > than 25 or 23 in Americans) Additional risk factors: First-degree relative with diabetes She does meet ACOG criteria for early gestational DM screening. Screening for low dose aspirin use for the prevention of pre-eclampsia: Low dose aspirin should be considered if the patient has one high or two moderate risk factors: High risk factors: None Moderate risk ractors: Nulliparity and Obesity (body mass index greater than 30) She does meet criteria for low dose ASA OB Risk Screening: Completed, no positive findings documented. Marital Status: Partner: Name: Yong Age: 30 Occupation:[employer] Gender: Male PAST MEDICAL HISTORY Diagnosis Date Irregular menstrual cycle Menarche 2006 age 11 NEGATIVE HISTORY OF 10-21-2011 Normal Color Vision PAST SURGICAL HISTORY Procedure Laterality Date LAPAROSCOPY W/RMVL ADNEXAL STRUCTURES Left 12/26/2018 LSO for large atypical appearing cyst Current Outpatient Medications Medication Sig Dispense Refill fluocinolone (SYNALAR) 0.025 % ointment Apply to affected area as directed. apply a pea-sized amount tid x 2 weeks, bid x 2 weeks, daily x 2 weeks then every other day x 2 weeks 30 g 1 vit 21-vyeg-szoou-dha (PRENATE MINI, FERR ASP GLYCIN,) 18-1-350 mg cap Take 1 Dose by mouth once daily. 30 capsule 12 clotrimazole (LOTRIMIN, CLOTRIM) 1 % cream Apply to affected area twice daily. 60 g 1 acetaminophen (TYLE (more content not included)... [facility] 11-06-2023 History of Presen t illness Narrative Sponge Diver offered: Patient declines. INITIAL OB ASSESSMENT HPI: Stan is a 28 year old White here to establish Obstetrical Care. Patient's last menstrual period was 09/21/2023 (exact date). from OB Dating Form. was planned Complaints: (!) Abdominal pain (cramping); Shortness of breath (one episode) OB History T0 L0 SAB0 IAB0 Ectopic0 Multiple0 Live Births0 Previous history: Prior : never History of 4th degree laceration: No History of shoulder dystocia: No History of Hypertensive disorders including pre-eclampsia or gestational hypertension: No History of gestational diabetes: No Patient's Risk Screening for delivery: Have you had a prior coy between 20w and 36w6d? No How many pregnancies have you had before? 0 Did you have a previous baby with a GBS Infection? No Please select all that apply for any prior : N/A MEDICAL/PSYCHOSOCIAL HISTORY: History of hemorrhage or bleeding concerns: No Thyroid Disease: No History of chronic hypertension: No History of pre-existing diabetes: No No results found for: ABORHD BMI 30.19 kg/(m^2) Last Pap: 09/10/2023 History of abnormal pap: No Prior treatment for cervical dysplasia: none. History of STDs: None Partner History of STDs: None Did you have a partner with Herpes? No Tobacco use: No E-Cigarette/Vaping Use: No Caffeine use: No Drug use: No Alcohol use: No Multivitamin with Folic acid: Yes Would refuse blood transfusion if medically necessary: No Social Needs: How often does this describe you? I don't have enough money to pay my bills: Never Within the past 12 months, have you worried that your food would run out before you had money to buy more? Never In the past 12 months, has lack of reliable transportation kept you from going to medical appointments or work, or from getting things needed for daily living? Never In the past 12 months, have you had any concerns about having a place to live, or about the condition or quality of your housing? Never Social History: Do you have any history of depression, anxiety, PTSD, or other mood problems? No Do you have a history of abuse or trauma that may impact your experience? No Are you currently employed? Yes, [employer] Depression/Anxiety Screening: denies symptoms of depression. OB Depression and Anxiety Screening- This Encounter (since 11/06/2023) Over the past 2 weeks have you felt down, depressed, or hopeless? Negative Over the past two weeks, have you felt little interest or pleasure in doing things? Negative Feeling nervous, anxious or on edge 0-Not at all Not being able to stop or control worrying 0-Not al all Anxiety Pre-Screening Total (If >/= 3 additional questions will be reviewed) 0 Genetic Screening: Partner present: No Patient verbalized knowledge of partner family health history: Yes Do you or your partner have any personal or family history of defects not previously discussed: No Do you have history of a complicated by anomaly, genetic condition, or demise: No ACOG Recommended Screening: Screening for early gestational diabetes testing: Criteria for early testing requires elevated BMI plus one other risk factor: BMI 30.19 kg/(m^2) (risk factor if > than 25 or 23 in Americans) Additional risk factors: First-degree relative with diabetes She does meet ACOG criteria for early gestational DM screening. Screening for low dose aspirin use for the prevention of pre-eclampsia: Low dose aspirin should be considered if the patient has one high or two moderate risk factors: High risk factors: None Moderate risk ractors: Nulliparity and Obesity (body mass index greater than 30) She does meet criteria for low dose ASA OB Risk Screening: Completed, no positive findings documented. Marital Status: Partner: Name: Yong Age: 30 Occupation:[employer] Gender: Male PAST MEDICAL HISTORY Diagnosis Date Irregular menstrual cycle Menarche 2006 age 11 NEGATIVE HISTORY OF 10-21-2011 Normal Color Vision PAST SURGICAL HISTORY Procedure Laterality Date LAPAROSCOPY W/RMVL ADNEXAL STRUCTURES Left 12/26/2018 LSO for large atypical appearing cyst Current Outpatient Medications Medication Sig Dispense Refill fluocinolone (SYNALAR) 0.025 % ointment Apply to affected area as directed. apply a pea-sized amount tid x 2 weeks, bid x 2 weeks, daily x 2 weeks then every other day x 2 weeks 30 g 1 vit 47-hhwu-srrcs-[id number] (PRENATE MINI, FERR ASP GLYCIN,) 18-1-350 mg cap Take 1 Dose by mouth once daily. 30 capsule 12 clotrimazole (LOTRIMIN, CLOTRIM) 1 % cream Apply to affected area twice daily. 60 g 1 acetaminophen (TYLENOL) 325 mg tablet Acetaminophen Acetaminophen [Tylenol Tablet] 650 MG PO EVERY 6 HOURS NEEDED PRN For Pain October 07, 2018 Active 10-07-2018 [facility] ([id number]) No current facility-administered medications for this visit. Allergies As of Date: 11/07/2023 Allergen Noted Reaction CECLOR [CEFACLOR] 01/14/2009 Rash LIQUID BANDAGE [DYCLONINE-BENZETH*01/07/2019 Rash and Hives Fully Assessed 11/06/2023 Does patient have penicillin allergy: No REVIEW OF SYSTEMS: GENERAL: Negative for: Fever or Chills HEENT: Negative for: Headache, Impaired Vision, Ringing in Ears, Nosebleeds NECK: Negative for: Swelling, Pain, Stiffness RESPIRATORY: Negative for: Cough, Shortness of breath, Wheezing GASTROINTESTINAL: Negative for: Heartburn, Constipation, Diarrhea, Blood in stool, Vomiting + mild cramping MUSCULOSKELETAL: Negative for: Muscle or joint pain, stiffness, Joint swelling NEUROLOGIC/PSYCHIATRIC: Negative for: Weakness, Paralysis, Numbness, Tingling, Tremor, Anxiety, Depression, Memory loss SKIN: Negative for: Rash, Itching GENITOURINARY: Negative for: vaginal itching, vaginal discharge, hematuria or dysuria PHYSICAL EXAM: BP 116/72 Ht 5' 5 (1.65m) Wt 181 lb 6.4 oz (82.3kg) LMP 09/21/2023 BMI 30.19 kg/(m^2). GENERAL: pleasant in no apparent distress DERMATOLOGY: Normal, without lesions, non-icteric, and non-hirsute NECK: Supple, full range of motion, no adenopathy, and thyroid normal CHEST: Normal inspiratory effort BREAST: soft, non-tender, symmetric, no dominant mass, normal nipple-areolar complex, no lymphadenopathy, and no nipple discharge ABDOMEN: soft, non-tender, and no masses NEURO: alert and oriented x3,exam grossly non-focal PELVIS: External genitalia normal without lesions. Perineal body intact. No cervical lesions. Cervix closed. Uterus <8 week size. No adnexal masses or tenderness. + 0.5 cm skin tag to left labia majora Clinical Pelvimetry: Pelvimetry clinically assessed as adequate Limited OB ultrasound exam: single intrauterine and positive cardiac activity ASSESSMENT: 28 year old at 6w5d wks gestational age PLAN: 1) Patient oriented to practice. Patient given new OB orientation folder. Discussed nutrition, folic acid supplementation, dietary guidelines, exercise, smoking, alcohol, caffeine, and drug use. Discussed gestational weight gain guidelines. Discussed routine OB labs including STD/HIV. Discussed how to access Your guide to a health and the Pick Up. Discussed aneuploidy screening, nuchal translucency/first trimester early anatomy ultrasound and NIPT. The risks/benefits and limitations of NIPT/aneuploidy screening were reviewed including the potential for false negative and false positive results. The availability of genetic counseling was reviewed. Information on aneuploidy screening was provided. The patient chooses to proceed with First trimester early anatomy ultrasound (12-13w6d) Discussed myriad carrier screening. We discussed the availability of professional-society guided carrier screening and reviewed the conditions screened and limitations of screening. The availability of genetic counseling was reviewed. Information on carrier screening was provided. The patient Accepts Discussed hemoglobin electrophoresis. Patient: Declines Reviewed midwifery and sales department supervisor services that are available. 2) Patient offered option of Virtual Visits. Patient unsure. May consider in future. ACTIVE PROBLEM LIST Encounter for Care in First Trimester of First - 11/07/2023 Comment: Care Checklist Vaccines: [ ] Flu vaccine [ ] declined [ ] RSV vaccine 32 07 - 36 02/07 (May - Oct) [ ] declined [ ] COVID vaccine [ ] declined [ ] TDaP 27-36 [ ] declined First trimester: [X] Dating US [ ] 1st tri labs [X] Pap smear UTD [X] Carrier screening [ ] declined [ ] NIPT screening - considering [ ] declined [ ] First trimester anatomy scan - wants [ ] declined [ ] ASA ppx indicated [ ] not indicated [ ] M Power Consult [ ] not indicated [ ] declined Second trimester: [ ] AFP [ ] declined [ ] Anatomy scan [ ] Mode of Delivery - [ ] Feeding - [ ] Pump ordered [ ] Diabetes screen [ ] CBC, RPR Third trimester (28-30 weeks): [ ] Consent [ ] Contraception - [ ] Card Assembler Third trimester (36-40 weeks): [ ] GBS [ ] Presentation - [ ] Scheduled [ ] yes - Hibiclens, pre-op instructions, CBC, T&S ordered [ ] no [ ] H&P Obesity Affecting in First Trimester - 11/07/2023 Comment: Pre BMI 30 Recommend LDA Follow up in 4 weeks or sooner prn. Plan for NT scan between 12w0d and 13w6d gestation. Goran Head APRN.CNP documented in this encounter [facility] 11-06-2023 Instructions Goran Head APRN.CNP - 11/06/2023 4:37 PM EST Please select the following link to access the [facility] Your Guide to a Healthy . [email or web address] What is a Gps Navigation Installer? Midwives in the [place] provide health care services to women of all ages.Gps Navigation Installer means with woman. Midwives partner with women to help make important health decisions. Midwives work with other members of a woman s health care team when needed, but a dental laboratory worker may also be your primary care provider. There are 3 main types of midwives, and there are some differences in the services offered by each type of dental laboratory worker. What types of midwives are there? The 3 main types of midwives in the [place] are: Certified nurse-midwives (CNMs) Have a college degree in nursing and a master s degree in nurse-midwifery. CNMs are registered nurses (RNs) who have graduated from an accredited nurse-midwifery education programand passed a national certification exam. They must have a license to practice midwifery in the state where they work. CNMs work in all health care settings including hospitals, centers, and offices or clinics. CNMs provide general women s health care throughout a woman s lifetime, and they can prescribe most medications. Certified midwives (CMs) Are midwives with a bachelor s degree in a field other than nursing and a master s degree. They have the same midwifery education and pass the same national certification exam as CNMs. CMs must have a license to practice midwifery in the state where they work. CMs provide the same services and work in the same settings as CNMs. Certified professional midwives (CPMs) May have apprenticeship training, or they may graduate from an accredited formal education program. CPMs take a national certification exam that is not the same as the one CNMs and CMs take. The health care services providedbyCPMs are not as broad as those ofCNMsandCMs. CPMs provide , , andpostpartum care for women outside of the hospital--often in centers and homes. CPMs are not able to prescribe most medications, and they do notwork in hospitals. Most of the midwives in the [place] are CNMs. CNMs are licensed in all states. Not all states license CMs and CPMs. What do midwives do? All 3 types of midwives provide care towomen duringpregnancy, labor, , and the postpartumperiod.CNMs and CMs also provide general health services, annual checkups, contraception ( control), menopausal care, and treatment for common infections and health problems. CNMs and CMs care for about one of every 10 womenwho [facility] each [facility].Most of these births are in hospitals.All 3 types of midwives care for women who have their babies in centers or at home, and CNMs and CMs also work in hospitals. Why would I choose a dental laboratory worker for care during my ? Midwives view and as normal life events that can be a healthy time in your life. Midwives are experts in knowing the difference between normal changes that occur and symptoms that require extra attention. Midwives specialize in providing support and education in addition to regular health care. They use evidence-based medical procedures when there is a specific concern for the health of you or your baby, and they work in partnership with physicians who can be available if needed. Midwives offer health care that respects the goals and choices of each individual woman and family. What if I have a high-risk or complication during labor? Your CNM or CM can prescribe medicine, order tests, and provide treatment for common illnesses that you might get during . Midwives work with physicians who specialize in complications of . If you have a medical problem during or complication during labor, your dental laboratory worker will work with a physician tomake sure you get the best and safest care for you and your baby.Midwives do not performsurgery. If you need to have a , the surgery will be done by the physician who works with yourmidwife. Your dental laboratory worker will also work with other health care providers: nurses, social workers, health care coordinator, doulas, childbirth educators, physical therapists, and other specialists to help you get the care you need. What if I want pain medicine during labor? Your dental laboratory worker will help you make decisions about how you are going to cope with your labor. If you want medicine to cope with pain during labor, your dental laboratory worker can help you get medicine that is available in the setting where you give . Midwives also know other ways help women cope with labor such as changing positions or being in a tub of water. These can be helpful in addition to pain medications. Questions to AskWhen Choosing a Gps Navigation Installer for Your Care during and Questions to ask any dental laboratory worker If you work in a group, who will attend my ? Who attends births for you when you are away? What kind of childbirth preparation do you recommend? Do you provide labor support and stay with women throughout labor? How do you feel about doulas or family and friends being with me during labor? Do you allow moving around and eating or drinking during labor? Can I hold my baby right after , breastfeed, and not be ? When do you recommend IVs, heart rate monitoring, Pitocin, or episiotomy? Do you care for women who want a vaginal after a previous ? How much do you charge? Is your care paid for by my insurance? Questions to ask midwives who attend births in homes and centers Am I eligible to give in this setting? What equipment and drugs do you have? How do you handle problems during labor? When would we go to the hospital? Which hospital will I go to if a problem occurs during labor? How will I get there? How often do women in your practice go to the hospital during labor? Do you have a formal agreement with a physician to provide care if problems occur? Would you stay with me if we go to the hospital? Are you trained in resuscitation? Will you visit me at home after my baby is born? For More Information [employer]:What Is a Gps Navigation Installer? [email or web address] [email or web address] Midwives [facility]:What Is a Gps Navigation Installer? [email or web address] worker Childbirth Connection: Choosing a Caregiver http://www.childbirthconnection. org/article.asp?LqmudprRncv=915& la=53809&area=27 Our Bodies, Ourselves: Choosing a Maternity Care Provider [email or web address]-[email or web address]/ Please select the following link to access the [facility] Your Guide to a Healthy . [email or web address] documented in this encounter [facility] 09-06-2023 Note HNO ID: [id number] Author: NICOLE VELASQUEZ RDMS Service: ? Author Type: [place] Actor Type: Progress Notes Filed: 09/06/2023 16:31 Note Text: Radiology Service Progress Note PATIENT NAME: Stan Dai DATE OF SERVICE: September 06, 2023 TIME: 4:31 PM PATIENT IDENTITY VERIFICATION COMPLETED USING TWO (2) [...] PERIPHERAL IV DATA: Not applicable SIGNED BY: iNcole Velasquez RDMS September 06, 2023 4:31 PM [facility] 09-05-2023 Note HNO ID: [id number] Author: Candie Camargo MD Service: ? Author Type: Physician Type: Progress Notes Filed: 09/05/2023 3:15 PM Note Text: Stan Dai is a 28 year old female who presents for problem visit for some pelvic and urinary symptoms. HPI: 28 YOF seen in ED last week for pelvic pressure, frequency of urination, incontinence x 2 and dysuria. Took 3 days of bactrim, no culture sent and symptoms improved but not resolved. Last menses was a little different for her but only lasted 3 days. Now having menstrual type cramping 5/10 and using ibuprofen prn. No abnormal vaginal discharge/ Some vulvar irritation. Pain more in the middle. Patient has not been preventing . Has been attempting since February 2023. Has not had any success. Neither she nor her partner have any medical issues or surgeries in the past that should limit fertility other than patient had an oophorectomy for large ovarian cyst in the past. She had no evidence of endometriosis or tubal damage at that time. OB History T0 L0 SAB0 IAB0 Ectopic0 Multiple0 Live Births0 Wire Stockkeeper History LMP: 08/21/2023 (Exact Date), Having periods Age at Menarche: Age at First : Age at Menopause: Wire Stockkeeper History Comments: Sexual Activity: Yes; No partner [...] cream Apply to affected area twice daily. Ibuprofen 200 mg cap 400 mg. acetaminophen (TYLENOL) 325 mg tablet Acetaminophen Acetaminophen [Tylenol Tablet] 650 MG PO EVERY 6 HOURS NEEDED PRN For Pain October 07, 2018 Active 10-07-2018 [facility] ([id number]) SUMAtriptan (IMITREX) 50 mg tablet Take 1 tablet by mouth at onset of migraine, may take again in 2 hours if necessary. (Patient not taking: Reported on 08/30/2023) No current facility-administered medications for this visit. Allergies As of Date: 09/05/2023 Allergen Noted Reaction CECLOR [CEFACLOR] 01/14/2009 Rash LIQUID BANDAGE [DYCLONINE-BENZETH*01/07/2019 Rash and Hives Fully Assessed 09/05/2023 REVIEW OF SYSTEMS Abdomen: No bloating, early satiety, indigestion, or increased flatulence. No abdominal pain, nausea, vomiting, diarrhea, or Allergies and current medication updated:Yes EXAM: BP 112/78 Wt 177 lb (80.3kg) LMP 08/21/2023 GENERAL: pleasant, female in no apparent distress ABDOMEN: soft, non-tender, no masses, Mild tenderness in suprapubic area, rebound Absent, and guarding Absent PELVIC: normal Bartholin's glands, urethra, Mcnair's glands, no vulvar lesions, no cervical lesions, good vaginal support, physiologic discharge present, normal appearing perineal body and perianal region, External genitalia around the posterior fourchette and perineal area shows thin papery white skin with hypopigmentation. Some sleep hypopigmentation at the vaginal introitus at 6:00. No obvious periclitoral or periurethral hypopigmentation. There is no hyperpigmentation. There are no fissures or ulcerations. No erythema. BIMANUAL: uterus normal size, shape and consistency, no adnexal masses, and non-tender ASSESSMENT AND PLAN: Encounter Diagnosis ICD-10-CM 1. Pelvic pain in female R10.2 Discussed with patient uncertain etiology of her pain. Check pelvic ultrasound. Continue NSAIDs as needed. Check urine culture as well to be thorough. Vulvar pruritus and focal pigmentation of the vulva. I discussed with the patient I think most of her urinary and vulvar irritation symptoms are more due to what appears to be lichen sclerosis. There is hypopigmentation of the vulva. Discussed with her chronic recurring nature of this. Will recommend a vulvar biopsy but for now we will treat with steroid taper and return in 6 weeks for biopsy and assess how she is doing. Patient is comfortable with this plan. Preconceptual counseling. I discussed with the patient recommend that she start a vitamin. We discussed this shivani healthy lifestyle and general recommendations regarding preconceptual counseling. Offered carrier screening. She will contact the office if she would like to proceed with this. vitamin prescription. Routine pap due, done today revie (more content not included)... [facility] 08-30-2023 Note HNO ID: [id number] Author: Catina Chavez APRN.FLIGHT COMMUNICATIONS SPECIALIST Service: ? Author Type: Nurse Practitioner Type: Progress Notes Filed: 08/30/2023 5:56 PM Note Text: This note was created using NoteWriter. Subjective Stan Dai is a 28 year old female. 28 year old female with PMH ovarian cyst presents for possible UTI Acute onset 4 days ago +urgency +lower abdominal pain severe +nausea Denies fever or chills. She is sexually active, and attempting to conceive LMP- 08/21/ through 08/26/23 but endorses it was abnormal compared to others History of ovarian cyst with x 1 ovary removed She further endorses that she has been experiencing bouts of feeling as though she is going to pass out. The history is provided by the patient. No ui architect was used. Abdominal Pain This is a new problem. The current episode started more than 2 days ago. The problem occurs constantly. The problem has been gradually worsening. The pain is located in the LLQ and RLQ. The pain is at a severity of 8/10. The pain is moderate. Associated symptoms include frequency. Pertinent negatives include arthralgias. Nothing aggravates the symptoms. Nothing relieves the symptoms. PAST MEDICAL HISTORY Diagnosis Date Irregular menstrual cycle Menarche 2006 age 11 NEGATIVE HISTORY OF 10-21-2011 Normal Color Vision PAST SURGICAL HISTORY Procedure Laterality Date LAPAROSCOPY W/RMVL ADNEXAL STRUCTURES Left 12/26/2018 LSO for large atypical appearing cyst ALLERGIES Ceclor [Cefaclor], Environmental [Other], and Liquid Bandage [Dyclonine-Benzethonium] MEDICATIONS clotrimazole (LOTRIMIN, CLOTRIM) 1 % cream Apply to affected area twice daily. Ibuprofen 200 mg cap 400 mg. acetaminophen (TYLENOL) 325 mg tablet Acetaminophen Acetaminophen [Tylenol Tablet] 650 MG PO EVERY 6 HOURS NEEDED PRN For Pain October 07, 2018 Active 10-07-2018 [facility] ([id number]) SUMAtriptan (IMITREX) 50 mg tablet Take 1 tablet by mouth at onset of migraine, may take again in 2 hours if necessary. (Patient not taking: Reported on 08/30/2023) FAMILY HISTORY Problem Relation Age of Onset No Known Problems Mother Heart Father Stent - 09/2007 Cervical Cancer Maternal Grandmother Cancer Paternal Grandfather Social History Tobacco Use Smoking status: Never Smokeless tobacco: Never Vaping Use Vaping Use: Never used Substance Use Topics Alcohol use: No Drug use: No Review of Systems Respiratory: Negative for apnea, cough, choking and chest tightness. Cardiovascular: Negative for chest pain, palpitations and leg swelling. Gastrointestinal: Positive for abdominal pain. Genitourinary: Positive for frequency. Musculoskeletal: Negative for arthralgias, back pain and gait problem. Skin: Negative for color change, pallor, rash and wound. Hematological: Negative for adenopathy. Does not bruise/bleed easily. Psychiatric/Behavioral: Negative for agitation and behavioral problems. Objective BP 132/80 Pulse 89 Temp 37.2 ?C (98.9 ?F) Resp 16 Wt 81.6 kg (179 lb 12.8 oz) LMP 08/21/2023 (Exact Date) SpO2 98% BMI 29.92 kg/m? Physical Exam Vitals and nursing note reviewed. Constitutional: General: She is not in acute distress. Appearance: Normal appearance. She is normal weight. She is not ill-appearing, toxic-appearing or diaphoretic. HENT: Head: Normocephalic and atraumatic. Right Ear: Ear canal and external ear normal. Left Ear: Ear canal and external ear normal. Nose: Nose normal. No congestion or rhinorrhea. Mouth/Throat: Mouth: Mucous membranes are moist. Pharynx: No oropharyngeal exudate or posterior oropharyngeal erythema. Eyes: General: Right eye: No discharge. Left eye: No discharge. Extraocular Movements: Extraocular movements intact. Conjunctiva/sclera: Conjunctivae normal. Pupils: Pupils are equal, round, and reactive to light. Cardiovascular: Rate and Rhythm: Normal rate and regular rhythm. Pulses: Normal pulses. Heart sounds: Normal heart sounds. No murmur heard. No friction rub. Pulmonary: Effort: Pulmonary effort is normal. No respiratory distress. Breath sounds: Normal breath sounds. No stridor. No wheezing, rhonchi or rales. Chest: Chest wall: No tenderness. Abdominal: General: Abdomen is flat. There is no distension. Palpations: Abdomen is soft. There is no mass. Tenderness: There is abdominal tenderness (lower abdominal TTP bilaterally). There is no right CVA tenderness, left CVA tenderness, guarding or rebound. Hernia: No hernia is present. Musculoskeletal: General: No swelling, tenderness, deformity or signs of injury. Normal range of motion. Cervical back: Normal range of motion and neck supple. No rigidity. Right lower leg: No edema. Left lower leg: No edema. Lymphadenopathy: Cervical: No cervical adenopathy. Skin: General: Skin is warm and dry. Coloration: Skin is not jaundiced o (more content not included)... [facility] 05-23-2023 Miscellaneous Notes Patient notified of results and provider's instructions. [...] others. Return to work letter sent via [employer]. documented in this encounter [facility] 05-22-2023 History of Presen t illness Narrative Chief Complaint Patient presents with: Abdominal Pain Ear Problem Cough Sinus Problem Dizziness Diarrhea: Onset Sunday HPI Stan Dai is a 27 year old female who [...] not tested for COVID thus far. LMP 9. Does not think she is currently , [...] For Pain October 07, 2018 Active 10-07-2018 [facility] ([id number]) No current facility-administered medications on file prior [...] Miko Walker MD documented in this encounter [facility] 08-09-2022 History of Presen t illness Narrative Radiology Service Progress Note PATIENT NAME: Stan Dai DATE OF SERVICE: August 09, 2022 TIME: [...] 2022 9:10 AM documented in this encounter [facility] 10-21-2011 History of Past i llness Narrative Problem Noted Date Diagnosed Date Resolved Date Arm edema 10/21/2011 03/29/2015 Shoulder pain 06/30/2009 03/29/2015 documented as of this encounter (statuses as of 05/22/2023) [facility] History of Past illness Narrative* Problem Noted Date Diagnosed Date Resolved Date Arm edema 10/21/2011 03/29/2015 Shoulder pain 06/30/2009 03/29/2015 documented as of this encounter (statuses as of 05/23/2023) [facility] History of Past illness Narrative* Problem Noted Date Diagnosed Date Resolved Date Arm edema 10/21/2011 03/29/2015 Shoulder pain 06/30/2009 03/29/2015 documented as of this encounter (statuses as of 07/08/2023) [facility] History of Past illness Narrative* Problem Noted Date Diagnosed Date Resolved Date Arm edema 10/21/2011 03/29/2015 Shoulder pain 06/30/2009 03/29/2015 documented as of this encounter (statuses as of 11/07/2023) [facility] History of Past illness Narrative* Problem Noted Date Diagnosed Date Resolved Date Arm edema 10/21/2011 03/29/2015 Shoulder pain 06/30/2009 03/29/2015 documented as of this encounter (statuses as of 11/07/2023) [facility] History of Past illness Narrative* Problem Noted Date Diagnosed Date Resolved Date Arm edema 10/21/2011 03/29/2015 Shoulder pain 06/30/2009 03/29/2015 documented as of this encounter (statuses as of 12/06/2023) [facility] History of Past illness Narrative* Problem Noted Date Diagnosed Date Resolved Date Arm edema 10/21/2011 03/29/2015 Shoulder pain 06/30/2009 03/29/2015 documented as of this encounter (statuses as of 12/19/2023) [facility] note* Diagnosis Suspected COVID-19 virus infection- Primary Encounter for test, result unknown [facility] Diagnosis Acute abdominal pain Abdominal pain, unspecified site [facility] Diagnosis Encounter for care in first trimester of first - Primary 6 weeks gestation of state, incidental [facility] Diagnosis Encounter for care in first trimester of first - Primary 6 weeks gestation of state, incidental Obesity affecting in first trimester, unspecified obesity type [facility] Diagnosis Encounter for care in first trimester of first - Primary 10 weeks gestation of state, incidental [facility] Diagnosis Encounter for (NT) nuchal translucency scan- Primary Other specified screening 12 weeks gestation of state, incidental [facility] Diagnosis Encounter for supervision of normal first in second trimester- Primary Supervision of normal first 15 weeks gestation of state, incidental [facility] Diagnosis Encounter for supervision of normal first in second trimester- Primary Supervision of normal first 19 weeks gestation of state, incidental Tachycardia Tachycardia, unspecified [facility] Diagnosis Encounter for anatomic survey- Primary 19 weeks gestation of state, incidental Obesity affecting in second trimester, unspecified obesity type [facility] Diagnosis Encounter for supervision of normal first in second trimester Supervision of normal first Tachycardia Tachycardia, unspecified [facility] Diagnosis 23 weeks gestation of - Primary state, incidental Encounter for supervision of normal first in second trimester Supervision of normal first [facility] Diagnosis Encounter for supervision of normal first in third trimester- Primary Supervision of normal first 29 weeks gestation of state, incidental Encounter for care in first trimester of first Rh negative state in antepartum period Rhesus isoimmunization affecting management of mother, antepartum condition [facility] Diagnosis 31 weeks gestation of - Primary state, incidental Encounter for supervision of normal first in third trimester Supervision of normal first Need for vaccination Need for prophylactic vaccination and inoculation against unspecified single disease Anemia complicating , third trimester [facility] Diagnosis 33 weeks gestation of - Primary state, incidental [facility] Diagnosis 35 weeks gestation of - Primary state, incidental Anemia complicating , third trimester Vulvar skin tag Other specified noninflammatory disorder of vulva and perineum Encounter for care in first trimester of first Encounter for prophylactic immunotherapy for respiratory syncytial virus (RSV) [facility] Diagnosis Encounter for supervision of normal first in third trimester- Primary Supervision of normal first 36 weeks gestation of state, incidental Anemia complicating , third trimester GBS (group B Streptococcus carrier), +RV culture, currently Supervision of other high-risk [facility] Diagnosis Encounter for supervision of normal first in third trimester- Primary Supervision of normal first Anemia complicating , third trimester GBS (group B Streptococcus carrier), +RV culture, currently Supervision of other high-risk 37 weeks gestation of state, incidental Encounter for care in first trimester of first [facility] Diagnosis Encounter for supervision of normal first in third trimester- Primary Supervision of normal first Anemia complicating , third trimester 38 weeks gestation of state, incidental [facility] Diagnosis 39 weeks gestation of - Primary state, incidental Encounter for supervision of normal first in third trimester Supervision of normal first [facility] Diagnosis Encounter for supervision of normal first in third trimester- Primary Supervision of normal first 39 weeks gestation of state, incidental Anemia complicating , third trimester GBS (group B Streptococcus carrier), +RV culture, currently Supervision of other high-risk False labor before 37 completed weeks of gestation, third trimester documented in this encounter [facility] for referral (narrative)* Diagnostic Procedure Only (Routine) - Closed Specialty Diagnoses / Procedures Referred By Contac t Referred To Contact [facility] Diagnoses Acute abdominal pain Procedures PELVIC US WHI US PELVIC NONOBSTETRIC REAL-TIME IMAGE COMPLETE Candie Camargo MD [address] [place] [address] [address] Referral ID Status Reason Start Date Expiration Date V isits Requested Visits Authorized [id number] Closed Auto-Generate d Referral 07/26/2022 07/26/2023 1 1 * Diagnostic Procedure Only (Routine) - Closed Specialty Diagnoses / Procedures Referred By Contac t Referred To Contact US IMAGING Diagnoses Acute abdominal pain Procedures US FEMALE PELVIS TRANSVAG US TRANSVAGINAL Candie Camargo MD [address] [place] [address] Us Imaging [facility] Referral ID Status Reason Start Date Expiration Date V isits Requested Visits Authorized [id number] Closed Auto-Generate d Referral 07/26/2022 08/25/2023 1 1 [facility] for referral (narrative)* Diagnostic Procedure Only (Routine) - Authorized Specialty Diagnoses / Procedures Referred By Contac t Referred To Contact [facility] Diagnoses Encounter for care in first trimester of first 6 weeks gestation of Procedures NUCHAL TRANSLUCENCY WHI US NUCHAL TRANSLUCENCY 1ST GESTATION Goran Head APRN.CNP [address] [place] [address] [id number] [place] [address] Referral ID Status Reason Start Date Expiration Date Visits Requested Visits Authorized [id number] Authorized Auto-Generat ed Referral 11/07/2023 11/06/2024 1 1 [facility] for referral (narrative)* Diagnostic Procedure Only (Routine) - Pending Review Specialty Diagnoses / Procedures Referred By Contac t Referred To Contact [facility] Diagnoses 15 weeks gestation of Encounter for supervision of normal first in second trimester Procedures OBSTETRIC ULTRASOUND WHI US PREG UTERUS AFTER 1ST TRIMEST GESTATION Candie Camargo MD [address] [place] [address] [facility] [address] [place] [address] Referral ID Status Reason Start Date Expiration Date Visits Requested Visits Authorized [id number] Pending Review Auto-Generat ed Referral 01/09/2024 01/08/2025 1 1 T [facility] for referral (narrative)* Outpatient Procedure (Routine) - Authorized Specialty Diagnoses / Procedures Referred By Contac t Referred To Contact [facility] Diagnoses Encounter for supervision of normal first in second trimester Tachycardia Procedures ECG COMPLETE ECG ROUTINE ECG W/LEAST 12 LDS W/I&R Candie Camargo MD [address] [place] [address] [facility] [address] [place] [address] Referral ID Status Reason Start Date Expiration Date Visits Requested Visits Authorized [id number] Authorized Auto-Generat ed Referral 02/06/2024 02/05/2025 1 1 T [facility] Summary Purpose Family History No Family History Records FoundNo Family History Records Found Advance Directives No Advanced Directives Records FoundNo Advanced Directives Records Found Health Concerns Infection Onset Date Last Indicated Resolved Time COVID-19 Confirmed 05/22/2023 05/22/2023 Problem Noted Date Diagnosed Date [facility] Education - [facility]ON 11/06/2023 Education - [place] 11/06/2023 Problem Noted Date Diagnosed Date [facility] Education - [place]ON 11/06/2023 Education - [place] 11/06/2023 Active Problems Noted Date Diagnosed Date [facility] Education - COMMON 11/06/2023 Education - [place] 11/06/2023 Additional Source Comments INFORMATION SOURCE (unrecogn ized section and content) DATE CREATED AUTHOR 10/23/2018 [facility] DATE CREATED AUTHOR AUTHOR'S TIAN ATFRAN 06/24/2024 [facility] Source Comments (unrecognize d section and content) In the event this informatio n is protected by the Federal Confidentiality of Alcohol and Drug Abuse Patient Records regulations: The Federal rules restrict any use of the information to criminally investigate or prosecute any alcohol or drug abuse patient.[facility] the event this information is protected by the Federal Confidentiality of Alcohol and Drug Abuse Patient Records regulations: The Federal rules restrict any use of the information to criminally investigate or prosecute any alcohol or drug abuse patient.[facility] the event this information is protected by the Federal Confidentiality of Alcohol and Drug Abuse Patient Records regulations: The Federal rules restrict any use of the information to criminally investigate or prosecute any alcohol or drug abuse patient.[facility] the event this information is protected by the Federal Confidentiality of Alcohol and Drug Abuse Patient Records regulations: The Federal rules restrict any use of the information to criminally investigate or prosecute any alcohol or drug abuse patient.[facility] the event this information is protected by the Federal Confidentiality of Alcohol and Drug Abuse Patient Records regulations: The Federal rules restrict any use of the information to criminally investigate or prosecute any alcohol or drug abuse patient.[facility] the event this information is protected by the Federal Confidentiality of Alcohol and Drug Abuse Patient Records regulations: The Federal rules restrict any use of the information to criminally investigate or prosecute any alcohol or drug abuse patient.[facility] the event this information is protected by the Federal Confidentiality of Alcohol and Drug Abuse Patient Records regulations: The Federal rules restrict any use of the information to criminally investigate or prosecute any alcohol or drug abuse patient.[facility] the event this information is protected by the Federal Confidentiality of Alcohol and Drug Abuse Patient Records regulations: The Federal rules restrict any use of the information to criminally investigate or prosecute any alcohol or drug abuse patient.[facility] the event this information is protected by the Federal Confidentiality of Alcohol and Drug Abuse Patient Records regulations: The Federal rules restrict any use of the information to criminally investigate or prosecute any alcohol or drug abuse patient.[facility] the event this information is protected by the Federal Confidentiality of Alcohol and Drug Abuse Patient Records regulations: The Federal rules restrict any use of the information to criminally investigate or prosecute any alcohol or drug abuse patient.[facility] the event this information is protected by the Federal Confidentiality of Alcohol and Drug Abuse Patient Records regulations: The Federal rules restrict any use of the information to criminally investigate or prosecute any alcohol or drug abuse patient.[facility]In the event this information is protected by the Federal Confidentiality of Alcohol and Drug Abuse Patient Records regulations: The Federal rules restrict any use of the information to criminally investigate or prosecute any alcohol or drug abuse patient.[facility] the event this information is protected by the Federal Confidentiality of Alcohol and Drug Abuse Patient Records regulations: The Federal rules restrict any use of the information to criminally investigate or prosecute any alcohol or drug abuse patient.[facility] the event this information is protected by the Federal Confidentiality of Alcohol and Drug Abuse Patient Records regulations: The Federal rules restrict any use of the information to criminally investigate or prosecute any alcohol or drug abuse patient.[facility]In the event this information is protected by the Federal Confidentiality of Alcohol and Drug Abuse Patient Records regulations: The Federal rules restrict any use of the information to criminally investigate or prosecute any alcohol or drug abuse patient.[facility]In the event this information is protected by the Federal Confidentiality of Alcohol and Drug Abuse Patient Records regulations: The Federal rules restrict any use of the information to criminally investigate or prosecute any alcohol or drug abuse patient.[facility] HospitalIn the event this information is protected by the Federal Confidentiality of Alcohol and Drug Abuse Patient Records regulations: The Federal rules restrict any use of the information to criminally investigate or prosecute any alcohol or drug abuse patient.[facility] HospitalIn the event this information is protected by the Federal Confidentiality of Alcohol and Drug Abuse Patient Records regulations: The Federal rules restrict any use of the information to criminally investigate or prosecute any alcohol or drug abuse patient.[facility] HospitalIn the event this information is protected by the Federal Confidentiality of Alcohol and Drug Abuse Patient Records regulations: The Federal rules restrict any use of the information to criminally investigate or prosecute any alcohol or drug abuse patient.[facility] HospitalIn the event this information is protected by the Federal Confidentiality of Alcohol and Drug Abuse Patient Records regulations: The Federal rules restrict any use of the information to criminally investigate or prosecute any alcohol or drug abuse patient.[facility]In the event this information is protected by the Federal Confidentiality of Alcohol and Drug Abuse Patient Records regulations: The Federal rules restrict any use of the information to criminally investigate or prosecute any alcohol or drug abuse patient.[facility]In the event this information is protected by the Federal Confidentiality of Alcohol and Drug Abuse Patient Records regulations: The Federal rules restrict any use of the information to criminally investigate or prosecute any alcohol or drug abuse patient.[facility] Reason for Visit (unrecogniz ed section and content) Reason Onset Date Comments Care 06/24/2024 Specialty Diagnoses / Procedures Referred By Contac t Referred To Contact Mechanic Helper / SENIOR APPLICATIONS DEVELOPER Diagnoses Pelvic pain pelvic pain Procedures OFFICE/OUTPATIENT ESTABLISHED HIGH MDM 40 MIN OFFICE/OUTPATIENT EST PT MAY NOT REQ PHYS/QHP EST WHI PATIENT Self Raman, Candie L, MD [address] [place] [address] Referral ID Status Reason Start Date Expiration Date V isits Requested Visits Authorized [id number] Authorized 09/05/2023 09/02/2024 99 99 Reason Onset Date Comments Care 06/23/2024 Reason Onset Date Comments Care 06/17/2024 Reason Onset Date Comments Care 06/10/2024 Reason Onset Date Comments Care 06/03/2024 Reason Onset Date Comments Care 04/30/2024 Reason Onset Date Comments Care 04/16/2024 Reason Onset Date Comments Care 03/05/2024 Reason Comments US Reason Comments Abdominal Pain Ear Problem Cough Sinus Problem Dizziness Diarrhea Onset Sunday Specialty Diagnoses / Procedures Referred By Contac t Referred To Contact Family Medicine / FAMILY MEDICINE Diagnoses Sinus infection sinus infection Procedures OFFICE/OUTPATIENT ESTABLISHED MOD MDM 30-39 MIN 4C EST Miko Walker MD [address] [place] [address] Miko Walker MD [address] [place] [address] Referral ID Status Reason Start Date Expiration Date Visits Re quested Visits Authorized [id number] Closed 05/22/2023 09/02/2023 1 1 Reason Comments Results Reason Comments Radiology US Specialty Diagnoses / Procedures Referred By Contac t Referred To Contact US IMAGING Diagnoses Acute abdominal pain Procedures US FEMALE PELVIS TRANSVAG US TRANSVAGINAL Candie Camargo MD [address] [place] [address] [place] [address] Referral ID Status Reason Start Date Expiration Date V isits Requested Visits Authorized [id number] Closed Auto-Generate d Referral 07/26/2022 08/25/2023 1 1 Specialty Diagnoses / Procedures Referred By Contac t Referred To Contact Mechanic Helper / SENIOR APPLICATIONS DEVELOPER Diagnoses poc u/s read Procedures OB ULTRASOUND POC Goran Head APRN.FLIGHT COMMUNICATIONS SPECIALIST [address] [place] [address] Goran Head APRN.FLIGHT COMMUNICATIONS SPECIALIST [address] [place] [address] Referral ID Status Reason Start Date Expiration Date Visits Re quested Visits Authorized [id number] Closed 11/07/2023 02/05/2024 1 1 Reason Comments Initial OB Visit Specialty Diagnoses / Procedures Referred By Contac t Referred To Contact Mechanic Helper / SENIOR APPLICATIONS DEVELOPER Diagnoses Pelvic pain pelvic pain Procedures OFFICE/OUTPATIENT ESTABLISHED HIGH MDM 40 MIN OFFICE/OUTPATIENT EST PT MAY NOT REQ PHYS/QHP EST WHI PATIENT Self Candie Camargo MD [address] [place] [address] Reason Onset Date Comments Care 12/06/2023 Specialty Diagnoses / Procedures Referred By Contac t Referred To Contact [facility] Diagnoses Encounter for care in first trimester of first 6 weeks gestation of Procedures NUCHAL TRANSLUCENCY WHI US NUCHAL TRANSLUCENCY 1ST GESTATION Goran Head, BATCH OR CONTINUOUS STILL OPERATOR.FLIGHT COMMUNICATIONS SPECIALIST [address] [place] [address] [facility] [address] [place] [address] Referral ID Status Reason Start Date Expiration Date V isits Requested Visits Authorized [id number] Closed Auto-Generate d Referral 11/07/2023 11/06/2024 1 1 Reason Comments Nurse Visit EKG per OB Dr.Rebecc omar Camargo M.d. Specialty Diagnoses / Procedures Referred By Contac t Referred To Contact [facility] Diagnoses Encounter for supervision of normal first in second trimester Tachycardia Procedures ECG COMPLETE ECG ROUTINE ECG W/LEAST 12 LDS W/I&R Candie Camargo MD [address] [place] [address] [facility] [address] [place] [address] Referral ID Status Reason Start Date Expiration Date V isits Requested Visits Authorized [id number] Closed Auto-Generate d Referral 02/06/2024 02/05/2025 1 1 Reason Comments Contractions Care Teams (unrecognized sec tion and content) Production Operator Relationship Specialty Start Date End Date [facility], BATCH OR CONTINUOUS STILL OPERATOR.FLIGHT COMMUNICATIONS SPECIALIST [address] [place] [address] PCP - General Family Medicine 08/31/20 Production Operator Relationship Specialty Start Date End Date [facility] HospitalMarilynCoco, BATCH OR CONTINUOUS STILL OPERATOR.FLIGHT COMMUNICATIONS SPECIALIST [address] [place] [address] PCP - General Family Medicine 08/31/20 Production Operator Relationship Specialty Start Date End Date [facility] HospitalCoco, BATCH OR CONTINUOUS STILL OPERATOR.FLIGHT COMMUNICATIONS SPECIALIST [address] [place] [address] PCP - General Family Medicine 08/31/20 Production Operator Relationship Specialty Start Date End Date [facility] HospitalMarilynCoco, BATCH OR CONTINUOUS STILL OPERATOR.FLIGHT COMMUNICATIONS SPECIALIST [address] [place] [address] PCP - General Family Medicine 08/31/20 Production Operator Relationship Specialty Start Date End Date [facility] HospitalCesiaah, BATCH OR CONTINUOUS STILL OPERATOR.FLIGHT COMMUNICATIONS SPECIALIST [address] [place] [address] PCP - General Family Medicine 08/31/20 Production Operator Relationship Specialty Start Date End Date [facility] HospitalMarilynCoco, BATCH OR CONTINUOUS STILL OPERATOR.FLIGHT COMMUNICATIONS SPECIALIST [address] [place] [address] PCP - General Family Medicine 08/31/20 Production Operator Relationship Specialty Start Date End Date [facility] HospitalCoco, BATCH OR CONTINUOUS STILL OPERATOR.FLIGHT COMMUNICATIONS SPECIALIST [address] [place] [address] PCP - General Family Medicine 08/31/20 Production Operator Relationship Specialty Start Date End Date [facility] HospitalC[facility]iaah, BATCH OR CONTINUOUS STILL OPERATOR.FLIGHT COMMUNICATIONS SPECIALIST [address] [place] [address] PCP - General Family Medicine 08/31/20 Production Operator Relationship Specialty Start Date End Date [facility] HospitalC[facility], BATCH OR CONTINUOUS STILL OPERATOR.FLIGHT COMMUNICATIONS SPECIALIST [address] [place] [address] PCP - General Family Medicine 08/31/20 Production Operator Relationship Specialty Start Date End Date [facility] HospitalCoco, BATCH OR CONTINUOUS STILL OPERATOR.FLIGHT COMMUNICATIONS SPECIALIST [address] [place] [address] PCP - General Family Medicine 08/31/20 Production Operator Relationship Specialty Start Date End Date [facility] HospitalCoco, BATCH OR CONTINUOUS STILL OPERATOR.FLIGHT COMMUNICATIONS SPECIALIST [address] [place] [address] PCP - General Family Medicine 08/31/20 Production Operator Relationship Specialty Start Date End Date [facility] HospitalC[facility], BATCH OR CONTINUOUS STILL OPERATOR.FLIGHT COMMUNICATIONS SPECIALIST [address] [place] [address] PCP - General Family Medicine 08/31/20 Production Operator Relationship Specialty Start Date End Date [facility] HospitalCesiaah, BATCH OR CONTINUOUS STILL OPERATOR.FLIGHT COMMUNICATIONS SPECIALIST [address] [place] [address] PCP - General Family Medicine 08/31/20 Production Operator Relationship Specialty Start Date End Date GerardoCoco, BATCH OR CONTINUOUS STILL OPERATOR.FLIGHT COMMUNICATIONS SPECIALIST [address] [place] [address] PCP - General Family Medicine 08/31/20 Production Operator Relationship Specialty Start Date End Date [facility] HospitalC[facility], BATCH OR CONTINUOUS STILL OPERATOR.FLIGHT COMMUNICATIONS SPECIALIST [address] [place] [address] PCP - General Family Medicine 08/31/20 Production Operator Relationship Specialty Start Date End Date Coco Kaye, BATCH OR CONTINUOUS STILL OPERATOR.FLIGHT COMMUNICATIONS SPECIALIST [address] [place] [address] PCP - [facility] Medicine 08/31/20 Production Operator Relationship Specialty Start Date End Date Coco Kaye, BATCH OR CONTINUOUS STILL OPERATOR.FLIGHT COMMUNICATIONS SPECIALIST [address] [place] [address] PCP - [facility] 08/31/20 Production Operator Relationship Specialty Start Date End Date Coco Kaye, BATCH OR CONTINUOUS STILL OPERATOR.FLIGHT COMMUNICATIONS SPECIALIST [address] [place] [address] PCP - [facility] 08/31/20 Production Operator Relationship Specialty Start Date End Date Coco Kaye, BATCH OR CONTINUOUS STILL OPERATOR.FLIGHT COMMUNICATIONS SPECIALIST [address] [place] [address] PCP - General [facility] Medicine 08/31/20 FOR RECORDS PERTAINING TO PATIENTS [...] BE BASED ON THE PRIMARY CLINICAL RECORDS. [employer] provides no warranty or guarantee of the accuracy or completeness of information in this document.
[2024-06-26] MEDS: Lactated Ringers 1,000 ML 999 ML IV (09:00)
[2024-06-26 09:26] LABS: Absolute Lymphocyte Count 1.36 X10^3/uL (0.83-4.51); Absolute Neutrophil Count 10.3 X10^3/uL (2.0-7.7); Basophil# 0.05 X10^3/uL; Basophil% 0.4 % (0-1); Eosinophil# 0.11 X10^3/uL; Eosinophils% 0.9 % (0-5); Hematocrit 28.8 % (37-47); Hemoglobin 8.6 g/dL (12.0-15.0); Lymphocyte # 1.36 X10^3/ul (0.83-4.51); Lymphocyte % 10.7 % (19-41); Mean Corp Hgb Conc 29.9 g/dL (32-36); Mean Corpuscular Hgb 21.6 pg (27.0-32.0); Mean Corpuscular Volume 72.2 fL (81-99); Mean Platelet Vol. 11.9 fl (6.2-12.0); Monocyte% 4.7 % (0-10); NRBC Flagged by Analyzer 0 % (0-5); Neutrophil # 10.29 X10^3/uL (2.7-7.7); Platelet Count 283 K/mm3 (150-450); RBC Distribution Width CV 15.7 % (11.6-14.6); RBC Distribution Width SD 40.6 fl (35.1-43.9); Red Blood Count 3.99 M/mm3 (4.2-5.4); White Blood Count 12.7 K/mm3 (4.4-11.0)
[2024-06-26] MEDS: Penicillin G Pot 5,000,000 UNITS in 0.9% Normal Saline (100mL MB+) 100 ML 75 UNITS IV (10:04)
[2024-06-26] MEDS: Lactated Ringers 1,000 ML 50 ML IV (10:05)
[2024-06-26 10:30] LABS: Syphilis Antibodies Non-reactive
[2024-06-26] MEDS: fentaNYL-bupivacaine (epidural) 100 ML BAG EPIDURAL ×2 (10:30→16:19)
--- NOTE | 2024-06-26 11:19 | HP.PCM.OB_ITS ---
HPI - General General Date of Admission: 06/26/24 Date of Service: 06/26/24 Chief Complaint: contractions HPI Narrative STAN DAI, is a 28 F G 1 P0 W2 39 6/7 WEEKS presents c/o ctxs. Off and on for a couple of days, worse this am since 1 am. Was 1 cm on Sunday, then 3 cm on Sunday, now 4 cm. Admitted for labor. Denies gross VB/LOF. Good FM. Patient is group B strep positive. Past medical history significant for seasonal allergies, maternal obesity with BMI of 33. Patient is Rh-. Past surgical history: None Maternal Data Information TIFFANIE Calculator Estimated Delivery Date Method Current WG Current Estimate 06/27/24 Manual 39w 6d Final TIFFANIE: 06/27/24 [facility] Medical History (Updated 06/26/24 @ 11:[address] Taylor Maldonado MD) Ovarian cyst Home Medications ?Medication ?Instructions ?Recorded ?Last Taken ?Type sulfamethoxazole 800 1 tab PO BID #6 TABLETS 08/30/23 Unknown Rx mg-trimethoprim 160 mg tablet Allergy/AdvReac Type Severity Reaction Status Date / Time cefaclor (From Ceclor) Allergy Intermediate rash, hives Verified 06/24/24 13:39 dyclonine Allergy Intermediate Rash Verified 06/24/24 13:40 Surgical History History of left salpingo-oophorectomy Social History Smoking Status: Never smoker History Elective abortions Hx Para 0 Spontaneous abortions Hx # Term Pregnancies Ectopic pregnancies Hx # Pregnancies Multiple births # of living children ROS Constitutional Constitutional: Denies fatigue, fever(s) or malaise Eyes Eyes: Denies change in vision ENT HEENT: Denies dizziness or headache(s) Cardiovascular Cardiovascular: Denies chest pain, dyspnea or lightheadedness Respiratory/Chest Respiratory/Chest: Denies cough or dyspnea Gastrointestinal Gastrointestinal: Denies change in bowel habits Genitourinary Genitourinary: Denies burning urination or genital lesions Integumentary Integumentary: Denies rash Neurologic Neurologic: Denies confusion, dizziness, headache(s), numbness or weakness Vital Signs Vital Signs Vital Signs: 06/26/24 06:56 06/26/24 06:56 06/26/24 06:56 Temperature 97.9 F Temperature Source Temporal Pulse Rate Respiratory Rate 14 Blood Pressure BP Systolic BP Diastolic Pulse Ox 06/26/24 06:57 06/26/24 06:57 06/26/24 07:57 Temperature Temperature Source Pulse Rate 96 80 Respiratory Rate Blood Pressure 113/75 BP Systolic 113 BP Diastolic 75 Pulse Ox 06/26/24 07:57 06/26/24 07:58 06/26/24 07:58 Temperature Temperature Source Tympanic Pulse Rate Respiratory Rate 15 Blood Pressure BP Systolic BP Diastolic Pulse Ox 99 06/26/24 07:58 06/26/24 07:58 06/26/24 09:53 Temperature 98.7 F Temperature Source Pulse Rate 100 Respiratory Rate Blood Pressure BP Systolic BP Diastolic Pulse Ox 98 06/26/24 09:53 06/26/24 09:55 06/26/24 09:55 Temperature Temperature Source Pulse Rate 89 Respiratory Rate Blood Pressure 135/91 H BP Systolic 135 BP Diastolic 91 Pulse Ox 100 06/26/24 09:55 06/26/24 09:59 06/26/24 09:59 Temperature Temperature Source Pulse Rate 100 Respiratory Rate 22 H Blood Pressure 131/86 H BP Systolic 131 BP Diastolic 86 Pulse Ox 06/26/24 09:59 06/26/24 10:05 06/26/24 10:05 Temperature Temperature Source Pulse Rate 109 H Respiratory Rate 15 Blood Pressure 130/81 H BP Systolic 130 BP Diastolic 81 Pulse Ox 06/26/24 10:10 06/26/24 10:10 06/26/24 10:10 Temperature Temperature Source Pulse Rate 110 H Respiratory Rate 18 Blood Pressure 136/81 H BP Systolic 136 BP Diastolic 81 Pulse Ox 06/26/24 10:15 06/26/24 10:15 06/26/24 10:20 Temperature Temperature Source Pulse Rate 112 H Respiratory Rate Blood Pressure 127/80 H 131/81 H BP Systolic 127 131 BP Diastolic 80 81 Pulse Ox 06/26/24 10:20 06/26/24 10:26 06/26/24 10:26 Temperature Temperature Source Pulse Rate 100 104 H Respiratory Rate Blood Pressure 125/82 H BP Systolic 125 BP Diastolic 82 Pulse Ox 06/26/24 10:30 06/26/24 10:30 06/26/24 10:37 Temperature Temperature Source Pulse Rate 87 Respiratory Rate Blood Pressure 104/58 L 132/61 H BP Systolic 104 132 BP Diastolic 58 61 Pulse Ox 06/26/24 10:37 06/26/24 10:37 06/26/24 10:42 Temperature Temperature Source Pulse Rate 109 H 101 H Respiratory Rate Blood Pressure BP Systolic BP Diastolic Pulse Ox 99 06/26/24 10:42 06/26/24 10:47 06/26/24 10:47 Temperature Temperature Source Pulse Rate 101 H Respiratory Rate Blood Pressure BP Systolic BP Diastolic Pulse Ox 100 99 06/26/24 10:52 06/26/24 10:52 06/26/24 10:57 Temperature Temperature Source Pulse Rate 105 H 116 H Respiratory Rate Blood Pressure BP Systolic BP Diastolic Pulse Ox 99 06/26/24 10:57 06/26/24 11:02 06/26/24 11:02 Temperature Temperature Source Pulse Rate 110 H Respiratory Rate Blood Pressure BP Systolic BP Diastolic Pulse Ox 99 99 06/26/24 11:07 06/26/24 11:07 06/26/24 11:12 Temperature Temperature Source Pulse Rate 111 H 99 Respiratory Rate Blood Pressure BP Systolic BP Diastolic Pulse Ox 99 06/26/24 11:12 06/26/24 11:17 06/26/24 11:17 Temperature Temperature Source Pulse Rate 88 Respiratory Rate Blood Pressure BP Systolic BP Diastolic Pulse Ox 99 99 Weight Weight: 88.178 kg Body Mass Index (BMI) 33.3 Physical Exam Narrative cervix 4/79/-2, AROM w/ return of moderate amount of clear fluid Const alert and no apparent distress General Appearance: cooperative HEENT normocephalic Resp normal respiratory effort Cardio regular rate GI soft to palpation GI Narrative: gravid, nontender, appropriate for gestational age Extremity no calf tenderness General Extremity: edema Skin no wounds Rashes: No rashes noted Psych activity/motor behavior normal Labs Labs Labs: Blood Type O NEGATIVE Antibody Screen NEGATIVE Hct 28.8 % (37-47) L Hgb 8.6 g/dL (12.0-15.0) L Syphilis Total Ab Non-reactive Assessment & Plan (1) Spontaneous onset of labor: PLAN: Estimated weight is less than 4500 g clinically and pelvis clinically adequate to expect vaginal delivery. May have routine pain control measures as needed during labor. Will augment with Pitocin as needed. (2) 39 weeks gestation of : (3) GBS (group B Streptococcus carrier), +RV culture, currently : PLAN: Antibiotic prophylaxis initiated. I am aware of Ceclor allergy. Patient will be started on penicillin prophylaxis and monitored for allergic reactions. (4) Inflammatory disorder of skin of vulva: PLAN: Patient has a skin lesion of the vulva that is in an area where it rubs on clothing and gets irritated. Would like this removed at time of delivery. Risk benefits and alternatives were reviewed.
[2024-06-26] MEDS: Oxytocin 15 Units/NS 250ml 15 UNITS/250 ML IV.SOLN 2 UNITS IV (12:00)
[2024-06-26] MEDS: Penicillin G 3,000,000 Units 50 ML 100 UNITS IV ×2 (14:02→18:26)
[2024-06-26] MEDS: LACTATED RINGERS 500 ML 999 ML IV (14:45)
[2024-06-26] MEDS: Ondansetron 4 MG/2 ML Vial IV (18:52)
[2024-06-26] MEDS: Oxytocin 15 Units/NS 250ml 15 UNITS/250 ML IV.SOLN 83 UNITS IV (23:02)
--- NOTE | 2024-06-26 23:17 | EX.PCM.OBVAG ---
Assessment & Plan (1) Inflammatory disorder of skin of vulva: (2) Spontaneous onset of labor: (3) Vacuum extractor delivery, delivered: (4) Meconium in amniotic fluid affecting management of mother: (5) Category II heart rate tracing during maternal care in third trimester: Maternal Data Information TIFFANIE Calculator Estimated Delivery Date Method Current WG Current Estimate 06/27/24 Manual 39w 6d Gestational age: 39 6/7 Vaginal Delivery Maternal Presentation Maternal Presentation: Active Labor Vaginal Delivery Information Procedure Performed: Vacuum Assisted Vaginal Delivery Station at time of placement: +3 ( labia 3 cm w/ pushing) Number of vacuum pulls: 2 Number of vacuum pop offs: 1 (zero pop offs) Length of time vacuum on: 23:21 (2 contractions, no pop offs) Surgeon/Practitioner: Taylor Maldonado Date of Procedure: 06/26/24 Pre-Procedure Diagnosis: tachycardia with variables, maternal exhaustion, thick meconium Post-Procedure Diagnosis: same Type of anesthesia: Epidural Special Medications: none Estimated Blood Loss: 400 Time of Delivery: 22:28 Findings Description of procedure: I was called in for delivery. Patient was pushing well. She was starting to separate labia with maternal pushing efforts. Position was MADISYN. Santos catheter was then placed. Pelvis was clinically adequate to expect vaginal delivery. Estimated weight was less than 4000 g clinically. Patient was becoming fatigued and heart tones were category 2. Baseline was rising and was up to 200. There is still moderate variability but there were some variable decelerations. I discussed with the patient and her response and alternatives to trial of vacuum-assisted vaginal delivery and they desire to proceed. The vacuum was placed on the flexion point and 550 mmHg created. Pulled with 2 pulls and no pop offs. The vacuum was then removed and the patient spontaneously delivered the remainder the infant with maternal pushing efforts only. A vigorous female infant was delivered MADISYN over a second-degree perineal laceration. The remainder the infant was delivered with maternal pushing and gentle traction only in less than 15 seconds. The Pitocin infusion was initiated for active management of the third stage. The cord was clamped and cut rather quickly because of the thick meconium to allow the to be placed on the warmer and assessed by the team. The infant was attended to by the waiting nursing staff. The placenta was delivered spontaneously and intact. The cervix and vagina were intact. The second-degree perineal laceration was repaired with 2-0 Vicryl suture in a running standard fashion. Sponge and needle counts were correct. A vaginal sweep was completed by me. Presentation: MADISYN Amniotic Membrane Rupture Type: Artificial Amniotic Fluid Description: Thick meconium (started clear) Placental Delivery Description: Spontaneous Placenta Disposition: [facility] Specimen collected: Yes Description of specimen(s) removed: vulvar lesion- left labium majorum Cord Vessel Description: 3 Vessels Cord Entanglement: None Cord Gases: ABG and VBG Infant A Gender: Female (1 minute): 6 (5 minute): 8 Delayed Cord Clamping: No Senior Quality Methods Specialist logging operations inspector: No Post Vaginal Deli Medications given after delivery: IV Pitocin Episiotomy Description: None Laceration: 2nd degree Complication Complications: No
--- NOTE | 2024-06-26 23:53 | NURSING ---
this RN waiting to perform Rh workup since pt has a CBC to be drawn in the AM. will complete one total blood draw for both Rh workup and CBC. fire extinguisher charger aware.
[2024-06-27] VITALS (27 sets, daily range): BP systolic 131–160; BP diastolic 75–93; PULSE 71–107; RESP 16–18; TEMP 36.1–36.9; O2SAT 97–100
[2024-06-27 00:21] LABS: Pathology Specimen OB SEE PATHOLOGY REPORT
[2024-06-27] MEDS: Ibuprofen 600 MG Tablet PO ×2 (01:45→13:05)
[2024-06-27] MEDS: Benzocaine/Lanolin/Aloe Vera 85 GM Spray 1 SPRAY TOPICAL (01:45)
[2024-06-27] MEDS: 0.9% Saline Lock 10 ML Syringe IV ×2 (01:45→05:58)
[2024-06-27] MEDS: Dibucaine 30 GM Tube 1 APPLIC TOPICAL (01:46)
[2024-06-27 06:12] LABS: Absolute Neutrophil Count 15.7 X10^3/uL (2.0-7.7); Basophil# 0.05 X10^3/uL; Basophil% 0.3 % (0-1); Eosinophil# 0.04 X10^3/uL; Eosinophils% 0.2 % (0-5); Hematocrit 24.8 % (37-47); Hemoglobin 7.6 g/dL (12.0-15.0); Mean Corp Hgb Conc 30.6 g/dL (32-36); Mean Corpuscular Volume 71.7 fL (81-99); Mean Platelet Vol. 11.7 fl (6.2-12.0); Monocyte# 1.14 X10^3/uL; Monocyte% 6.2 % (0-10); NRBC Flagged by Analyzer 0 % (0-5); Neutrophil # 15.66 X10^3/uL (2.7-7.7); Neutrophil % 84.8 % (47-70); Platelet Count 225 K/mm3 (150-450); RBC Distribution Width CV 15.7 % (11.6-14.6); RBC Distribution Width SD 40.1 fl (35.1-43.9); Red Blood Count 3.46 M/mm3 (4.2-5.4); White Blood Count 18.5 K/mm3 (4.4-11.0)
[2024-06-27] MEDS: Rho(D) Immune Globulin 300 MCG (1500 Unit) Syringe IV (09:10)
[2024-06-27] MEDS: Acetaminophen 500 MG Tablet 1000 MG PO (13:05)
--- NOTE | 2024-06-27 20:36 | PCM.PN.CNM ---
Subjective Subjective Patient seen at bedside. Denies any pain. Ambulating and voiding without difficulty. Lochia decreasing. Objective Data Objective Data Vital Signs: Vital Signs Temp Pulse Resp BP Pulse Ox O2 Del Method 97.9 F 71 16 138/87 H 98 Room Air 06/27/24 20:00 06/27/24 20:00 06/27/24 20:00 06/27/24 20:00 06/27/24 20:00 06/27/24 20:00 Oxygen Delivery Method Room Air Weight: 194 lb 6.4 oz Body Mass Index (BMI) 33.3 Intake & Output: Intake and Output for Last 24 Hours 06/25/24 06/26/24 06/27/24 23:59 23:59 23:59 Intake Total 2516.46 / 2516.46 226.87 / 226.87 Output Total 900 / 900 900 / 900 Balance 1616.46 / 1616.46 -673.13 / -673.13 Lab / Micro Data Attestation: I reviewed the patient's lab results. 06/27/24 05:55 Labs: Laboratory Results - last 24 hr 06/27/24 05:55: WBC 18.5 H, RBC 3.46 L, Hgb 7.6 L, Hct 24.8 L, MCV 71.7 L, MCH 22.0 L, MCHC 30.6 L, RDW Std Deviation 40.1, RDW Coeff of Imelda 15.7 H, Plt Count 225, MPV 11.7, Immature Gran % (Auto) 1.500 H, Neut % (Auto) 84.8 H, Lymph % (Auto) 7.0 L, [facility] [facility] % (Auto) 6.2, Eos % (Auto) 0.2, Baso % (Auto) 0.3, Absolute Neuts (auto) 15.7 H, Absolute Lymphs (auto) 1.30, Nucleated RBC % 0, Screen NEGATIVE, Baby's Blood Type A POSITIVE, Baby's DILEEP NEGATIVE ROS Eyes Eyes: Denies blurry vision, change in vision or spots in vision ENT HEENT: Denies dizziness or headache(s) Cardiovascular Cardiovascular: Denies abdominal pain, chest pain or dyspnea Respiratory/Chest Respiratory/Chest: Denies cough, dyspnea, shortness of breath at rest or shortness of breath with exertion Gastrointestinal Gastrointestinal: Denies abdominal pain, diarrhea or vomiting Genitourinary Genitourinary: Denies change in urinary stream, difficulty urinating or dysuria Musculoskeletal Musculoskeletal: Reports none Integumentary Integumentary: Denies rash Neurologic Neurologic: Denies dizziness, headache(s), memory loss or weakness Physical Exam Const alert and no apparent distress General Appearance: cooperative and comfortable Exam Limitations: no limitations HEENT normocephalic Eyes General Eye: normal appearance of both eyes Neck full ROM General: normal visual inspection Chest Chest: symmetrical chest wall rise Resp normal respiratory effort and normal air movement Effort and Inspection: symmetric chest movement Auscultation: clear to auscultation bilaterally Cardio regular rate and regular rhythm GI normal to inspection, nondistended, normoactive bowel sounds Back/Spine normal ROM Extremity full ROM and no calf tenderness General Extremity: normal exam except as noted Skin no rashes or lesions noted Neuro oriented x3 Speech: speech normal Psych mental status grossly normal Thought Process: normal thought process Assessment & Plan (1) Vacuum extractor delivery, delivered: (2) Laceration, obstetrical, second degree: (3) Care and examination of lactating mother: (4) Anemia affecting : PLAN: Plan PPD 1 VAVD Hgb 7.5 down from 8.6 Start oral iron supplementation support Increase ambulation Anticipate discharge home tomorrow
[2024-06-28 01:20] VITALS: BP 119/72; PULSE 74; PULSE 75; RESP 16; TEMP 36.4; O2SAT 98
[2024-06-28 01:21] VITALS: BP 119/72; PULSE 71
--- NOTE | 2024-06-28 08:06 | PCM.DC.SUM ---
Providers Date of Admission: 06/26/24 Primary Care Physician: CAMERON Canseco Reason For Visit: VAGINAL DELIVERY Diagnosis Discharge Diagnosis (1) Vacuum extractor delivery, delivered: Status: Acute Code(s): O75.9 - Complication of labor and delivery, unspecified (2) Laceration, obstetrical, second degree: Status: Acute Code(s): O70.1 - Second degree perineal laceration during delivery (3) Care and examination of lactating mother: Status: Acute Code(s): Z39.1 - Encounter for care and examination of lactating mother (4) Anemia affecting : Status: Acute Code(s): O99.019 - Anemia complicating , unspecified trimester Plan PPD 2 VAVD Continue oral iron supplementation support D/C home with follow up in office Medications at Discharge Home Medications acetaminophen 500 mg tablet 1,000 mg (2 x 500 mg) PO Q6H PRN PRN Pain 1-10 Or Fever #0 tabs 06/28/24 benzocaine 20 %-menthol 0.5 % topical aerosol (Dermoplast (with menthol)) 1 spray topical TID PRN PRN perineal discomfort #0 grams 06/28/24 dibucaine 1 % topical ointment 1 applic topical TID PRN PRN Discomfort #0 grams 06/28/24 ferrous sulfate 325 mg (65 mg iron) tablet (FeroSul) 325 mg PO 1200,1700 #0 tabs 06/28/24 ibuprofen 600 mg tablet 600 mg PO Q6H PRN PRN Pain Score 1-10 #0 tabs 06/28/24 Hospital Course Operations None Procedures None Summary of Care Provided Minutes Spent on Discharge: 15 Hospital Course: Patient had vaginal delivery. Hospital course was uneventful. Physical Exam Narrative Patient seen at bedside. Denies pain. Ambulating and voiding without difficulty. Lochia decreased. Desires discharge home today. Const alert and oriented x3 General Appearance: Negative for in distress HEENT normocephalic Eyes General Eye: normal appearance of both eyes Neck General: normal visual inspection Chest Chest: symmetrical chest wall rise Resp normal respiratory effort and normal air movement Effort and Inspection: symmetric chest movement; Negative for tachypneic Auscultation: clear to auscultation bilaterally Cardio regular rate and regular rhythm Peripheral Pulses: pulses 2+ throughout GI normal to inspection, nondistended, normoactive bowel sounds Narrative: Ice to perineum OB / External & Speculum: vaginal bleeding and other Lochia decreasing Uterus Palpation: uterus fundus firm (Below U) Extremity normal to inspection, full ROM and normal capillary refill Skin no rashes or lesions noted Neuro oriented x3, CN's II-XII intact bilaterally and gait normal Psych mental status grossly normal, thought process normal and activity/motor behavior normal Weight / BMI Weight Weight: 194 lb 6.4 oz Body Mass Index (BMI) 33.3 ABG / Lab / Microbiology Data 06/27/24 05:55 Laboratory: Laboratory Results - last 24 hr 06/27/24 05:55: Screen NEGATIVE, Baby's Blood Type A POSITIVE, Baby's DILEEP NEGATIVE D/C Instructions Discharge Diet: No restrictions Discharge Activity: Return to Normal Activity, No Restrictions, May Drive, May Shower and May Take a Tub Bath (Warm water only. No bath salts, soaps, bubbles) May resume sexual activity in: 6-8 weeks Weight Bearing Status: Weight bearing as tolerated Call your doctor if you observe: Fever of 101 or Higher, Inability to urinate, Using more than 1 pad per hour, Shortness of breath, Dizziness, Chest pain, Calf discomfort and Uncontrolled pain Please Follow Up With: [facility] Opal KHALIL When: 2 weeks in office or virtual Meaningful Use Info Meaningful Use Meaningful Use Diagnoses (Choose all that apply): None applicable Ischemic Stroke Statin Dosing Therapy Reference: STATIN DOSE THERAPY REFERENCE: * Patients > 75 years receive moderate or high dose statin therapy. * Patients 75 years or YOUNGER should receive HIGH intensity statin dose unless contraindicated. You will be required to document reason for non-treatment if statin daily dose does not meet guidelines. HIGH DOSE STATIN THERAPY DAILY Atorvastatin > than or = to 40 mg Rosuvastatin > than or = to 20 mg Amlodipine + Atorvastatin > than or = to 2.5/40 mg Ezetimibe + Simvastatin 10/80 mg Simvastatin 80mg Discharge Plan Admission Admit Date/Time: 06/26/24 08:10 Primary Reason for Your Visit: Labor and delivery Attending Provider: Taylor Maldonado Primary Care Provider: uSmaya Kaye OPERATIONS PROFESSIONAL Discharge Orders/Prescriptions Prescriptions: New Dermoplast (with menthol) 20-0.5 % Aerosol 1 spray topical TID PRN PRN (Reason: perineal discomfort) Qty: 0 0RF Protocol: *Topical Application Instructions APPLICATION INSTRUCTIONS: 1 spray 3 times a day as needed for perineal discomfort acetaminophen 500 mg Tablet 1,000 mg PO Q6H PRN PRN (Reason: Pain 1-10 Or Fever) Qty: 0 0RF dibucaine 1 % Ointment 1 applic topical TID PRN PRN (Reason: Discomfort) Qty: 0 0RF Protocol: *Topical Application Instructions APPLICATION INSTRUCTIONS: To perineum for discomfort ferrous sulfate [FeroSul] 325 mg (65 mg iron) Tablet 325 mg PO 1200,1700 Qty: 0 0RF ibuprofen 600 mg Tablet 600 mg PO Q6H PRN PRN (Reason: Pain Score 1-10) Qty: 0 0RF Discontinued sulfamethoxazole-trimethoprim [sulfamethoxazole-trimethoprim] 800-160 mg tablet 1 tab PO BID Qty: 6 0RF Referrals / Follow Up: Shanta Kan CNM [Med Staff - [facility] Practice Prof] - Sumaya Kaye NP, OPERATIONS PROFESSIONAL-C [Primary Care Provider] - Disposition Disposition (needs filled in before D/C Order can be placed): Home, Self Care
[2024-06-28 08:15] VITALS: BP 130/83; PULSE 71; RESP 14; TEMP 36.4
[2024-06-28 08:21] VITALS: BP 130/83; PULSE 71
[2024-06-28] MEDS: Ferrous Sulfate 325 MG Tablet PO (10:50)
== END 2024-06-28 11:00 | disposition home or self-care (01) | DRG 768 ==
LOC: WPOUT 08:22 → WP 08:22
PROVIDERS: Advanced Practice Midwife; Admitting Provider Obstetrics & Gynecology; PCP Nurse Practitioner Family; Referring Provider Obstetrics & Gynecology; Visit Provider Obstetrics & Gynecology
DX: O99.214 Obesity complicating childbirth (principal); Z37.0 Single live birth; D64.9 Anemia, unspecified; L98.9 Disorder of the skin and subcutaneous tissue, unspecified; O99.824 Streptococcus B carrier state complicating childbirth; O99.72 Diseases of the skin and subcutaneous tissue complicating childbirth; O77.0 Labor and delivery complicated by meconium in amniotic fluid; O75.81 Maternal exhaustion complicating labor and delivery; O76 Abnormality in fetal heart rate and rhythm complicating labor and delivery; O70.1 Second degree perineal laceration during delivery; O90.81 Anemia of the puerperium; Z3A.39 39 weeks gestation of pregnancy; Z79.899 Other long term (current) drug therapy
CPT/HCPCS: 59025; 59050; 85025; 85461; 86780; 86850; 86900; 86901; 88305; 90384; 99221; J7120; A4216; G0378; J2405; J2790; J2791